=== PATIENT | female | born 1950 | race Caucasian/White ===

== ENCOUNTER 2024-06-09 08:43 | Emergency (ER) | payer MEDICARE, SELFPAY ==
[2024-06-09 09:21] VITALS: BP 139/70; PULSE 88; RESP 18; TEMP 36.4; O2SAT 93; BMI 15.4
--- NOTE | 2024-06-09 10:03 | XRR_ITS ---
PROCEDURE INFORMATION: Exam: XR Chest Exam date and time: 06/09/2024 11:14 AM Age: 74 years old Clinical indication: Other: Weakness TECHNIQUE: Imaging protocol: Radiologic exam of the chest. Views: 1 view. COMPARISON: No relevant prior studies available. FINDINGS: Lungs: Unremarkable. No consolidation. Pleural spaces: Unremarkable. No pleural effusion. No pneumothorax. Heart/Mediastinum: Unremarkable. No cardiomegaly. Bones/joints: Mild degenerative disease of the left acromioclavicular joint. Mild curvature of the thoracolumbar spine convex to the right. Organs: Calcified gallstones in the right upper quadrant. XR/XR chest 1V portable [id number] IMPRESSION: No acute cardiopulmonary process.
[2024-06-09 10:34] LABS: Basophils % 0.6 %; Eosinophils % 0.3 %; Hematocrit 40.7 % (36-47); Lymphocytes # 1.1 10^3/uL (0.8-4.8); Lymphocytes % 15.6 %; Mean Corpuscular HGB Conc 34.2 g/dL (30-55); Mean Corpuscular Hemoglobin 31.3 pg (27-33); Mean Corpuscular Volume 91.7 fl (85-98); Mean Platelet Volume 9.7 fL (7.4-10.4); Monocytes # 0.6 10^3/uL (0.2-0.9); Monocytes % 7.9 %; Neutrophils # 5.43 10^3/uL (1.8-7.7); Neutrophils % 75.3 %; Nucleated Red Blood Cells % 0 %; Platelet Count 264 10^3/cmm (157-399); Red Blood Count 4.44 10^6/uL (3.85-5.65); Red Cell Distribution Width 14.6 % (12.1-15.1)
[2024-06-09 11:07] LABS: Alanine Aminotransferase 47 U/L (0-33); Albumin Level 3.9 g/dL (3.5-5.2); Alkaline Phosphatase 95 U/L (35-105); Aspartate Amino Transferase 49 U/L (0-32); Blood Urea Nitrogen 7 mg/dL (8-23); Calcium 8.9 mg/dL (8.5-10.5); Carbon Dioxide 25 mmol/L (22-29); Chloride 97 mmol/L (98-107); Creatinine Clr Calc Pharmacy 40.9647; Globulin 2.7 g/dL (1.3-4.6); Glucose 126 mg/dL (65-115); Magnesium 2.2 mg/dL (1.7-2.3); Osmolality Calculated 270 mOsm/kg (285-295); Sodium 130 mmol/L (136-145); Thyroid Stimulating Hormone 1.95 uIU/mL (0.27-4.20); Total Bilirubin 1.2 mg/dL (0.15-1.2); Total Protein 6.6 g/dL (6.6-8.7)
[2024-06-09 11:11] VITALS: BP 143/84; PULSE 78; RESP 16; O2SAT 99
--- NOTE | 2024-06-09 11:36 | CTR_ITS ---
PROCEDURE INFORMATION: Exam: CT Abdomen And Pelvis With Contrast Exam date and time: 06/09/2024 11:55 AM Age: 74 years old Clinical indication: Abdominal pain; Generalized; Additional info: Abd pain TECHNIQUE: Imaging protocol: Computed tomography of the abdomen and pelvis with contrast. Radiation optimization: All CT scans at this facility use at least one of these dose optimization techniques: automated exposure control; mA and/or kV adjustment per patient size (includes targeted exams where dose is matched to clinical indication); or iterative reconstruction. Contrast material: OMNIPAQUE 350; Contrast volume: 75 ml; Contrast route: INTRAVENOUS (IV); COMPARISON: CR (CHEST, ) 06/09/2024 11:14 AM RADIATION DOSE METRICS: Total DLP (mGy-cm): 295.27 FINDINGS: Liver: Normal. No mass. Gallbladder and biliary ducts: Calcified gallstones. Pancreas: Normal. No ductal dilation. Spleen: Normal. No splenomegaly. Adrenal glands: Normal. No mass. Kidneys and ureters: 4 mm simple cyst in the interpolar region of the right kidney. No hydronephrosis on either side. Stomach and bowel: Unremarkable. No obstruction. No mucosal thickening. Appendix: No evidence of appendicitis. Intraperitoneal space: Unremarkable. No free air. No significant fluid collection. Vasculature: Vascular calcifications. Pelvic phleboliths. Lymph nodes: Unremarkable. No enlarged lymph nodes. Urinary bladder: Unremarkable as visualized. Reproductive: Calcified uterine fibroids. Bones/joints: Mild degenerative disease of bilateral sacroiliac joints, symphysis pubis and bilateral hip joints. Mild curvature of the lumbar spine convex to the left. No compression deformity of the vertebral bodies. No spondylolisthesis. Posterior osteophyte disc complex at L3-L4 and L4-L5 with moderate bony canal stenosis. Soft tissues: Fat containing umbilical hernia. CT/CT abdomen pelvis w con* [id number] IMPRESSION: 1. Cholelithiasis with no changes of acute cholecystitis. 2. No acute intra-abdominal process. COMMENTS: Consistent with the [employer]'s Incidental Findings Committee white paper (J Am Ginger Radiol 2018): Any incidental renal lesion less than 1 cm or classified as too small to characterize, or any incidental cystic renal lesion characterized as simple-appearing, is likely benign. No follow-up imaging is recommended for these lesions per consensus recommendations based on imaging criteria.
[2024-06-09] MEDS: iohexol 350 mg/mL 500 mL Btl (per mL) IV (12:00)
--- NOTE | 2024-06-09 12:07 | ECG_ITS ---
[facility] Test Date: 2024-06-09 Pat Name: Monica Taylor Department: Room: Gender: Female [employer]: : 1950 Requested By: Fox Brito Order Number: [id number] Dionne MD: Carlos Brownlee M.D. Measurements Intervals [place] Rate: 89 P: 82 [place]: 137 QRS: 35 QRSD: 76 T: 62 QT: 371 QTc: 452 Interpretive Statements SINUS RHYTHM WITH MARKED SINUS ARRHYTHMIA POSSIBLE LEFT ATRIAL ENLARGEMENT [-0.1mV P-WAVE IN V1/V2] No previous ECG available for comparison Electronically Signed On 06-10-2024 18:47:30 CDT by Carlos Brownlee M.D. [id number]
--- NOTE | 2024-06-09 12:20 | ED_ITS ---
HPI - Weakness 2 General: Chief complaint: Weakness Stated complaint: weakness, no apptite Time Seen by Provider: 06/09/24 11:16 Source: patient Mode of arrival: ambulatory Limitations: no limitations History of Present Illness: 74-year-old female states she has been h aving generalized weakness for months. She states she feels like she is losing blood in her stool will ask her stool color she states its brown has not seen any actual blood but she is concerned she may be anemic she states she is also had a decreased appetite she denies Associated symptoms: Denies chest pain, chills, dysuria, fever(s), headache(s), nausea or vomiting Review of Systems 2 Const: Reports: fatigue and malaise; Denies: fever(s), chills, body aches or change in appetite ENMT: Denies: throat pain or dental pain Card: Denies: chest pain Resp: Denies: dyspnea GI: Denies: abdominal pain, nausea, vomiting or diarrhea : Denies: dysuria Musc: Denies: neck pain or back pain Skin/Breast: Denies: rash Neuro: Denies: headache(s) Physical Exam 2 Const: COMMON NORMALS: no acute distress, patient oriented x3 and healthy appearing HENMT: COMMON NORMALS: normocephalic and atraumatic HEAD & SCALP: n ormocephalic and atraumatic Eye: COMMON NORMALS: Equal, round and reactive pupils present and EOMs intact bilaterally PUPIL: Yes Equal, round and reactive pupils present Neck/C-Spine: COMMON NORMALS: full ROM and supple Chest: COMMONS NORMALS: normal inspection of the chest and normal palpation of entire chest wall Resp: COMMON NORMALS: normal respiratory effort, No retractions, No use of accessory muscles and clear to auscultation bilaterally AUSCULTATION: clear to auscultation bilaterally Cardio: COMMON NORMALS: regular rate, regular rhythm and No murmurs present (Cardio) RATE: regular rate RHYTHM: regular rhythm GI: COMMON NORMALS: Normal to inspection, nondistended, normoactive bowel sounds present, Soft to palpation, non-tender and no masses PALPATION: Yes Soft to palpation Extremity: COMMON NORMALS: normal to inspection and full ROM Neuro: COMMON NORMALS: patient oriented x3, moves all extremities and no focal motor deficits Psych: COMMON NORMALS: mental status grossly normal, Normal thought process present and cooperative THOUGHT PROCESS: Normal thought process present Skin: COMMON NORMALS: no rashes or lesions noted and no wounds GENERAL SKIN EXAM: no rashes or lesions noted Course 2 Vital Signs: Vital signs: Vital Signs Temperature 97.5 F L 06/09/24 09:21 Pulse Rate 84 06/09/24 13:37 Respiratory Rate 16 06/09/24 12:23 Blood Pressure 153/69 06/09/24 13:37 Pulse Oximetry 99 06/09/24 13:37 Oxygen Delivery Me thod Room Air 06/09/24 13:00 MDM - Weakness Medical Decision Making Patient presents here with generalized weakness she is well-appearing here blood work CT scans normal she feels improved after fluids she is stable for discharge we will go to her primary care physician she is return if worsening she understands agrees to plan. Medical Records I reviewed the patient's medical records. Lab Data I reviewed the patient's lab results. 06/09/24 10:18 06/09/24 10:18 Radiology Impressions Chest X-Ray 06/09/24 10:03 IMPRESSION: No acute cardiopulmonary process. Abdomen/Pelvis CT 06/09/24 11:36 IMPRESSION: 1. Cholelithiasis with no changes of acute cholecystitis. 2. No acute intra-abdominal process. COMMENTS: Consistent with the [employer]'s Incidental Findings Committee white paper (J Am Ginger Radiol 2018): Any incidental renal lesion less than 1 cm or classified as too small to characterize, or any incidental cystic renal lesion characterized as simple-appearing, is likely benign. No follow-up imaging is recommended for these lesions per consensus recommendations based on imaging criteria. Laboratory Results WBC 7.20 10^3/uL (3.29-11.43) 06/09/24 10:18 RBC 4.44 10^6/uL (3.85-5.65) 06/09/24 10:18 Hgb 13.90 g/dL (11.27-16.99) 06/09/24 10:18 Hct 40.7 % (36-47) 06/09/24 10:18 MCV 91.7 fl (85-98) 06/09/24 10:18 MCH 31.3 pg (27-33) 06/09/24 10:18 MCHC 34.2 g/dL (30-55) 06/09/24 10:18 RDW 14.6 % (12.1-15.1) 06/09/24 10:18 Plt Count 264 10^3/cmm (157-399) 06/09/24 10:18 MPV 9.7 fL (7.4-10.4) 06/09/24 10:18 Neut % (Auto) 75.3 % 06/09/24 10:18 Lymph % (Auto) 15.6 % 06/09/24 10:18 [place] % (Auto) 7.9 % 06/09/24 10:18 Eos % (Auto) 0.3 % 06/09/24 10:18 Baso % (Auto) 0.6 % 06/09/24 10:18 Neut # (Auto) 5.43 10^3/uL (1.8-7.7) 06/09/24 10:18 Lymph # (Auto) 1.1 10^3/uL (0.8-4.8) 06/09/24 10:18 [place] # (Auto) 0.6 10^3/uL (0.2-0.9) 06/09/24 10:18 Eos # (Auto) 0.0 10^3/uL (0.0-0.8) 06/09/24 10:18 Baso # (Auto) 0.0 10^3/uL (0.0-0.1) 06/09/24 10:18 Nucleated RBC % (auto) 0 % 06/09/24 10:18 Nucleated RBCs # 0.0 /100WBC 06/09/24 10:18 Sodium 130 mmol/L (136-145) L 06/09/24 10:18 Potassium 4.0 mmol/L (3.5-5.1) 06/09/24 10:18 Chloride 97 mmol/L (98-107) L 06/09/24 10:18 Carbon Dioxide 25 mmol/L (22-29) 06/09/24 10:18 Anion Gap 12.0 (5-19) 06/09/24 10:18 BUN 7 mg/dL (8-23) L 06/09/24 10:18 Creatinine 0.7 mg/dL (0.5-0.9) 06/09/24 10:18 GFR Calculation Not Reportable 06/09/24 10:18 Glucose 126 mg/dL (65-115) H 06/09/24 10:18 Calculated Osmolality 270 mOsm/kg (285-295) L 06/09/24 10:18 Calcium 8.9 mg/dL (8.5-10.5) 06/09/24 10:18 Magnesium 2.2 mg/dL (1.7-2.3) 06/09/24 10:18 Total Bilirubin 1.2 mg/dL (0.15-1.2) 06/09/24 10:18 AST 49 U/L (0-32) H 06/09/24 10:18 ALT 47 U/L (0-33) H 06/09/24 10:18 Alkaline Phosphatase 95 U/L (35-105) 06/09/24 10:18 Total Protein 6.6 g/dL (6.6-8.7) 06/09/24 10:18 Albumin 3.9 g/dL (3.5-5.2) 06/09/24 10:18 Globulin 2.7 g/dL (1.3-4.6) 06/09/24 10:18 TSH 1.95 uIU/mL (0.27-4.20) 06/09/24 10:18 Urine Color Yellow (Yellow) 06/09/24 12:28 Urine Appearance Clear (CLEAR) 06/09/24 12:28 Urine pH 7.0 (5-7) 06/09/24 12:28 Ur Specific [place] 1.044 (1.005-1.030) H 06/09/24 12:28 Urine Protein Negative (Negative) 06/09/24 12:28 Urine Glucose (UA) Negative (Normal) 06/09/24 12:28 Urine Ketones 2+ (Negative) H 06/09/24 12:28 Urine Blood Negative (Negative) 06/09/24 12:28 Urine Nitrate Negative (Negative) 06/09/24 12:28 Urine Bilirubin Negative (Negative) 06/09/24 12:28 Urine Urobilinogen 1.0 mg/dL (Negative) 06/09/24 12:28 Ur Leukocyte Esterase Negative (Negative) 06/09/24 12:28 Urine RBC 0-2 /hpf (0-2) 06/09/24 12:28 Urine WBC 0-5 /hpf (0-5) 06/09/24 12:28 Ur Squamous Epith Cells 0-5 /hpf (0-5) 06/09/24 12:28 Amorphous Sediment Not Reportable 06/09/24 12:28 Urine Bacteria None seen /hpf (NONE) 06/09/24 12:28 Hyaline Casts 0.40 /lpf 06/09/24 12:28 All radiology interpretation(s) finalized by discharge EKG Data EKG 1: I personally reviewed and interpreted this EKG as follows: EKG interpretation date: 06/09/24 EKG interpretation time: 12:07 Interpretation: nsr hr [address] elevation qrs 76 qtc 417 Discharge Plan Discharge Patient Disposition: Home Clinical Impression: Weakness Condition: Stable Discharge Orders: Discharge ED (Routine); Ordered 06/09/24 Ordered By: Fox Brito Discharge Diet: Advance as tolerated Discharge Activity: Resume usual activity Patient Instructions: Weakness (ED) Coding Level of Care Code ED Corner Trimmer Operator for Chg Fwd Related Data Allergies Allergy/AdvReac Type Severity Reaction Status Date / Time diphenhydramine Allergy ADR-Anxiety Verified 06/09/24 09:24 [From [facility]]
[2024-06-09] MEDS: sodium chloride 0.9% 1,000 ML 999 ML IV (12:21)
[2024-06-09 12:23] VITALS: BP 139/79; PULSE 84; RESP 16; O2SAT 100
[2024-06-09 12:30] VITALS: BP 135/85; PULSE 79; O2SAT 100
[2024-06-09 12:36] LABS: Bilirubin Urine Negative (Negative); Blood Urine Negative (Negative); Glucose Urine UA Negative (Normal); Ketones Urine 2+ (Negative); Leukocyte Esterase Urine Negative (Negative); Nitrate Urine Negative (Negative); Protein Urine Negative (Negative); Urine Appearance Clear (CLEAR); Urine Color Yellow (Yellow)
[2024-06-09 12:38] LABS: Add Urine Microscopic? YES; Bacteria Urine None Seen /hpf; RBC Urine 0-2 /hpf (0-2); Squamous Epithelial Cell Urine 0-5 /hpf (0-5); WBC Urine 0-5 /hpf (0-5)
[2024-06-09 12:40] LABS: Specific Gravity, Urine 1.044 (1.005-1.030)
--- NOTE | 2024-06-09 12:54 | PC.NURSE ---
pt refused Zofran, kept stating I'm not nauseous. I haven't been throwing up.
[2024-06-09 13:00] VITALS: BP 137/70; PULSE 74; O2SAT 94
[2024-06-09 13:37] VITALS: BP 153/69; PULSE 84; O2SAT 99
--- NOTE | 2024-06-10 08:26 | DCPLANNER ---
[facility]
== END 2024-06-09 13:38 | disposition home or self-care (01) ==
PROVIDERS: Emergency Provider Emergency Medicine
DX: R53.1 Weakness (principal)
CPT/HCPCS: 36415; 71045; 74177; 80053; 81001; 83735; 84443; 85025; 93005; 96360; 99285; J7030

== ENCOUNTER 2024-06-27 10:53 | Inpatient (IN) | payer MEDICARE, SELFPAY ==
[2024-06-27 11:23] VITALS: BP 130/84; PULSE 88; RESP 16; TEMP 36.5; O2SAT 91; BMI 22.3
--- NOTE | 2024-06-27 11:45 | XR_ITS ---
WS: [email or web address] Portable AP upright chest, 06/27/2024 Clinical Data: ams Comparison: Portable chest, 06/09/2024 Findings: No nodules, masses or effusions are seen. The heart is normal. The pulmonary vascularity is not increased. No pneumonia or pneumothorax is seen. There is a dextroscoliosis. The aortic arch anuj ws mild tortuosity. XR/XR chest 1V portable [id number] Impression: Atherosclerosis.
--- NOTE | 2024-06-27 11:45 | XR_ITS ---
WS: [email or web address] Left foot, 3 views, 06/27/2024 Clinical Data: pain Comparison: None. Findings: No fractures or dislocations are seen. No bone destruction or erosion is noted. The joint spaces and soft tissues are normal. There is a plantar spur. XR/XR foot LT min 3V* [id number] Impression: Negative left foot.
--- NOTE | 2024-06-27 11:45 | CT_ITS ---
WS: [id number] CT HEAD NONCONTRAST HISTORY: ams TECHNIQUE: Contiguous axial imaging performed through the brain. Bone and soft tissue windows. Sagitt al and coronal reformats reviewed. All CT scans at [facility] use at least one of these dose optimization techniques: automated exposure control; mA and/or kV adjustment per patient size (includ es targeted exams where dose is matched to clinical indication); or iterative reconstruction. DLP: 959.88 mGy.cm COMPARISON: None available. No acute intracranial hemorrhage, midline shift or mass effect. Mild bilateral symmetric atrophy. Minimal small vessel disease. Tiny acute lacunar infarct anterior l imb of the RIGHT internal capsule. Mild cerebellar atrophy. Ventricles: Normal size with no hydrocephalus. No inferior displacement the cerebellar tonsils. Paranasal sinuses: As visualized are clear. Mastoid air cells: Well pneumatized. Calvarium and scalp: Skull is intact with no soft tissue edema or swelling. CT/CT head wo con* [id number] IMPRESSION: 1. No acute intracranial hemorrhage or edema. 2. Mild atrophy and mild small vessel disease.
--- NOTE | 2024-06-27 11:45 | XR_ITS ---
WS: [email or web address] Right foot, 3 views, 06/27/2024 Clinical Data: pain Comparison: None. Findings: No fractures or dislocations are seen. No bone destruction or erosion is noted. The joint spaces and soft tissues are normal. There is a plantar spur. XR/XR foot RT min 3V* [id number] Impression: Negative right foot.
--- NOTE | 2024-06-27 12:05 | PC.NURSE ---
USED DOPPLAR TO AUSCULTATE PEDAL PULSES. 3+ PITTING EDEMA ON BILATERAL EXTREMITIES. NO PULSES ABLE TO BE AUSCULTATED ON TOPS OF FEET. ABLE TO AUSCULTATE PULSES WITH THE DOPPLAR ON THE INSIDE OF BILATERAL ANKLES.
[2024-06-27 12:48] LABS: Bilirubin Urine Negative (Negative); Blood Urine Negative (Negative); Glucose Urine UA Negative (Normal); Ketones Urine 3+ (Negative); Leukocyte Esterase Urine 1+ (Negative); Nitrate Urine Negative (Negative); Protein Urine 1+ (Negative); Urine Appearance Clear (CLEAR); Urine Color Dark Yellow (Yellow); pH Urine 5.5 (5-7)
--- NOTE | 2024-06-27 12:49 | ED_ITS ---
HPI - Altered Mental Status 2 General: Chief Complaint: Altered Mental Status Stated Complaint: eval Time Seen by Provider: 06/27/24 11:44 Source: patient Mode of arrival: ambulatory Limitations: altered mental status History of Present Illness: 74-year-old female states that she has b een living with her stepdaughter over the last few weeks. Patient is quite confused here and history is difficult to get from her patient she has been living with states that she has been increasingly confused and weak states she is not able to take care of her anymore states that she has not been eating or drinking has been refusing to take her shoes or her close off all patient complains to me is foot pain she is quite confused she knows her name but does not know where she is or the date. Related Data Home Medications Medication Instructions Recorded Confirmed No Known Home Medications 06/27/24 06/27/24 Allergies Allergy/AdvReac Type Severity Reaction Status Date / Time diphenhydramine Allergy ADR-Anxiety Verified 06/09/24 09:24 [[facility]] Review of Systems 2 General: Reports: ROS unobtainable due to mental status Physical Exam 2 Const: COMMON NORMALS: negative for patient oriented x3 HENMT: COMMON NORMALS: normocephalic and atraumatic HEAD & SCALP: n ormocephalic and atraumatic Eye: COMMON NORMALS: conjunctivae normal CONJUNCTIVA: Yes conjunctivae normal Neck/C-Spine: COMMON NORMALS: full ROM and supple Chest: COMMONS NORMALS: normal inspection of the chest Resp: COMMON NORMALS: normal respiratory effort, No retractions, No use of accessory muscles and clear to auscultation bilaterally AUSCULTATION: clear to auscultation bilaterally Cardio: COMMON NORMALS: regular rate, regular rhythm and No murmurs present (Cardio) RATE: regular rate RHYTHM: regular rhythm GI: COMMON NORMALS: Normal to inspection, nondistended, normoactive bowel sounds present, Soft to palpation, non-tender and no masses PALPATION: Yes Soft to palpation Extremity: COMMON NORMALS: normal to inspection and full ROM Neuro: COMMON NORMALS: moves all extremities and no focal motor deficits; negative for patient oriented x3 Psych: COMMON NORMALS: mental status grossly normal, Normal thought process present and cooperative THOUGHT PROCESS: Normal thought process present Skin: COMMON NORMALS: no rashes or lesions noted and no wounds GENERAL SKIN EXAM: no rashes or lesions noted Course 2 Vital Signs: Vital signs: Vital Signs Temperature 97.7 F 06/27/24 11:23 Pulse Rate 88 06/27/24 11:23 Respiratory Rate 16 06/27/24 11:23 Blood Pressure 130/84 06/27/24 11:23 Pulse Oximetry 91 06/27/24 11:23 Oxygen Delivery Me thod Room Air 06/27/24 11:23 MDM - Altered Mental Status Medical Decision Making Patient presents here with possible status along with generalized weakness patient is here with family feels unable to take care of her anymore she is quite confused as well will admit at this time for her confusion. Medical Records I reviewed the patient's medical records. Lab Data I reviewed the patient's lab results. 06/27/24 13:17 06/27/24 13:17 Radiology Impressions Chest X-Ray 06/27/24 11:45 Impression: Atherosclerosis. Foot X-Ray 06/27/24 11:45 Impression: Negative left foot. Head CT 06/27/24 11:45 IMPRESSION: 1. No acute intracranial hemorrhage or edema. 2. Mild atrophy and mild small vessel disease. Laboratory Results WBC 9.73 10^3/uL (3.29-11.43) 06/27/24 13:17 RBC 4.72 10^6/uL (3.85-5.65) 06/27/24 13:17 Hgb 14.80 g/dL (11.27-16.99) 06/27/24 13:17 Hct 44.0 % (36-47) 06/27/24 13:17 MCV 93.2 fl (85-98) 06/27/24 13:17 MCH 31.4 pg (27-33) 06/27/24 13:17 MCHC 33.6 g/dL (30-55) 06/27/24 13:17 RDW 15.0 % (12.1-15.1) 06/27/24 13:17 Plt Count 257 10^3/cmm (157-399) 06/27/24 13:17 MPV 11.7 fL (7.4-10.4) H 06/27/24 13:17 Neut % (Auto) 84.5 % 06/27/24 13:17 Lymph % (Auto) 8.7 % 06/27/24 13:17 [place] % (Auto) 5.9 % 06/27/24 13:17 Eos % (Auto) 0.2 % 06/27/24 13:17 Baso % (Auto) 0.3 % 06/27/24 13:17 Neut # (Auto) 8.22 10^3/uL (1.8-7.7) H 06/27/24 13:17 Lymph # (Auto) 0.9 10^3/uL (0.8-4.8) 06/27/24 13:17 [place] # (Auto) 0.6 10^3/uL (0.2-0.9) 06/27/24 13:17 Eos # (Auto) 0.0 10^3/uL (0.0-0.8) 06/27/24 13:17 Baso # (Auto) 0.0 10^3/uL (0.0-0.1) 06/27/24 13:17 Nucleated RBC % (auto) 0 % 06/27/24 13:17 Nucleated RBCs # 0.0 /100WBC 06/27/24 13:17 ESR 5 mm/hr (0-15) 06/27/24 13:17 Sodium 141 mmol/L (136-145) 06/27/24 13:17 Potassium 4.3 mmol/L (3.5-5.1) 06/27/24 13:17 Chloride 100 mmol/L (98-107) 06/27/24 13:17 Carbon Dioxide 23 mmol/L (22-29) 06/27/24 13:17 Anion Gap 22.3 (5-19) H 06/27/24 13:17 BUN 21 mg/dL (8-23) 06/27/24 13:17 Creatinine 0.5 mg/dL (0.5-0.9) 06/27/24 13:17 GFR Calculation Not Reportable 06/27/24 13:17 Glucose 83 mg/dL (65-115) 06/27/24 13:17 Calculated Osmolality 294 mOsm/kg (285-295) 06/27/24 13:17 Calcium 9.1 mg/dL (8.5-10.5) 06/27/24 13:17 Total Bilirubin 1.2 mg/dL (0.15-1.2) 06/27/24 13:17 AST 37 U/L (0-32) H 06/27/24 13:17 ALT 61 U/L (0-33) H 06/27/24 13:17 Alkaline Phosphatase 91 U/L (35-105) 06/27/24 13:17 C-Reactive Protein 7.3 mg/L (0.0-4.9) H 06/27/24 13:17 Total Protein 6.9 g/dL (6.6-8.7) 06/27/24 13:17 Albumin 4.1 g/dL (3.5-5.2) 06/27/24 13:17 Globulin 2.8 g/dL (1.3-4.6) 06/27/24 13:17 Urine Color Dark yellow (Yellow) A 06/27/24 12:36 Urine Appearance Clear (CLEAR) 06/27/24 12:36 Urine pH 5.5 (5-7) 06/27/24 12:36 Ur Specific [place] 1.034 (1.005-1.030) H 06/27/24 12:36 Urine Protein 1+ (Negative) A 06/27/24 12:36 Urine Glucose (UA) Negative (Normal) 06/27/24 12:36 Urine Ketones 3+ (Negative) H 06/27/24 12:36 Urine Blood Negative (Negative) 06/27/24 12:36 Urine Nitrate Negative (Negative) 06/27/24 12:36 Urine Bilirubin Negative (Negative) 06/27/24 12:36 Urine Urobilinogen 1.0 mg/dL (Negative) 06/27/24 12:36 Ur Leukocyte Esterase 1+ (Negative) A 06/27/24 12:36 Urine RBC 3-5 /hpf (0-2) 06/27/24 12:36 Urine WBC 6-10 /hpf (0-5) 06/27/24 12:36 Ur Squamous Epith Cells 0-5 /hpf (0-5) 06/27/24 12:36 Amorphous Sediment Not Reportable 06/27/24 12:36 Urine Bacteria None seen /hpf (NONE) 06/27/24 12:36 Hyaline Casts 5.36 /lpf 06/27/24 12:36 All radiology interpretation(s) finalized by discharge Discharge Plan Discharge Patient Disposition: Admitted As Inpatient Clinical Impression: Altered mental status, Generalized weakness Condition: Stable Prescriptions: No Action No Known Home Medications Patient Instructions: Altered Mental Status (ED) Coding Level of Care Code ED Tax Professional for Constantino Bowden
[2024-06-27 12:53] LABS: Add Urine Microscopic? YES; Bacteria Urine None Seen /hpf; Hyaline Casts Urine 5.36 /lpf; Squamous Epithelial Cell Urine 0-5 /hpf (0-5)
[2024-06-27 12:57] LABS: Specific Gravity, Urine 1.034 (1.005-1.030)
[2024-06-27 12:58] LABS: Add Urine Culture? No
[2024-06-27 13:32] LABS: Basophils % 0.3 %; Eosinophils % 0.2 %; Lymphocytes # 0.9 10^3/uL (0.8-4.8); Lymphocytes % 8.7 %; Mean Corpuscular HGB Conc 33.6 g/dL (30-55); Mean Corpuscular Hemoglobin 31.4 pg (27-33); Mean Corpuscular Volume 93.2 fl (85-98); Mean Platelet Volume 11.7 fL (7.4-10.4); Monocytes # 0.6 10^3/uL (0.2-0.9); Monocytes % 5.9 %; Neutrophils # 8.22 10^3/uL (1.8-7.7); Neutrophils % 84.5 %; Nucleated Red Blood Cells % 0 %; Platelet Count 257 10^3/cmm (157-399); Red Blood Count 4.72 10^6/uL (3.85-5.65); White Blood Count 9.73 10^3/uL (3.29-11.43)
[2024-06-27 13:37] LABS: Erythrocyte Sedimentation Rate 5 mm/hr (0-15)
[2024-06-27 13:47] LABS: Alanine Aminotransferase 61 U/L (0-33); Albumin Level 4.1 g/dL (3.5-5.2); Alkaline Phosphatase 91 U/L (35-105); Aspartate Amino Transferase 37 U/L (0-32); Blood Urea Nitrogen 21 mg/dL (8-23); C Reactive Protein 7.3 mg/L (0.0-4.9); Calcium 9.1 mg/dL (8.5-10.5); Carbon Dioxide 23 mmol/L (22-29); Chloride 100 mmol/L (98-107); Creatinine Clr Calc Pharmacy 56.6027; Globulin 2.8 g/dL (1.3-4.6); Glucose 83 mg/dL (65-115); Osmolality Calculated 294 mOsm/kg (285-295); Sodium 141 mmol/L (136-145); Total Bilirubin 1.2 mg/dL (0.15-1.2); Total Protein 6.9 g/dL (6.6-8.7)
[2024-06-27 13:50] LABS: Anion Gap 22.3 (5-19); Potassium 4.3 mmol/L (3.5-5.1)
--- NOTE | 2024-06-27 14:32 | PC.NURSE ---
PT refusing vs. Pt also still refuses to answer suicide assessment questions.
--- NOTE | 2024-06-27 14:57 | PM.HP ---
Providers/Chief Complaint Chief Complaint: eval History of Present Illness Monica Taylor is a 74 year old female who has presented to the hospital with generalized weakness fatigue and not been able to eat and to care for self. Stepdaughter is stating that 2 weeks ago she moved in because she was reported by the nurse her barriers that she was wandering in the neighborhood, she seems to have intermittent confusion, patient is consistently saying that she does not want to be admitted or interesting [place] [facility] placement however when I asked her who make decisions for her she started asking her stepdaughter if she would take that responsibility. She is denying chest pain shortness of breath diarrhea vomiting or dysuria. Patient has not taking care of herself very well, her feet are covered with moisture with dark-colored shoe sole that she kept wearing, she was not taking of shoes at home. As per the stepdaughter she has not eaten or drank much in last few days, she is concerned that Monica will not do well and she is dependent on an electric scooter to ambulate in the house and requesting [place] [facility] placement is at the bedside who has been living in a different house for last few years Review of Systems Const: Denies: fever(s) Eyes: Denies: change in vision ENMT: Denies: throat pain Card: Denies: chest pain Resp: Denies: dyspnea GI: Denies: abdominal pain Medications/Allergies Home Medications Medication Instructions Recorded Confirmed Last Taken Type No Known Home Medications 06/27/24 06/27/24 Unknown History Allergies Allergy/AdvReac Type Severity Reaction Status Date / Time diphenhydramine Allergy ADR-Anxiety Verified 06/09/24 09:24 [From Benadjulisal] Vitals/I&O/Wt Last Vital Signs Temp 97.7 F 06/27/24 11:23 Pulse 88 06/27/24 11:23 Resp 16 06/27/24 11:23 BP 130/84 06/27/24 11:23 Pulse Ox 91 06/27/24 11:23 O2 Del Method Room Air 06/27/24 11:23 Weight last 48 hrs Weight 58.967 kg Physical Exam Narrative: Unkept appearance Deconditioned No active chest pain Hemodynamic stable Currently on room air Moist skin of lower extremities and foot noted I do not see any active sign of cellulitis No neurovascular compromise Patient is emaciated malnourished Stepdasusan and at the bedside I do not see any focal deficit S1, S2 Data 06/27/24 13:17 06/27/24 13:17 A&P Assessment and plan (1) Altered mental status: (2) Generalized weakness: (3) Failure to thrive: Plan Metabolic encephalopathy related to dehydration At this point patient is answer my questions appropriately G weakness Failure to thrive Not been able to eat or drink much, losing weight, Will request physical therapy Probably will need [place] [facility] placement if family not able to take care of her Case management consultation has been living separately for last few years as per the stepdaughter She might appoint rodrigo as a medical DPOA Full code Cardiac diet As per the stepdaughter Monica has been confused intermittently no last few weeks there is concern for dementia At this point she is able to make good eye contact, answer my question appropriately She seems to have poor insight but stating that she does not have any pay source to pay for [place] [facility] so she does not want to go there She is also stating that she is depressed and wants to do something but she has not decided yet I will consult psych for further evaluation I will start her on antidepressants patient not endorsing suicidal ideation Attestations Medical Necessity Statement*: More than 2 midnights anticipated Diagnoses Altered mental status R41.82 Generalized weakness R53.1 Failure to thrive
[2024-06-27 16:13] VITALS: BP 137/77; PULSE 90; RESP 14; O2SAT 99
[2024-06-27 16:25] LABS: Procalcitonin 0.06 ng/mL (0-0.5)
[2024-06-27 16:57] LABS: D Dimer 3.13 ug/mLFEU (0-0.59)
[2024-06-27 17:10] LABS: Estmated Average Glucose 120; Hemoglobin A1C 5.8 % (4.0-6.0)
[2024-06-27] MEDS: cefTRIAXone 1,000 mg SDV 1000 MG IVP (17:26)
[2024-06-27] MEDS: sodium chloride 0.9% 1,000 ML 75 ML IV (17:27)
--- NOTE | 2024-06-27 17:42 | USR_ITS ---
PROCEDURE INFORMATION: Exam: US Duplex Lower Extremity Veins, Bilateral Exam date and time: 06/27/2024 9:39 PM Age: 74 years old Clinical indication: Edema, localized; Lower extremity, bilateral; Additional info: Swelling TECHNIQUE: Imaging protocol: Real-time duplex ultrasound of the bilateral extremities with 2-D roland scale, color Doppler flow and spectral waveform analysis including responses to compression and other maneuvers (when performed) with image documentation. Complete exam focused on the lower extremity veins. COMPARISON: CT abdomen pelvis w con* [id number] 06/09/2024 11:55 AM FINDINGS: Right deep veins: Unremarkable. The common femoral, femoral, proximal profunda femoral and popliteal veins are patent without thrombus. Normal Doppler waveforms. Normal compressibility and/or augmentation response. Left deep veins: Hyperechogenicity within the left popliteal vein without color flow or spectral waveform consistent with deep venous thrombosis. The thrombus central tendons into the posterior tibial and peroneal veins. The common femoral, femoral, and proximal profunda femoral veins are patent without thrombus. Superficial veins: Greater saphenous veins at the saphenofemoral junctions are patent bilaterally without thrombus. Soft tissues: Unremarkable. US/[place] [id number] IMPRESSION: 1. Acute deep venous thrombosis is noted extending from the left popliteal vein through the left posterior tibial and peroneal veins. 2. No DVT in the right lower extremity.
--- NOTE | 2024-06-27 17:42 | CTR_ITS ---
PROCEDURE INFORMATION: Exam: CTA Chest With Contrast Exam date and time: 06/28/2024 12:30 AM Age: 74 years old Clinical indication: Other: Left leg has dvt, falls TECHNIQUE: Imaging protocol: Computed tomographic angiography of the chest with contrast. Exam focused on the arteries. 3D rendering (Not supervised by radiologist): MIP and/or 3D reconstructed images were created by the technologist. Radiation optimization: All CT scans at this facility use at least one of these dose optimization techniques: automated exposure control; mA and/or kV adjustment per patient size (includes targeted exams where dose is matched to clinical indication); or iterative reconstruction. Contrast material: OMNI 350; Contrast volume: 75 ml; Contrast route: INTRAVENOUS (IV); COMPARISON: CR XR chest 1V portable [id number] 06/27/2024 11:51 AM RADIATION DOSE METRICS: Total DLP (mGy-cm): 189.68 FINDINGS: Pulmonary arteries: Filling defects within the posterior right upper lobe segmental (series 10, image 209), lower lobar (series 10, image 315), and lower posterior segmental pulmonary arteries (series 10, image 361) consistent with pulmonary emboli. Aorta: Unremarkable. No aortic aneurysm. No aortic dissection. Lungs: Unremarkable. No consolidation. No masses. Pleural spaces: Unremarkable. No pneumothorax. No pleural effusion. Heart: Unremarkable. No cardiomegaly. No pericardial effusion. Heart RV/LV ratio: 0.79 Lymph nodes: Unremarkable. No enlarged lymph nodes. Gallbladder and biliary ducts: Cholelithiasis without evidence of acute cholecystitis. Bones/joints: Multilevel spondylosis. Soft tissues: Unremarkable. CT/CT angio chest PE protcl [id number] IMPRESSION: 1. Right upper lobe posterior segmental, right lower lobar, and right lower posterior segmental pulmonary emboli. 2. No right heart strain.
[2024-06-27 17:58] LABS: Thyroid Stimulating Hormone 2.44 uIU/mL (0.27-4.20); Vitamin B12 199 pg/mL (232-1245)
--- NOTE | 2024-06-27 18:03 | PC.NURSE ---
Patient refused SCD's. This nurse explained why the order was given and how they help to prevent blood clots. Patient refused.
[2024-06-27 19:30] VITALS: BP 143/79; PULSE 79; RESP 17; TEMP 36.6; O2SAT 96
[2024-06-27] MEDS: enoxaparin 40 mg/0.4 mL Syringe SUBCUT (23:14)
[2024-06-27 23:58] VITALS: BP 156/74; PULSE 91; RESP 16; TEMP 36.9; O2SAT 97
[2024-06-28] VITALS: BP 156/74; PULSE 91; RESP 16; TEMP 36.9; O2SAT 97
[2024-06-28] MEDS: iohexol 350 mg/mL 500 mL Btl (per mL) IV (00:53)
--- NOTE | 2024-06-28 03:30 | P.NPUCON_ITS ---
Providers/Reason for Consult 2 Attending Physician: Blanca Niño MD Psych Consult HPI History of Present Illness Monica Taylor is a 74 year old female Meds Home Medications and Allergies Home Medications Medication Instructions Recorded Confirmed Last Taken Type No Known Home Medications 06/27/24 06/27/24 Unknown History Allergies Allergy/AdvReac Type Severity Reaction Status Date / Time diphenhydramine Allergy ADR-Anxiety Verified 06/09/24 09:24 [From Benadryl] Current Medications Current Medications Generic Name Dose Route Start Last Admin Trade Name Freq PRN Reason Stop Dose Admin Apixaban 10 mg 06/28/24 21:00 07/01/24 08:43 Apixaban 5 Mg Tablet PO 07/05/24 20:59 10 mg BID@0900,2100 CIARA Administration Cyanocobalamin 1,000 mcg 06/30/24 09:00 07/01/24 08:43 Cyanocobalamin 1,000 Mcg/Ml Sdv IM 1,000 mcg DAILY CIARA Administration Escitalopram Oxalate 10 mg 06/28/24 09:00 07/01/24 08:43 Escitalopram 10 Mg Tablet PO 10 mg DAILY CIARA Administration Lisinopril 10 mg 06/28/24 09:00 07/01/24 08:46 Lisinopril 10 Mg Tablet PO 10 mg DAILY CIARA Administration Olanzapine 2.5 mg 07/01/24 09:00 07/01/24 08:43 Olanzapine 5 Mg Tablet PO 2.5 mg Q12H CIARA Administration Senna/Docusate Sodium 1 tab 06/28/24 09:00 07/01/24 08:43 Sennosides-Docusate Tablet PO 1 tab DAILY CIARA Administration Mental Status Exam 2 MSE Comments: This is an underweight versus cachectic white female in hospital gownwith limited grooming and eye contact. Occasionally hiding under covers. No abnormal movements except for psychomotor retardation. Mostly uncooperative with exam in moderate distress. Speech was decreased rate and volume. Mood described as i do not know affect odd and paranoid. Thought process linear. Thought content: Patient denied current suicidal or homicidal ideation, there were no delusions reported but paranoid, persecutory and possibly nihilistic delusions noted, she denied auditory or visual hallucinations reported and she does not appear to be attending to internal stimuli. Attention and concentration were limited and memory was mostly unreliable but none were formally tested. She is alert and oriented x person. Insight, judgment and impulse control are impaired. Vitals/I&O/Wt Last Vital Signs Temp 98.2 F 07/01/24 08:00 Pulse 84 07/01/24 08:00 Resp 16 07/01/24 08:00 BP 129/69 07/01/24 08:00 Pulse Ox 96 07/01/24 08:00 O2 Del Method Room Air 07/01/24 08:00 06/30/24 07/01/24 07/01/24 22:59 06:59 14:59 Intake Total 120 / 360 120 / 480 Output Total 300 / 300 Balance 120 / 360 -180 / 180 Weight last 48 hrs Weight 44.18 kg Weight 44.044 kg Data NPU 06/30/24 06:16 06/30/24 06:16 A&P Assessment and plan (1) DVT (deep venous thrombosis): (2) Pulmonary embolism: (3) Failure to thrive: (4) Altered mental status: (5) Encounter for assessment of decision-making capacity: (6) Depression with anxiety: Plan This is a 74-year-old white female with limited reported history of mental health treatment who presents quite distressed and not answering many questions seeming confused at times. 1. Continue current medication. 2. Patient lacks decision-making capacity. Either due to memory difficulties or mental health she is incapable of articulating her desires, identifying risks, benefits and alternative living situation, expressing comprehension of the different alternatives to treatment plan or even articulating with the plan for treatment is around. 3. Obtain collateral information to understand mental health background. 4. Will continue to follow. Attestations NPU 2 Medical Necessity Statement*: N/A. Please see primary team note for medical necessity. Coding Level of Care Code Acute Code for [facility] Fwd Diagnoses DVT (deep venous thrombosis) I82.409 Pulmonary embolism I26.99 Failure to thrive Altered mental status R41.82 Encounter for assessment of decision-making capacity Z00.8 Depression with anxiety F41.8
[2024-06-28 04:00] VITALS: BP 149/74; PULSE 86; RESP 18; TEMP 36.8; O2SAT 99
[2024-06-28 05:11] LABS: Basophils % 0.3 %; Eosinophils % 0.2 %; Hematocrit 39.3 % (36-47); Lymphocytes # 0.7 10^3/uL (0.8-4.8); Lymphocytes % 8.2 %; Mean Corpuscular HGB Conc 33.3 g/dL (30-55); Mean Corpuscular Hemoglobin 30.8 pg (27-33); Mean Corpuscular Volume 92.3 fl (85-98); Mean Platelet Volume 11.3 fL (7.4-10.4); Monocytes # 0.5 10^3/uL (0.2-0.9); Monocytes % 5.7 %; Neutrophils # 7.39 10^3/uL (1.8-7.7); Neutrophils % 85.4 %; Nucleated Red Blood Cells % 0 %; Platelet Count 218 10^3/cmm (157-399); Red Blood Count 4.26 10^6/uL (3.85-5.65); Red Cell Distribution Width 14.9 % (12.1-15.1); White Blood Count 8.66 10^3/uL (3.29-11.43)
[2024-06-28 05:33] LABS: Anion Gap 17.9 (5-19); Blood Urea Nitrogen 16 mg/dL (8-23); Calcium 8.2 mg/dL (8.5-10.5); Carbon Dioxide 22 mmol/L (22-29); Chloride 107 mmol/L (98-107); Glucose 97 mg/dL (65-115); Magnesium 1.8 mg/dL (1.7-2.3); Osmolality Calculated 297 mOsm/kg (285-295); Potassium 3.9 mmol/L (3.5-5.1); Sodium 143 mmol/L (136-145)
[2024-06-28 07:28] VITALS: BP 144/74; PULSE 75; RESP 17; TEMP 36.7; O2SAT 99
[2024-06-28] MEDS: sennosides-docusate Tablet 1 TAB PO (08:58)
[2024-06-28] MEDS: escitalopram 10 mg Tablet PO (08:59)
[2024-06-28] MEDS: lisinopril 10 mg Tablet PO (08:59)
--- NOTE | 2024-06-28 09:34 | P.PN_ITS ---
Subjective 2 Subjective: This morning patient is still adamant that she wants to go home and this will not work out stating that she has no money at all, her [id number] is at the bedside Patient is aware that she has a clot in her lung and her leg She was questioning how she developed that As per the [id number] she has not been leading sedentary lifestyle but stating that sometimes she would just lay in 1 position for quite some time Appreciate Dr. Mariano evaluation yesterday, he is stating that patient does not have good capacity to make decisions for herself Vitals/I&O/Wt Last Vital Signs Temp 98.0 F 06/28/24 07:28 Pulse 75 06/28/24 07:28 Resp 17 06/28/24 07:28 BP 144/74 06/28/24 07:28 Pulse Ox 99 06/28/24 07:28 O2 Del Method Room Air 06/28/24 07:28 06/27/24 06/28/24 06/28/24 22:59 06:59 14:59 Intake Total 120 / 120 1000 / 1000 Balance 120 / 120 1000 / 1000 Weight last 48 hrs Weight 42.048 kg Weight 42.326 kg Weight 58.967 kg Physical Exam 2 Narrative: Patient is adamant that she wants to go home She is pleasant during my evaluation GCS 15 No active focal deficits No significant swelling of lower extremities I do not see any sign of vascular compromise Abdomen soft No active focal deficit Signs of dehydration present Hypertensive Currently on room air No active chest pain S1, S2 Data 06/28/24 05:03 06/28/24 05:03 A&P Assessment and plan (1) Failure to thrive: (2) Altered mental status: (3) Generalized weakness: (4) DVT (deep venous thrombosis): (5) Pulmonary embolism: (6) Encounter for assessment of decision-making capacity: Plan Metabolic encephalopathy related to dehydration As per psych evaluation patient has no capacity to make decision for self Will let showcase trimmer know today G weakness Will look into options to see if we can help her out with SNF versus home health/in-home services She might appoint stepdaughter as a medical DPOA Full code Cardiac diet Acute DVT and PE: Currently on therapeutic Lovenox No active chest pain no signs of hemodynamic instability She will need Eliquis at discharge Okay to continue with physical therapy for assessment Continue lisinopril for hypertension Evidence to support bedrest after DVT has low evidence with certainty, I am okay allowing her to continue physical therapy for now Attestations 2 Medical Necessity Statement*: Continue medical management Diagnoses Failure to thrive Altered mental status R41.82 Generalized weakness R53.1 DVT (deep venous thrombosis) I82.409 Pulmonary embolism I26.99 Encounter for assessment of decision-making capacity Z00.8
[2024-06-28] MEDS: cyanocobalamin 1,000 mcg Tablet 1000 MCG PO (11:19)
[2024-06-28] MEDS: enoxaparin 40 mg/0.4 mL Syringe SUBCUT (11:42)
[2024-06-28 12:00] VITALS: BP 131/71; PULSE 99; RESP 17; TEMP 36.8; O2SAT 98
[2024-06-28 15:09] VITALS: BP 129/69; PULSE 84; RESP 16; TEMP 36.8; O2SAT 96
--- NOTE | 2024-06-28 15:41 | P.PN_ITS ---
Subjective 2 Subjective: No overnight events Vitals/I&O/Wt Last Vital Signs Temp 98.2 F 06/28/24 15:09 Pulse 84 06/28/24 15:09 Resp 16 06/28/24 15:09 BP 129/69 06/28/24 15:09 Pulse Ox 96 06/28/24 15:09 O2 Del Method Room Air 06/28/24 15:09 06/28/24 06/28/24 06/28/24 06:59 14:59 22:59 Intake Total 1240 / 1240 Balance 1240 / 1240 Weight last 48 hrs Weight 42.048 kg Weight 42.326 kg Weight 58.967 kg Physical Exam 2 Narrative: Pleasant cooperative Nonfocal neuroexam Laying supine No significant swelling of lower extremity Currently on room air No tachycardia No active chest pain or shortness of breath Abdomen soft Data 06/28/24 05:03 06/28/24 05:03 A&P Assessment and plan (1) Failure to thrive: (2) Altered mental status: (3) Generalized weakness: (4) DVT (deep venous thrombosis): (5) Pulmonary embolism: (6) Encounter for assessment of decision-making capacity: Plan Metabolic encephalopathy related to dehydration Patient back to baseline Can get confused intermittently, at this point she is doing fine Patient will need retirement placement G weakness SNF option Generalized weakness related to dehydration poor p.o. intake Full code Cardiac diet Acute DVT and PE: Currently on therapeutic Lovenox Awaiting placement No decision-making capacity I will switch her to Eliquis Low B12 continue p.o. regimen patient refused intramuscular supplementation Attestations 2 Medical Necessity Statement*: Continue medical management Diagnoses Failure to thrive Altered mental status R41.82 Generalized weakness R53.1 DVT (deep venous thrombosis) I82.409 Pulmonary embolism I26.99 Encounter for assessment of decision-making capacity Z00.8
[2024-06-28] MEDS: cefTRIAXone 1,000 mg SDV 1000 MG IVP (16:53)
[2024-06-28 20:00] VITALS: BP 109/68; PULSE 89; RESP 17; TEMP 37.1; O2SAT 97
[2024-06-28] MEDS: apixaban 5 mg Tablet 10 MG PO (20:50)
[2024-06-29] VITALS: BP 129/72; PULSE 89; RESP 17; TEMP 36.6; O2SAT 96
[2024-06-29 04:00] VITALS: BP 132/79; PULSE 92; RESP 17; TEMP 37; O2SAT 95
--- NOTE | 2024-06-29 04:52 | P.PN_ITS ---
Subjective 2 Subjective: No overnight events Vitals/I&O/Wt Last Vital Signs Temp 98.6 F 06/29/24 04:00 Pulse 92 06/29/24 04:00 Resp 17 06/29/24 04:00 BP 132/79 06/29/24 04:00 Pulse Ox 95 06/29/24 04:00 O2 Del Method Room Air 06/29/24 04:00 06/28/24 06/28/24 06/29/24 14:59 22:59 06:59 Intake Total 1240 / 1240 220 / 1460 Output Total 300 / 300 Balance 1240 / 1240 -80 / 1160 Weight last 48 hrs Weight 42.048 kg Weight 42.326 kg Weight 58.967 kg Physical Exam 2 Narrative: pleasant cooperative Nonfocal neuroexam Laying supine No significant swelling of lower extremity Currently on room air No tachycardia No active chest pain or shortness of breath Abdomen soft Data 06/28/24 05:03 06/28/24 05:03 A&P Assessment and plan (1) DVT (deep venous thrombosis): (2) Pulmonary embolism: (3) Failure to thrive: (4) Altered mental status: (5) Generalized weakness: (6) Encounter for assessment of decision-making capacity: Plan Metabolic encephalopathy related to dehydration Patient back to baseline Can get confused intermittently, at this point she is doing fine Patient will need shelter placement G weakness SNF option Generalized weakness related to dehydration poor p.o. intake Full code Cardiac diet Acute DVT and PE: Currently on therapeutic Lovenox Awaiting placement No decision-making capacity I will switch her to Eliquis Low B12 continue p.o. regimen patient refused intramuscular supplementation Attestations 2 Medical Necessity Statement*: snf Diagnoses DVT (deep venous thrombosis) I82.409 Pulmonary embolism I26.99 Failure to thrive Altered mental status R41.82 Generalized weakness R53.1 Encounter for assessment of decision-making capacity Z00.8
[2024-06-29 05:52] LABS: Basophils % 0.5 %; Eosinophils # 0.1 10^3/uL (0.0-0.8); Eosinophils % 1.5 %; Hematocrit 43.5 % (36-47); Lymphocytes # 0.9 10^3/uL (0.8-4.8); Lymphocytes % 9.8 %; Mean Corpuscular HGB Conc 33.3 g/dL (30-55); Mean Corpuscular Hemoglobin 30.5 pg (27-33); Mean Corpuscular Volume 91.4 fl (85-98); Mean Platelet Volume 11.9 fL (7.4-10.4); Monocytes # 0.7 10^3/uL (0.2-0.9); Monocytes % 7.5 %; Neutrophils # 6.95 10^3/uL (1.8-7.7); Neutrophils % 80.4 %; Nucleated Red Blood Cells % 0 %; Platelet Count 253 10^3/cmm (157-399); Red Blood Count 4.76 10^6/uL (3.85-5.65); Red Cell Distribution Width 14.8 % (12.1-15.1); White Blood Count 8.65 10^3/uL (3.29-11.43)
[2024-06-29 06:14] LABS: Blood Urea Nitrogen 10 mg/dL (8-23); Calcium 8.9 mg/dL (8.5-10.5); Carbon Dioxide 25 mmol/L (22-29); Chloride 105 mmol/L (98-107); Glucose 105 mg/dL (65-115); Osmolality Calculated 295 mOsm/kg (285-295); Sodium 143 mmol/L (136-145)
[2024-06-29 08:00] VITALS: BP 119/65; PULSE 88; RESP 17; TEMP 36.5; O2SAT 97
[2024-06-29] MEDS: sennosides-docusate Tablet 1 TAB PO (09:09)
[2024-06-29] MEDS: apixaban 5 mg Tablet 10 MG PO ×2 (09:09→20:26)
[2024-06-29] MEDS: lisinopril 10 mg Tablet PO (09:10)
[2024-06-29] MEDS: cyanocobalamin 1,000 mcg Tablet 1000 MCG PO (09:10)
[2024-06-29] MEDS: escitalopram 10 mg Tablet PO (09:10)
[2024-06-29 11:40] VITALS: BP 148/91; PULSE 91; TEMP 36.4; O2SAT 95
--- NOTE | 2024-06-29 15:42 | MRR_ITS ---
PROCEDURE INFORMATION: Exam: MR Head Without Contrast Exam date and time: 06/29/2024 6:19 PM Age: 74 years old Clinical indication: Altered mental status/memory loss and speech disturbance; Dysphasia TECHNIQUE: Imaging protocol: Magnetic resonance imaging of the head without contrast. COMPARISON: CT head wo con* [id number] 06/27/2024 12:34 PM FINDINGS: Brain: No evidence of restricted diffusion to suggest acute ischemia. Multiple foci of hyperintense T2 signal are seen involving the periventricular deep white matter. Although these are nonspecific findings, they most likely represent chronic microvascular ischemic changes. No midline shift. No sulcal effacement. Normal roland-white matter differentiation. There is mild cerebral volume loss with associated mild prominence of the CSF spaces. No evidence of acute intracranial hemorrhage. No extra-axial fluid collection. No intracranial mass or mass effect. Cerebral ventricles: The ventricles appear minimally enlarged, in proportion to the mild parenchymal volume loss. Bones: Unremarkable. Paranasal sinuses: Minimal mucosal sinus thickening in the left maxillary and left ethmoid air cells. Mastoid air cells: Visualized mastoid air cells are clear. Orbital cavities: Unremarkable. Soft tissues: The visualized superficial soft tissues have a normal appearance. MR/MR head wo con* [id number] IMPRESSION: 1. No evidence of restricted diffusion to suggest acute ischemia. No acute intracranial pathology is seen. 2. Chronic senescent changes as above. 3. Scattered paranasal sinus mucosal disease.
[2024-06-29] MEDS: OLANZapine 5 mg TABLET 2.5 MG PO (16:20)
--- NOTE | 2024-06-29 17:10 | PM.MISC ---
Miscellaneous Note Note: Family reports patient is more confused since her last 1 month. She is quite confused late this morning. Urinary retention ruled out. Bladder scan showed 0 postvoid residual volume. Placed on Zyprexa 2.5 twice daily. Continue ceftriaxone for UTI. Check urine culture Check MRI head without contrast Discussed above with family at bedside.
--- NOTE | 2024-06-29 18:34 | PC.NURSE ---
When attempting to give IVP antibiotic, the pt became aggressive and aggitated. This nurse attempted to scan ID bracelet and pt began yelling and swinging arms. Nurse left room and came back a few moments later, to which the pt continued to resist.
[2024-06-29 20:00] VITALS: BP 122/72; PULSE 75; RESP 16; TEMP 36.8; O2SAT 97
[2024-06-30] VITALS: BP 137/63; PULSE 85; RESP 19; TEMP 36.5; O2SAT 97
[2024-06-30] MEDS: OLANZapine 5 mg TABLET 2.5 MG PO ×2 (03:44→15:52)
[2024-06-30 04:00] VITALS: BP 122/74; PULSE 88; RESP 19; TEMP 36.8; O2SAT 96
[2024-06-30 06:52] LABS: Basophils % 0.3 %; Eosinophils # 0.1 10^3/uL (0.0-0.8); Eosinophils % 1.8 %; Hematocrit 40.9 % (36-47); Lymphocytes # 0.9 10^3/uL (0.8-4.8); Lymphocytes % 12.6 %; Mean Corpuscular HGB Conc 33.7 g/dL (30-55); Mean Corpuscular Hemoglobin 31.2 pg (27-33); Mean Corpuscular Volume 92.3 fl (85-98); Mean Platelet Volume 11.6 fL (7.4-10.4); Monocytes # 0.6 10^3/uL (0.2-0.9); Monocytes % 8.6 %; Neutrophils # 5.59 10^3/uL (1.8-7.7); Neutrophils % 76.2 %; Nucleated Red Blood Cells % 0 %; Platelet Count 255 10^3/cmm (157-399); Red Blood Count 4.43 10^6/uL (3.85-5.65); Red Cell Distribution Width 14.7 % (12.1-15.1); White Blood Count 7.33 10^3/uL (3.29-11.43)
[2024-06-30 07:16] LABS: Anion Gap 12.3 (5-19); Blood Urea Nitrogen 7 mg/dL (8-23); Calcium 8.2 mg/dL (8.5-10.5); Carbon Dioxide 26 mmol/L (22-29); Chloride 104 mmol/L (98-107); Creatinine Clr Calc Pharmacy 44.1969; Glucose 99 mg/dL (65-115); Osmolality Calculated 286 mOsm/kg (285-295); Potassium 3.3 mmol/L (3.5-5.1); Sodium 139 mmol/L (136-145)
[2024-06-30 08:00] VITALS: BP 141/78; PULSE 89; RESP 18; TEMP 36.6; O2SAT 95
[2024-06-30] MEDS: apixaban 5 mg Tablet 10 MG PO ×2 (09:00→21:04)
[2024-06-30] MEDS: sennosides-docusate Tablet 1 TAB PO (09:00)
[2024-06-30] MEDS: escitalopram 10 mg Tablet PO (09:00)
[2024-06-30] MEDS: lisinopril 10 mg Tablet PO (09:01)
[2024-06-30] MEDS: cyanocobalamin 1,000 mcg/mL SDV 1000 MCG IM (09:01)
--- NOTE | 2024-06-30 10:09 | P.PN_ITS ---
Subjective 2 Subjective: Had MRI negative for stroke Likely be related cognitive impairment Patient keeps repeating same words however in between she is able to talk with normal sentences No fever Patient is getting bowel regimen Have requested nurse to do another bladder scan and give her senna S today I have requested her to change to intramuscular B12 injection Vitals/I&O/Wt Last Vital Signs Temp 97.8 F 06/30/24 08:00 Pulse 89 06/30/24 08:00 Resp 18 06/30/24 08:00 BP 141/78 06/30/24 08:00 Pulse Ox 95 06/30/24 08:00 O2 Del Method Room Air 06/30/24 08:00 06/29/24 06/30/24 06/30/24 22:59 06:59 14:59 Intake Total 60 / 60 120 / 120 Balance 60 / 60 120 / 120 Weight last 48 hrs Weight 44.044 kg Weight 45.087 kg Physical Exam 2 Narrative: Patient seems to have pressured speech In between she is able to communicate and talk normally Hemodynamically stable awake and alert GCS 15 Oriented to herself Anxious appearing [id number] at the bedside Dehydrated Currently on room air S1, S2 Data 06/30/24 06:16 06/30/24 06:16 A&P Assessment and plan (1) DVT (deep venous thrombosis): (2) Pulmonary embolism: (3) Failure to thrive: (4) Altered mental status: (5) Generalized weakness: (6) Encounter for assessment of decision-making capacity: Plan Metabolic encephalopathy Pressured speech Anxious appearing [place] related cognitive impairment and confusion No stroke on the MRI G weakness SNF option Generalized weakness related to dehydration poor p.o. intake Patient is a vegetarian with low B12, switch to intramuscular B12 injection Acute DVT and PE: Currently on therapeutic Lovenox Awaiting placement No decision-making capacity I will switch her to Eliquis Attestrose 2 Medical Necessity Statement*: Continue medical management Diagnoses DVT (deep venous thrombosis) I82.409 Pulmonary embolism I26.99 Failure to thrive Altered mental status R41.82 Generalized weakness R53.1 Encounter for assessment of decision-making capacity Z00.8
[2024-06-30 11:39] VITALS: BP 144/82; PULSE 78; RESP 17; TEMP 36.5; O2SAT 97
[2024-06-30 15:49] VITALS: BP 121/67; PULSE 79; RESP 17; TEMP 36.7; O2SAT 97
[2024-06-30 20:00] VITALS: BP 117/51; PULSE 81; RESP 15; TEMP 36.4; O2SAT 95
[2024-07-01] VITALS: BP 103/56; PULSE 83; RESP 17; TEMP 36.6; O2SAT 95
[2024-07-01 04:00] VITALS: BP 119/59; PULSE 86; RESP 18; TEMP 36.9; O2SAT 97
[2024-07-01 08:00] VITALS: BP 126/76; PULSE 86; RESP 20; TEMP 36.6; O2SAT 96
[2024-07-01] MEDS: escitalopram 10 mg Tablet PO (08:43)
[2024-07-01] MEDS: apixaban 5 mg Tablet 10 MG PO ×2 (08:43→21:19)
[2024-07-01] MEDS: OLANZapine 5 mg TABLET 2.5 MG PO ×2 (08:43→21:19)
[2024-07-01] MEDS: cyanocobalamin 1,000 mcg/mL SDV 1000 MCG IM (08:43)
[2024-07-01] MEDS: sennosides-docusate Tablet 1 TAB PO (08:43)
[2024-07-01] MEDS: lisinopril 10 mg Tablet PO (08:46)
--- NOTE | 2024-07-01 10:13 | PC.SOCIAL ---
IMM Update pg 2 of IMM Updated and reviewed w/ patient and her stepdaughter. Copy provided and copy dated, initialed and placed in chart.
--- NOTE | 2024-07-01 10:44 | PC.CHAP ---
Pastoral Care Encounter/Spiritual Assessment Type of Contact [] Declined rehab specialist visit [] Patient/Family/Request visit [] Outpatient visit [] Follow-up visit [] Physician referral [] Code/Alert [x] Routine visit [] Staff referral [] Actively dying [] Patient sleeping [x] Family support [] [] Out of room [] Palliative care [] [] Receiving care in room [] Pre-surgical visit [] Trauma [] Long length of stay [] ICU visit [] Other: Relational/Emotional Strength [] Patient feels connected with others/family/visitors/staff [] Distress [] Loneliness/isolation [] Abandonment Spirituality of Patient [x] Person of Tran [] Attends Religious of their Tran [x] Believes in Prayer [] Reads Bible or Quaker materials [] There are Spiritual issues to be addressed Piano Case Maker Interventions [x] Prayer [x] Active listening [] Non-anxious presence [] Spiritual/emotional support [] Crisis/trauma care [] Spiritual counseling [] Bereavement support [] Provided bereavement packet [x] Provided Bible/devotional materials [] Provided toy/stuffed animal, coloring book to patient or family member [] Provided Communion [] Anointing/[place] [] Salvation [x] Completed spiritual assessment [] Other: Impact on Illness or Injury [] Angry [] Fearful [] Anxious [] Often cries [] Exhaustion [] Unable to work [] Unable to attend methodist [] Unable to walk/stand [] Unable to read [] Unable to drive [] Unable to eat/drink [] Unable to sleep [] Unable to be with family [] Patient intubated [] Other: Summary Time spent with patient 5 min
--- NOTE | 2024-07-01 11:25 | P.PN_ITS ---
Subjective 2 Subjective: We had to hold her arm to give intramuscular B12 injection Patient still stuttering, repetitive words However she would say full sentences without any difficulty in between, she is able to tell me that she does not want to stay in the hospital and does not want [facility], stepdaughter is at the bedside, is also at bedside, caseworker protective services is aware, is wanting to point his daughter as medical DPOA MRI did not show any stroke, continue B12 supplements I have asked stepdaughter to read up on B12 related cognitive impairment As per the stepdaughter patient is eating slightly more in the hospital as compared to home Vitals/I&O/Wt Last Vital Signs Temp 97.9 F 07/01/24 08:00 Pulse 86 07/01/24 08:00 Resp 20 H 07/01/24 08:00 BP 126/76 07/01/24 08:00 Pulse Ox 96 07/01/24 08:00 O2 Del Method Room Air 07/01/24 08:00 06/30/24 07/01/24 07/01/24 22:59 06:59 14:59 Intake Total 120 / 360 120 / 480 120 / 120 Output Total 300 / 300 Balance 120 / 360 -180 / 180 120 / 120 Weight last 48 hrs Weight 44.18 kg Weight 44.044 kg Physical Exam 2 Narrative: Patient does not have any focal deficits Repetitive words Anxious appearing Anxiety S1, S2 Hemodynamic stable currently on room air Dehydrated Data 06/30/24 06:16 06/30/24 06:16 A&P Assessment and plan (1) DVT (deep venous thrombosis): (2) Pulmonary embolism: (3) Failure to thrive: (4) Altered mental status: (5) Generalized weakness: (6) Encounter for assessment of decision-making capacity: Plan Metabolic encephalopathy Pressured speech Anxious appearing B12 deficiency related cognitive impairment and confusion No stroke on the MRI For DVT continue 10 days of therapeutic Eliquis dose then switch to 5 mg twice daily MRI did not show any stroke Continue lisinopril for hypertension For anxiety we are using antipsychotic every 12 hours and Ativan on as-needed basis Full code Respiratory and cardiac diet Awaiting [facility] placement, stepdaughter appointed as medical DPOA by the , caseworker protective services to help with the paperwork Attestations 2 Medical Necessity Statement*: Awaiting placement Diagnoses DVT (deep venous thrombosis) I82.409 Pulmonary embolism I26.99 Failure to thrive Altered mental status R41.82 Generalized weakness R53.1 Encounter for assessment of decision-making capacity Z00.8
[2024-07-01 11:55] VITALS: BP 101/66; PULSE 88; RESP 17; O2SAT 93
[2024-07-01 15:40] VITALS: BP 130/72; PULSE 102; RESP 18; TEMP 36.5; O2SAT 97
--- NOTE | 2024-07-01 19:53 | P.NPUPN_ITS ---
Subjective NPU 2 Subjective: 74 year-old female with admission due to general fatigue and inability to eat or care for herself. The patient had reported that she had nowhere to go at this time. She continued to state that she has difficulties with her memory. The patient reported that she has nowhere to go and states that she cannot return to her previous home as she had stated that she had not been able to care for her home. She had described her home life as a wreck . Mental Status Exam 2 MSE Comments: This is an underweight versus cachectic white female in hospital gownwith limited grooming and eye contact. Occasionally hiding under covers. No abnormal movements except for psychomotor retardation. She was minimally cooperative with exam in moderate distress. Speech was decreased rate and decreased in volume. Mood was described as not good. affect was odd. Thought process linear. Thought content: Patient denied current suicidal or homicidal ideation, there were no delusions illicited. She denied auditory or visual hallucinations reported and she does not appear to be attending to internal stimuli. Attention and concentration were limited and memory was mostly unreliable but none were formally tested. She is alert and oriented x person. Insight, judgment and impulse control are impaired. Vitals/I&O/Wt Last Vital Signs Temp 97.7 F 07/01/24 15:40 Pulse 102 H 07/01/24 15:40 Resp 18 07/01/24 15:40 BP 130/72 07/01/24 15:40 Pulse Ox 97 07/01/24 15:40 O2 Del Method Room Air 07/01/24 15:40 07/01/24 07/01/24 07/01/24 06:59 14:59 22:59 Intake Total 120 / 480 170 / 170 Output Total 300 / 300 Balance -180 / 180 170 / 170 Weight last 48 hrs Weight 44.18 kg Weight 44.044 kg Data NPU 06/30/24 06:16 06/30/24 06:16 A&P Assessment and plan (1) DVT (deep venous thrombosis): (2) Pulmonary embolism: (3) Failure to thrive: (4) Altered mental status: (5) Encounter for assessment of decision-making capacity: (6) Depression with anxiety: Plan This is a 74-year-old white female with limited reported history of mental health treatment who presents quite distressed and not answering many questions seeming confused at times. 1. Continue current medication. 2. Patient lacks decision-making capacity. Either due to memory difficulties or mental health she is incapable of articulating her desires, identifying risks, benefits and alternative living situation, expressing comprehension of the different alternatives to treatment plan or even articulating with the plan for treatment is around. 3. Obtain collateral information to understand mental health background. 4. Will continue to follow. Use low dose zyprexa 2.5mg for agitation prn. Attestations NPU 2 Medical Necessity Statement*: N/A. Please see primary team note for medical necessity. Coding Level of Care Code Acute Code for Chg Fwd Diagnoses DVT (deep venous thrombosis) I82.409 Pulmonary embolism I26.99 Failure to thrive Altered mental status R41.82 Encounter for assessment of decision-making capacity Z00.8 Depression with anxiety F41.8
[2024-07-01 20:00] VITALS: BP 124/71; PULSE 97; RESP 17; TEMP 36.6; O2SAT 97
[2024-07-02] VITALS: BP 132/66; PULSE 97; RESP 16; TEMP 36.8; O2SAT 96
[2024-07-02 04:00] VITALS: BP 119/78; PULSE 92; RESP 13; TEMP 36.7; O2SAT 95
[2024-07-02] MEDS: levoFLOXacin 750 mg Tablet PO (04:47)
[2024-07-02] MEDS: LORazepam 0.5 mg Tablet PO (05:21)
--- NOTE | 2024-07-02 06:38 | PC.NURSE ---
PRN Ativan given and phlebotimist asked by myself to come back at another time due to patient having some agitation.
[2024-07-02 08:00] VITALS: BP 137/76; PULSE 102; RESP 17; TEMP 36.7; O2SAT 95
[2024-07-02] MEDS: sennosides-docusate Tablet 1 TAB PO (08:57)
[2024-07-02] MEDS: apixaban 5 mg Tablet 10 MG PO ×2 (08:57→21:56)
[2024-07-02] MEDS: lisinopril 10 mg Tablet PO (08:57)
[2024-07-02] MEDS: escitalopram 10 mg Tablet PO (08:58)
[2024-07-02] MEDS: cyanocobalamin 1,000 mcg/mL SDV 1000 MCG IM (08:58)
[2024-07-02] MEDS: OLANZapine 5 mg TABLET 2.5 MG PO ×2 (08:58→21:55)
[2024-07-02 09:07] LABS: Anion Gap 13.6 (5-19); Blood Urea Nitrogen 14 mg/dL (8-23); Calcium 8.5 mg/dL (8.5-10.5); Carbon Dioxide 27 mmol/L (22-29); Chloride 107 mmol/L (98-107); Creatinine Clr Calc Pharmacy 43.4684; Glucose 113 mg/dL (65-115); Osmolality Calculated 299 mOsm/kg (285-295); Potassium 3.6 mmol/L (3.5-5.1); Sodium 144 mmol/L (136-145)
[2024-07-02] MEDS: lactulose oral liq 20 gm/30 mL UDC 10 GM PO (09:34)
--- NOTE | 2024-07-02 11:43 | P.PN_ITS ---
Subjective 2 Subjective: No BM reported Given 1 dose of lactulose Patient is much more awake and alert able to communicate clearly Less anxious as per the stepdaughter at the bedside Vitals/I&O/Wt Last Vital Signs Temp 98.0 F 07/02/24 08:00 Pulse 102 H 07/02/24 08:00 Resp 17 07/02/24 08:00 BP 137/76 07/02/24 08:00 Pulse Ox 95 07/02/24 08:00 O2 Del Method Room Air 07/02/24 08:00 07/01/24 07/02/24 07/02/24 22:59 06:59 14:59 Intake Total 50 / 220 240 / 240 Output Total 100 / 100 Balance -50 / 120 240 / 240 Weight last 48 hrs Weight 43.318 kg Weight 44.18 kg Physical Exam 2 Narrative: Patient is awake and alert No focal deficit Signs of dehydration improving Speech is much better today as compared to just S1, S2 Normotensive Currently on room air Pressured speech has improved Data 06/30/24 06:16 07/02/24 08:30 Micro: Microbiology 06/30/24 23:45 Urine Culture - Final Urine,Voided A&P Assessment and plan (1) Depression with anxiety: (2) DVT (deep venous thrombosis): (3) Pulmonary embolism: (4) Failure to thrive: (5) Altered mental status: (6) Generalized weakness: (7) Encounter for assessment of decision-making capacity: (8) B12 deficiency: Plan Constipation: Given lactulose Metabolic encephalopathy, fluctuant Mentation is better today Speech is less pressured and slurred Discontinue levofloxacin Continue B12 intramuscular injection Awaiting level 2 authorization for prison placement We have started guardianship paperwork, has been appointed his daughter which is the stepdaughter of Monica as medical DPOA DVT prophylaxis 10 mg twice daily until 07/05 then she will get 5 mg twice daily Hypertensive well-managed with lisinopril Attestations 2 Medical Necessity Statement*: Continue medical management Diagnoses Depression with anxiety F41.8 DVT (deep venous thrombosis) I82.409 Pulmonary embolism I26.99 Failure to thrive Altered mental status R41.82 Generalized weakness R53.1 Encounter for assessment of decision-making capacity Z00.8 B12 deficiency E53.8
[2024-07-02 11:56] VITALS: BP 95/65; PULSE 104; RESP 16; TEMP 36.7; O2SAT 95
[2024-07-02 15:41] VITALS: BP 114/66; PULSE 93; RESP 16; TEMP 36.7; O2SAT 95
[2024-07-02 20:00] VITALS: BP 116/74; PULSE 91; RESP 17; TEMP 37.1; O2SAT 96
[2024-07-03] VITALS: BP 120/71; PULSE 91; RESP 17; TEMP 36.8; O2SAT 96
[2024-07-03 04:00] VITALS: BP 125/78; PULSE 88; RESP 18; TEMP 36.8; O2SAT 95
--- NOTE | 2024-07-03 06:36 | PC.SOCIAL ---
IMM Update pg 2 of IMM not updated @ this time as guardianship and level 2 are pending and patient is not anticipated to DC in the next 24-48 hours. Copy in chart dated, initialed.
[2024-07-03] MEDS: apixaban 5 mg Tablet 10 MG PO ×2 (07:45→20:56)
[2024-07-03] MEDS: sennosides-docusate Tablet 1 TAB PO (07:46)
[2024-07-03] MEDS: lisinopril 10 mg Tablet PO (07:46)
[2024-07-03] MEDS: escitalopram 10 mg Tablet PO (07:46)
[2024-07-03] MEDS: cyanocobalamin 1,000 mcg/mL SDV 1000 MCG IM (07:46)
[2024-07-03] MEDS: OLANZapine 5 mg TABLET 2.5 MG PO ×2 (07:49→20:56)
[2024-07-03 08:00] VITALS: BP 142/88; PULSE 87; RESP 17; TEMP 36.8; O2SAT 96
--- NOTE | 2024-07-03 09:41 | PC.CHAP ---
Pastoral Care Encounter/Spiritual Assessment Type of Contact [] Declined track announcer visit [] Patient/Family/Request visit [] Outpatient visit [] Follow-up visit [] Physician referral [] Code/Alert [x] Routine visit [] Staff referral [] Actively dying [] Patient sleeping [x] Family support [] [] Out of room [] Palliative care [] [] Receiving care in room [] Pre-surgical visit [] Trauma [] Long length of stay [] ICU visit [] Other: Relational/Emotional Strength [] Patient feels connected with others/family/visitors/staff [x] Distress [x] Loneliness/isolation [] Abandonment Spirituality of Patient [x] Person of Tran [] Attends Hinduism of their Tran [x] Believes in Prayer [] Reads Bible or Islam materials [] There are Spiritual issues to be addressed Dinkey Operator Interventions [x] Prayer [x] Active listening [x] Non-anxious presence [x] Spiritual/emotional support [] Crisis/trauma care [] Spiritual counseling [] Bereavement support [] Provided bereavement packet [] Provided Bible/devotional materials [] Provided toy/stuffed animal, coloring book to patient or family member [] Provided Communion [] Anointing/[place] [] Salvation [x] Completed spiritual assessment [] Other: Impact on Illness or Injury [] Angry [] Fearful [] Anxious [] Often cries [] Exhaustion [] Unable to work [] Unable to attend orthodox [] Unable to walk/stand [] Unable to read [] Unable to drive [] Unable to eat/drink [] Unable to sleep [] Unable to be with family [] Patient intubated [] Other: Summary Time spent with patient 5 min
[2024-07-03 11:33] VITALS: BP 93/60; PULSE 102; RESP 15; TEMP 36.6; O2SAT 97
--- NOTE | 2024-07-03 13:54 | P.PN_ITS ---
Subjective 2 Subjective: seen today aox2 feeling better Vitals/I&O/Wt Last Vital Signs Temp 97.9 F 07/03/24 11:33 Pulse 102 H 07/03/24 11:33 Resp 15 07/03/24 11:33 BP 93/60 07/03/24 11:33 Pulse Ox 97 07/03/24 11:33 O2 Del Method Room Air 07/03/24 11:33 07/02/24 07/03/24 07/03/24 22:59 06:59 14:59 Intake Total 440 / 1040 120 / 120 Balance 440 / 1040 120 / 120 Weight last 48 hrs Weight 43.318 kg Weight 43.318 kg Physical Exam 2 Narrative: Patient is awake and alert No focal deficit Signs of dehydration improving much more coherent today S1, S2 Normotensive Currently on room air Pressured speech has improved Data 06/30/24 06:16 07/02/24 08:30 Micro: Microbiology 06/30/24 23:45 Urine Culture - Final Urine,Voided A&P Assessment and plan (1) Depression with anxiety: (2) DVT (deep venous thrombosis): (3) Pulmonary embolism: (4) Failure to thrive: (5) Altered mental status: (6) Generalized weakness: (7) Encounter for assessment of decision-making capacity: (8) B12 deficiency: Plan Constipation: Given lactulose Metabolic encephalopathy, fluctuant Mentation is better today speech improved today Discontinue levofloxacin Continue B12 intramuscular injection Awaiting level 2 authorization for residential placement We have started guardianship paperwork, has been appointed his daughter which is the stepdaughter of Monica as medical DPOA DVT prophylaxis 10 mg twice daily until 07/05 then she will get 5 mg twice daily Hypertensive well-managed with lisinopril Attestations 2 Medical Necessity Statement*: Continue medical management Diagnoses Depression with anxiety F41.8 DVT (deep venous thrombosis) I82.409 Pulmonary embolism I26.99 Failure to thrive Altered mental status R41.82 Generalized weakness R53.1 Encounter for assessment of decision-making capacity Z00.8 B12 deficiency E53.8
[2024-07-03 15:35] VITALS: BP 130/73; PULSE 80; RESP 16; TEMP 36.6; O2SAT 98
[2024-07-03 20:00] VITALS: BP 107/64; PULSE 91; RESP 16; TEMP 36.7; O2SAT 98
--- NOTE | 2024-07-03 21:39 | PC.NURSE ---
patient assessment done at this time. patient unable to communicate put together words or statements that make sense. patient alert but not orientated. patient took pills in pudding with no complications. patient not combative just confused.
[2024-07-04] VITALS: BP 95/59; PULSE 81; RESP 16; TEMP 36.4; O2SAT 98
[2024-07-04 04:00] VITALS: BP 98/72; PULSE 92; RESP 19; TEMP 36.9; O2SAT 98
[2024-07-04 08:00] VITALS: BP 111/62; PULSE 73; RESP 16; TEMP 36.9; O2SAT 97
[2024-07-04] MEDS: OLANZapine 5 mg TABLET 2.5 MG PO ×2 (10:54→20:03)
[2024-07-04] MEDS: escitalopram 10 mg Tablet PO (10:54)
[2024-07-04] MEDS: lisinopril 10 mg Tablet PO (10:55)
[2024-07-04] MEDS: cyanocobalamin 1,000 mcg/mL SDV 1000 MCG IM (10:55)
[2024-07-04] MEDS: sennosides-docusate Tablet 1 TAB PO (10:55)
[2024-07-04] MEDS: apixaban 5 mg Tablet 10 MG PO ×2 (10:57→20:03)
[2024-07-04 11:50] VITALS: BP 123/73; PULSE 96; RESP 14; TEMP 36.4; O2SAT 97
--- NOTE | 2024-07-04 12:55 | P.PN_ITS ---
Subjective 2 Subjective: Patient seen today. Daughter at bedside. Nursing staff did report that patient was starting to stutter again. When I saw patient she was talking normally however later during the conversation started stuttering. Vitals/I&O/Wt Last Vital Signs Temp 97.6 F 07/04/24 11:50 Pulse 96 07/04/24 11:50 Resp 14 07/04/24 11:50 BP 123/73 07/04/24 11:50 Pulse Ox 97 07/04/24 11:50 O2 Del Method Room Air 07/04/24 11:50 Weight last 48 hrs Weight 42.808 kg Weight 43.318 kg Physical Exam 2 Narrative: Patient is awake and alert No focal deficit Patient is alert oriented x 2 at this time. Daughter at bedside. S1, S2 Normotensive Currently on room air Data 06/30/24 06:16 07/02/24 08:30 A&P Assessment and plan (1) Depression with anxiety: (2) DVT (deep venous thrombosis): (3) Pulmonary embolism: (4) Failure to thrive: (5) Altered mental status: (6) Generalized weakness: (7) Encounter for assessment of decision-making capacity: (8) B12 deficiency: Plan Constipation: Continue docusate senna 1 tablet daily. Last bowel movement was yesterday 07/04. Metabolic encephalopathy, fluctuant however improved today. She is alert and oriented x 2. Speech improved. However does stutter in between. Discontinue levofloxacin marking the completion of UTI course. Continue B12 intramuscular injection. 5 doses total administered. Will stop and switch to 1000 mcg oral daily. Awaiting level 2 authorization for [facility] We have started guardianship paperwork, has been appointed his daughter which is the stepdaughter of Monica as medical DPOA DVT prophylaxis 10 mg twice daily until 07/05 then she will get 5 mg twice daily Hypertensive well-managed with lisinopril Continue Zyprexa 2.5 twice daily. Attestations 2 Medical Necessity Statement*: Awaiting placement. Diagnoses Depression with anxiety F41.8 DVT (deep venous thrombosis) I82.409 Pulmonary embolism I26.99 Failure to thrive Altered mental status R41.82 Generalized weakness R53.1 Encounter for assessment of decision-making capacity Z00.8 B12 deficiency E53.8
[2024-07-04 16:00] VITALS: BP 121/83; PULSE 81; RESP 12; TEMP 36.3; O2SAT 96
[2024-07-04 20:00] VITALS: BP 109/66; PULSE 80; RESP 17; TEMP 36.5; O2SAT 97
[2024-07-05] VITALS (7 sets, daily range): BP systolic 106–136; BP diastolic 66–85; PULSE 74–88; RESP 15–19; TEMP 36.4–36.8; O2SAT 96–98
[2024-07-05] MEDS: LORazepam 0.5 mg Tablet PO (08:48)
[2024-07-05] MEDS: apixaban 5 mg Tablet 10 MG PO (08:48)
[2024-07-05] MEDS: OLANZapine 5 mg TABLET 2.5 MG PO ×2 (08:48→20:33)
[2024-07-05] MEDS: lisinopril 10 mg Tablet PO (08:49)
[2024-07-05] MEDS: escitalopram 10 mg Tablet PO (08:49)
[2024-07-05] MEDS: cyanocobalamin 1,000 mcg Tablet 1000 MCG PO (08:50)
[2024-07-05] MEDS: sennosides-docusate Tablet 1 TAB PO (08:50)
--- NOTE | 2024-07-05 10:12 | PC.SOCIAL ---
IMM Update pg 2 of IMM not updated w/ patient as patient's level 2 and guardianship are pending and patient is not anticipated to DC in 48-72 hours.
--- NOTE | 2024-07-05 14:11 | P.PN_ITS ---
Subjective 2 Subjective: Patient seen today. No acute events overnight. Vitals/I&O/Wt Last Vital Signs Temp 97.5 F L 07/05/24 11:20 Pulse 82 07/05/24 11:20 Resp 16 07/05/24 11:20 BP 118/66 07/05/24 11:20 Pulse Ox 98 07/05/24 11:20 O2 Del Method Room Air 07/05/24 11:20 07/04/24 07/05/24 07/05/24 22:59 06:59 14:59 Intake Total 120 / 120 120 / 120 Output Total 200 / 400 Balance -80 / -280 120 / 120 Weight last 48 hrs Weight 42.439 kg Weight 42.808 kg Physical Exam 2 Narrative: Patient is awake and alert No focal deficit Patient is alert oriented x 1 today. S1, S2 Normotensive Currently on room air Data 06/30/24 06:16 07/02/24 08:30 A&P Assessment and plan (1) Depression with anxiety: (2) DVT (deep venous thrombosis): (3) Pulmonary embolism: (4) Failure to thrive: (5) Altered mental status: (6) Generalized weakness: (7) Encounter for assessment of decision-making capacity: (8) B12 deficiency: Plan Constipation: Continue docusate senna 1 tablet daily. Last bowel movement was 07/04. Metabolic encephalopathy, fluctuant however improved today. She is alert and oriented x 1. Speech improved. However does stutter in between. Discontinue levofloxacin marking the completion of UTI course. Continue B12 intramuscular injection. 5 doses total administered. Continue B12 1000 mcg daily.. Awaiting level 2 authorization for care home placement We have started guardianship paperwork, has been appointed his daughter which is the stepdaughter of Monica as medical DPOA DVT prophylaxis 10 mg twice daily until 07/05 then she will get 5 mg twice daily Hypertensive well-managed with lisinopril Continue Zyprexa 2.5 twice daily. Attestations 2 Medical Necessity Statement*: Awaiting placement. Diagnoses Depression with anxiety F41.8 DVT (deep venous thrombosis) I82.409 Pulmonary embolism I26.99 Failure to thrive Altered mental status R41.82 Generalized weakness R53.1 Encounter for assessment of decision-making capacity Z00.8 B12 deficiency E53.8
[2024-07-06 03:47] VITALS: BP 111/73; PULSE 86; RESP 15; TEMP 36.6; O2SAT 97
[2024-07-06 08:00] VITALS: BP 142/82; PULSE 78; RESP 16; TEMP 36.8; O2SAT 98
[2024-07-06] MEDS: escitalopram 10 mg Tablet PO (09:08)
[2024-07-06] MEDS: lisinopril 10 mg Tablet PO (09:08)
[2024-07-06] MEDS: sennosides-docusate Tablet 1 TAB PO (09:08)
[2024-07-06] MEDS: OLANZapine 5 mg TABLET 2.5 MG PO ×2 (09:09→20:04)
[2024-07-06] MEDS: cyanocobalamin 1,000 mcg Tablet 1000 MCG PO (09:09)
--- NOTE | 2024-07-06 13:19 | P.PN_ITS ---
Subjective 2 Subjective: Patient seen today. No acute events overnight. Vitals/I&O/Wt Last Vital Signs Temp 98.3 F 07/06/24 08:00 Pulse 78 07/06/24 08:00 Resp 16 07/06/24 08:00 BP 142/82 07/06/24 08:00 Pulse Ox 98 07/06/24 08:00 O2 Del Method Room Air 07/06/24 08:00 07/05/24 07/06/24 07/06/24 22:59 06:59 14:59 Intake Total 50 / 170 Balance 50 / 170 Weight last 48 hrs Weight 42.048 kg Weight 42.439 kg Physical Exam 2 Narrative: Patient is awake and alert No focal deficit Patient is alert oriented x 1 today. S1, S2 Normotensive Currently on room air Data 06/30/24 06:16 07/02/24 08:30 A&P Assessment and plan (1) Depression with anxiety: (2) DVT (deep venous thrombosis): (3) Pulmonary embolism: (4) Failure to thrive: (5) Altered mental status: (6) Generalized weakness: (7) Encounter for assessment of decision-making capacity: (8) B12 deficiency: Plan Constipation: Continue docusate senna 1 tablet daily. Last bowel movement was 07/04. Metabolic encephalopathy, fluctuant however improved today. She is alert and oriented x 1. Speech improved. However does stutter in between. Discontinue levofloxacin marking the completion of UTI course. Continue B12 intramuscular injection. 5 doses total administered. Continue B12 1000 mcg daily.. Awaiting level 2 authorization for [facility] placement We have started guardianship paperwork, has been appointed his daughter which is the stepdaughter of Monica as medical DPOA DVT prophylaxis 10 mg twice daily until 07/05 then she will get 5 mg twice daily Hypertensive well-managed with lisinopril Continue Zyprexa 2.5 twice daily. Attestations 2 Medical Necessity Statement*: Awaiting placement. Coding Level of Care Code 74502 Diagnoses Depression with anxiety F41.8 DVT (deep venous thrombosis) I82.409 Pulmonary embolism I26.99 Failure to thrive Altered mental status R41.82 Generalized weakness R53.1 Encounter for assessment of decision-making capacity Z00.8 B12 deficiency E53.8
[2024-07-06 16:00] VITALS: BP 153/71; PULSE 65; RESP 16; O2SAT 93
--- NOTE | 2024-07-06 17:40 | PC.NURSE ---
pt refusing to drink or void. dr. velarde notfied, will straight cath.
[2024-07-06 20:00] VITALS: BP 114/67; PULSE 79; RESP 16; TEMP 36.5; O2SAT 96
[2024-07-06 23:49] VITALS: BP 117/80; PULSE 82; RESP 15; TEMP 36.7; O2SAT 97
[2024-07-07 00:30] LABS: Bilirubin Urine Negative (Negative); Blood Urine Negative (Negative); Glucose Urine UA Negative (Normal); Ketones Urine 1+ (Negative); Leukocyte Esterase Urine Trace (Negative); Nitrate Urine Negative (Negative); Protein Urine Trace (Negative); Specific Gravity, Urine 1.028 (1.005-1.030); Urine Appearance Clear (CLEAR); Urine Color Dark Yellow (Yellow); pH Urine 6.5 (5-7)
[2024-07-07 00:51] LABS: Add Urine Culture? No; Add Urine Microscopic? YES; Bacteria Urine TRACE /hpf; Mucus Urine 2+ /hpf; RBC Urine 0-4 /hpf (0-2); Squamous Epithelial Cell Urine 0-4 /hpf (0-5); WBC Urine 0-4 /hpf (0-5)
[2024-07-07] MEDS: sodium chloride 0.9% 1,000 ML 100 ML IV ×3 (01:28→19:56)
[2024-07-07] MEDS: haloperidol inj 5 mg/mL INJ 1 mL 2 MG IVP (02:14)
[2024-07-07 04:00] VITALS: BP 136/74; PULSE 75; RESP 15; TEMP 36.6; O2SAT 98
[2024-07-07 07:44] VITALS: BP 141/76; PULSE 85; RESP 18; TEMP 36.6; O2SAT 97
[2024-07-07] MEDS: OLANZapine 5 mg TABLET 2.5 MG PO ×2 (08:00→19:57)
[2024-07-07] MEDS: lisinopril 10 mg Tablet PO (08:00)
[2024-07-07] MEDS: sennosides-docusate Tablet 1 TAB PO (08:00)
[2024-07-07] MEDS: cyanocobalamin 1,000 mcg Tablet 1000 MCG PO (08:00)
[2024-07-07] MEDS: escitalopram 10 mg Tablet PO (08:00)
--- NOTE | 2024-07-07 08:18 | PC.NURSE ---
pt high fall risk, attempt to get out of bed and tangled up in scd cords. bed alarm turned on
[2024-07-07 12:00] VITALS: BP 164/80; PULSE 84; RESP 18; TEMP 36.3; O2SAT 97
--- NOTE | 2024-07-07 15:04 | P.PN_ITS ---
Subjective 2 Subjective: Patient having urinary retention. Retaining over 400 and bladder at times. She does not pee all day today. Straight cath was done in the evening. At this point in the morning she again is retaining. Will place a Silva at this time. Did start IV fluids as a fluid challenge. However is still having difficulty urination. ? Will stop IV fluids. And place Silva catheter. She is alert oriented x 2 this morning. Resting comfortably in bed. She does complain of suprapubic pain on and off however lately has not done so in the last 1 or 2 days. This may explain urinary retention related pain as well. Vitals/I&O/Wt Last Vital Signs Temp 97.3 F L 07/07/24 12:00 Pulse 84 07/07/24 12:00 Resp 18 07/07/24 12:00 BP 164/80 07/07/24 12:00 Pulse Ox 97 07/07/24 12:00 O2 Del Method Room Air 07/07/24 12:00 07/07/24 07/07/24 07/07/24 06:59 14:59 22:59 Intake Total 1050 / 1050 Output Total 400 / 400 Balance -400 / -400 1050 / 1050 Weight last 48 hrs Weight 42.275 kg Weight 42.048 kg Physical Exam 2 Narrative: Patient is awake and alert No focal deficit Patient is alert oriented x 2 today. S1, S2 Normotensive Currently on room air Urinary Catheter Management: Silva: Cath Placed During This Visit: yes Urinary Catheter Date of Insertion: 07/07/24 Urinary Catheter Time of Insertion: 14:30 Data 06/30/24 06:16 07/02/24 08:30 A&P Assessment and plan (1) Depression with anxiety: (2) DVT (deep venous thrombosis): (3) Pulmonary embolism: (4) Failure to thrive: (5) Altered mental status: (6) Generalized weakness: (7) Encounter for assessment of decision-making capacity: (8) B12 deficiency: Plan Constipation: Continue docusate senna 1 tablet daily. Last bowel movement was 07/04. Metabolic encephalopathy, fluctuant however improved today. She is alert and oriented x 1. Speech improved. However does stutter in between. Discontinue levofloxacin marking the completion of UTI course. Continue B12 intramuscular injection. 5 doses total administered. Continue B12 1000 mcg daily.. Awaiting level 2 authorization for halfway placement We have started guardianship paperwork, has been appointed his daughter which is the stepdaughter of Monica as medical DPOA DVT prophylaxis 10 mg twice daily until 07/05 then she will get 5 mg twice daily Hypertensive well-managed with lisinopril Continue Zyprexa 2.[address] Silva catheter today for urinary retention. Attestations 2 Medical Necessity Statement*: Awaiting placement. Diagnoses Depression with anxiety F41.8 DVT (deep venous thrombosis) I82.409 Pulmonary embolism I26.99 Failure to thrive Altered mental status R41.82 Generalized weakness R53.1 Encounter for assessment of decision-making capacity Z00.8 B12 deficiency E53.8
--- NOTE | 2024-07-07 15:58 | XRR_ITS ---
PROCEDURE INFORMATION: Exam: XR Abdomen Exam date and time: 07/07/2024 8:00 PM Age: 74 years old Clinical indication: Patient HX: Abdomen pain; Constipation TECHNIQUE: Imaging protocol: Radiologic exam of the abdomen. Views: Frontal supine view of the abdomen. 1 View. COMPARISON: CT abdomen pelvis w con* [id number] 06/09/2024 11:55 AM FINDINGS: Lungs: There is calcified granuloma seen projected in the right upper quadrant of the abdomen. Gastrointestinal tract: Bowel gas pattern is unremarkable. Large amount of feces is seen in the descending colon and rectum which is consistent with the given clinical history of constipation. Bones/joints: There are advanced degenerative changes in the lumbar spine with mild scoliosis concave to the right. XR/XR KUB portable [id number] IMPRESSION: 1. Cholelithiasis 2. Findings consistent with a history of constipation.
[2024-07-07 16:00] VITALS: BP 145/83; PULSE 92; RESP 16; TEMP 36.6; O2SAT 99
[2024-07-07] MEDS: lactulose oral liq 20 gm/30 mL UDC PO (17:15)
[2024-07-07 20:00] VITALS: BP 134/80; PULSE 99; RESP 20; TEMP 36.4; O2SAT 97
[2024-07-08] VITALS: BP 131/65; PULSE 79; RESP 14; TEMP 36.7; O2SAT 96
[2024-07-08 04:00] VITALS: BP 150/80; PULSE 83; RESP 18; TEMP 36.6; O2SAT 97
[2024-07-08] MEDS: sodium chloride 0.9% 1,000 ML 100 ML IV (04:52)
[2024-07-08] MEDS: haloperidol inj 5 mg/mL INJ 1 mL 2 MG IVP (04:52)
--- NOTE | 2024-07-08 04:56 | PC.NURSE ---
Patient yelling out and becoming agitated. Dr. Hinkle notified. 2 mg IVP Haldol x1 ordered.
--- NOTE | 2024-07-08 05:26 | PC.NURSE ---
Patient refusing AM lab draws.
[2024-07-08 08:00] VITALS: BP 155/75; PULSE 82; RESP 18; TEMP 36.8; O2SAT 97
[2024-07-08] MEDS: lactulose oral liq 20 gm/30 mL UDC PO ×2 (09:12→21:29)
[2024-07-08] MEDS: OLANZapine 5 mg TABLET 2.5 MG PO (09:12)
[2024-07-08] MEDS: lisinopril 10 mg Tablet PO (09:12)
[2024-07-08] MEDS: escitalopram 10 mg Tablet PO (09:12)
[2024-07-08] MEDS: cyanocobalamin 1,000 mcg Tablet 1000 MCG PO (09:12)
[2024-07-08] MEDS: sennosides-docusate Tablet 1 TAB PO (09:13)
[2024-07-08 11:35] VITALS: BP 148/85; PULSE 96; RESP 19; TEMP 36.5; O2SAT 98
[2024-07-08] MEDS: amlodipine 5 mg Tablet 10 MG PO (11:36)
[2024-07-08] MEDS: enoxaparin 40 mg/0.4 mL Syringe SUBCUT (11:37)
--- NOTE | 2024-07-08 12:30 | PC.SOCIAL ---
IMM Update pg 2 of IMM not updated w/ patient as guardianship and Level 2 are pending @ this time and patient is not anticipated to DC in the next 24-48 hours.
[2024-07-08 12:59] LABS: Basophils # 0.1 10^3/uL (0.0-0.1); Basophils % 0.7 %; Eosinophils # 0.1 10^3/uL (0.0-0.8); Eosinophils % 0.5 %; Hematocrit 41.8 % (36-47); Lymphocytes # 1.5 10^3/uL (0.8-4.8); Lymphocytes % 15.4 %; Mean Corpuscular HGB Conc 33.5 g/dL (30-55); Mean Corpuscular Volume 92.5 fl (85-98); Mean Platelet Volume 10.8 fL (7.4-10.4); Monocytes # 0.5 10^3/uL (0.2-0.9); Monocytes % 5.6 %; Neutrophils # 7.37 10^3/uL (1.8-7.7); Neutrophils % 77.5 %; Nucleated Red Blood Cells % 0 %; Platelet Count 309 10^3/cmm (157-399); Red Blood Count 4.52 10^6/uL (3.85-5.65); Red Cell Distribution Width 14.9 % (12.1-15.1); White Blood Count 9.51 10^3/uL (3.29-11.43)
[2024-07-08 13:17] LABS: Alanine Aminotransferase 27 U/L (0-33); Albumin Level 3.7 g/dL (3.5-5.2); Alkaline Phosphatase 74 U/L (35-105); Chloride 110 mmol/L (98-107); Potassium 3.5 mmol/L (3.5-5.1); Sodium 143 mmol/L (136-145)
[2024-07-08 13:42] LABS: Anion Gap 11.5 (5-19); Aspartate Amino Transferase 22 U/L (0-32); Blood Urea Nitrogen 10 mg/dL (8-23); Calcium 8.8 mg/dL (8.5-10.5); Carbon Dioxide 25 mmol/L (22-29); Creatinine Clr Calc Pharmacy 44.1056; Globulin 2.6 g/dL (1.3-4.6); Glucose 151 mg/dL (65-115); Osmolality Calculated 298 mOsm/kg (285-295); Total Bilirubin 0.9 mg/dL (0.15-1.2); Total Protein 6.3 g/dL (6.6-8.7)
--- NOTE | 2024-07-08 15:10 | P.PN_ITS ---
Subjective 2 Subjective: Hospital course, labs appreciated. Seen with stepdaughter and at bedside. Patient is sitting comfortably in bed, seems to be awake and alert though severely lethargic. Appreciate hemodynamics. Remains on room air. Afebrile. Vitals/I&O/Wt Last Vital Signs Temp 97.7 F 07/08/24 11:35 Pulse 96 07/08/24 11:35 Resp 19 H 07/08/24 11:35 BP 148/85 07/08/24 11:35 Pulse Ox 98 07/08/24 11:35 O2 Del Method Room Air 07/08/24 11:35 07/08/24 07/08/24 07/08/24 06:59 14:59 22:59 Intake Total 893.333 / 2848.333 608.333 / 608.333 Output Total 150 / 650 Balance 743.333 / 2198.333 608.333 / 608.333 Weight last 48 hrs Weight 43.953 kg Weight 42.275 kg Physical Exam 2 Narrative: General: No acute distress, AO x 2 to 3, slow to respond, chronically sick appearing, thin built HEENT: PERRLA, pupils bilaterally equal and reactive Chest: Normal vesicular breath sounds, no added sounds, equal good air entry bilaterally CVS: S1-S2 regular, no murmurs, no tachycardia, no gallops, no rubs Abdomen: Soft, nontender, no organomegaly, bowel sounds present Neuro: No focal deficits, no facial deformity, AO x3, power 5/5 in all limbs Urinary Catheter Management: Silva: Cath Placed During This Visit: yes Reason for Continuing Indwelling Catheter: Acute Urinary Retention or Obstruction Urinary Catheter Date of Insertion: 07/07/24 Urinary Catheter Time of Insertion: 14:30 Data 07/08/24 12:52 07/08/24 12:52 A&P Assessment and plan (1) Altered mental status: Most likely in setting of worsening of patient's baseline dementia in setting of new environment when she moved to live with her stepdaughter. No concerns for infectious encephalopathy on admission. Patient has been in hospital for more than 10 days of IV antibiotics and has remained afebrile. UA done on admission negative for concern for UTI. Patient remains on room air so low concerns for pneumonia. Stroke ruled out on admission with negative CT head. MRI done during admission shows chronic age-related changes without concern for acute ischemia. Appreciate psych recommendations. Switching to Remeron as below. Patient lethargic today. Family concerned about patient lethargy and requesting to change in medications to see if oral intake can be increased. Hold off on Zyprexa. Start on Namenda 10 mg twice daily. If needed will restart Zyprexa on low-dose at night. (2) Depression with anxiety: (3) DVT (deep venous thrombosis): Appreciate lower limb Dopplers during her admission. With concerns for PE on CTA. (4) Pulmonary embolism: Remains on room air. Received 10 mg twice daily of Eliquis till 07/05. Start on full dose Lovenox 1 mg/kg body weight every 12 hourly. Will transition over to oral Eliquis at 5 mg twice daily on discharge. (5) Failure to thrive: With concern for malnourishment. Decreased appetite. Also concern for vitamin B12 deficiency. Check iron panel. Add protein shakes. Switch from Lexapro to Remeron which will also help and possibly increasing appetite. (6) Generalized weakness: (7) Encounter for assessment of decision-making capacity: (8) B12 deficiency: Plan Urinary retention: Continue with Silva catheterization for now. Add Flomax 0.4 mg daily. Will retry voiding trial next 24 to 48 hours. Constipation: Continue docusate senna 1 tablet daily. Last bowel movement was 07/04. Discharge plan: Given all of the above DPOA paperwork with guardianship going to patient's stepdaughter Monica been worked up. Patient would benefit from placement to SNF as family will not be able to take care of her needs at home. Awaiting level 2. Attestations 2 Medical Necessity Statement*: Requires further hospitalization for safe discharge planning in a patient with altered mental status, generalized weakness in setting of worsening dementia, failure to thrive, lower limb DVT with PE Diagnoses Altered mental status R41.82 Depression with anxiety F41.8 DVT (deep venous thrombosis) I82.409 Pulmonary embolism I26.99 Failure to thrive Generalized weakness R53.1 Encounter for assessment of decision-making capacity Z00.8 B12 deficiency E53.8
[2024-07-08 15:54] LABS: Iron 72 ug/dL (37-145); Percent Saturation 44.1 % (20-50); Total Iron Binding Capacity 163 mcg/dl; Unsaturated Iron Binding 91 ug/dL (112-347)
[2024-07-08 16:00] VITALS: BP 122/71; PULSE 93; RESP 18; TEMP 36.4; O2SAT 95
[2024-07-08] MEDS: memantine 5 mg tablet 10 MG PO (17:32)
[2024-07-08 20:00] VITALS: BP 125/71; PULSE 73; RESP 16; TEMP 36.6; O2SAT 98
[2024-07-08] MEDS: mirtazapine 15 mg Tablet PO (21:41)
[2024-07-09] VITALS (7 sets, daily range): BP systolic 81–144; BP diastolic 46–79; PULSE 71–108; RESP 15–18; TEMP 36.3–36.9; O2SAT 95–97
[2024-07-09] MEDS: enoxaparin 40 mg/0.4 mL Syringe SUBCUT ×2 (00:39→11:55)
[2024-07-09 06:17] LABS: Basophils # 0.1 10^3/uL (0.0-0.1); Basophils % 1.2 %; Eosinophils # 0.1 10^3/uL (0.0-0.8); Hematocrit 38.4 % (36-47); Lymphocytes # 1.7 10^3/uL (0.8-4.8); Lymphocytes % 24.7 %; Mean Corpuscular HGB Conc 33.9 g/dL (30-55); Mean Corpuscular Hemoglobin 31.6 pg (27-33); Mean Corpuscular Volume 93.4 fl (85-98); Mean Platelet Volume 11.8 fL (7.4-10.4); Monocytes # 0.6 10^3/uL (0.2-0.9); Monocytes % 8.1 %; Neutrophils % 64.7 %; Nucleated Red Blood Cells % 0 %; Platelet Count 276 10^3/cmm (157-399); Red Blood Count 4.11 10^6/uL (3.85-5.65); Red Cell Distribution Width 15.1 % (12.1-15.1)
[2024-07-09 06:54] LABS: Alanine Aminotransferase 23 U/L (0-33); Albumin Level 3.3 g/dL (3.5-5.2); Alkaline Phosphatase 66 U/L (35-105); Anion Gap 11.6 (5-19); Aspartate Amino Transferase 19 U/L (0-32); Blood Urea Nitrogen 8 mg/dL (8-23); Calcium 8.1 mg/dL (8.5-10.5); Carbon Dioxide 26 mmol/L (22-29); Chloride 110 mmol/L (98-107); Globulin 2.3 g/dL (1.3-4.6); Glucose 99 mg/dL (65-115); Osmolality Calculated 296 mOsm/kg (285-295); Potassium 3.6 mmol/L (3.5-5.1); Sodium 144 mmol/L (136-145); Total Bilirubin 0.8 mg/dL (0.15-1.2); Total Protein 5.6 g/dL (6.6-8.7)
[2024-07-09] MEDS: lactulose oral liq 20 gm/30 mL UDC PO ×2 (09:21→21:02)
[2024-07-09] MEDS: memantine 5 mg tablet 10 MG PO ×2 (09:21→17:50)
[2024-07-09] MEDS: cyanocobalamin 1,000 mcg Tablet 1000 MCG PO (09:22)
[2024-07-09] MEDS: sennosides-docusate Tablet 1 TAB PO (09:22)
--- NOTE | 2024-07-09 12:25 | P.PN_ITS ---
Subjective 2 Subjective: No acute events overnight. Today morning patient seen sitting up in chair. She states she is feeling weak. Does not want take medications. Patient's appetite has been poor and as per the nursing staff her oral intake has been very limited. Today morning her blood pressures were found to be 80 systolics because of which antihypertensives were withheld. Vitals/I&O/Wt Last Vital Signs Temp 98.0 F 07/09/24 12:02 Pulse 108 H 07/09/24 12:02 Resp 17 07/09/24 12:02 BP 81/46 07/09/24 12:02 Pulse Ox 96 07/09/24 12:02 O2 Del Method Room Air 07/09/24 12:02 07/08/24 07/09/24 07/09/24 22:59 06:59 14:59 Intake Total 120 / 728.333 Output Total 1000 / 1000 350 / 1350 Balance -880 / -271.667 -350 / -621.667 Weight last 48 hrs Weight 42.91 kg Weight 43.953 kg Physical Exam 2 Narrative: General: No acute distress, AO x 2 to 3, slow to respond, chronically sick appearing, thin built HEENT: PERRLA, pupils bilaterally equal and reactive Chest: Normal vesicular breath sounds, no added sounds, equal good air entry bilaterally CVS: S1-S2 regular, no murmurs, no tachycardia, no gallops, no rubs Abdomen: Soft, nontender, no organomegaly, bowel sounds present Neuro: No focal deficits, no facial deformity, AO x3, power 5/5 in all limbs Urinary Catheter Management: Silva: Cath Placed During This Visit: yes Reason for Continuing Indwelling Catheter: Acute Urinary Retention or Obstruction Urinary Catheter Date of Insertion: 07/07/24 Urinary Catheter Time of Insertion: 14:30 Data 07/09/24 05:38 07/09/24 05:38 A&P Assessment and plan (1) Altered mental status: Most likely in setting of worsening of patient's baseline dementia in setting of new environment when she moved to live with her stepdaughter. No concerns for infectious encephalopathy on admission. Patient has been in hospital for more than 10 days of IV antibiotics and has remained afebrile. UA done on admission negative for concern for UTI. Patient remains on room air so low concerns for pneumonia. Stroke ruled out on admission with negative CT head. MRI done during admission shows chronic age-related changes without concern for acute ischemia. Appreciate psych recommendations. Switching to Remeron as below. Patient lethargic today. Family concerned about patient lethargy and requesting to change in medications to see if oral intake can be increased. Hold off on Zyprexa. Start on Namenda 10 mg twice daily. If needed will restart Zyprexa on low-dose at night. (2) Depression with anxiety: (3) DVT (deep venous thrombosis): Appreciate lower limb Dopplers during her admission. With concerns for PE on CTA. (4) Pulmonary embolism: Remains on room air. Received 10 mg twice daily of Eliquis till 07/05. Start on full dose Lovenox 1 mg/kg body weight every 12 hourly. Will transition over to oral Eliquis at 5 mg twice daily on discharge. (5) Failure to thrive: With concern for malnourishment. Decreased appetite. Also concern for vitamin B12 deficiency. Check iron panel. Add protein shakes. Switch from Lexapro to Remeron which will also help and possibly increasing appetite. (6) Generalized weakness: (7) Encounter for assessment of decision-making capacity: (8) B12 deficiency: Plan Urinary retention: Continue with Silva catheterization for now. Add Flomax 0.4 mg daily. Will retry voiding trial next 24 to 48 hours. Constipation: Continue docusate senna 1 tablet daily. Last bowel movement was 07/04. Discharge plan: Given all of the above DPOA paperwork with guardianship going to patient's stepdaughter Monica been worked up. Patient would benefit from placement to SNF as family will not be able to take care of her needs at home. Awaiting level 2. Plan for the day: Patient hypertensive today. Most likely in setting of multiple medications she received yesterday. Yesterday patient's blood pressures were elevated after she got lisinopril and she was given an extra dose of amlodipine. Flomax was started for urinary retention. Hold off on antihypertensive for now. Continue with Flomax. Check cortisol level. IV fluid bolus with 500 cc of normal saline. Monitor blood pressures with goal blood pressure less than 140/90 mmHg with mean over 65. Continue with Namenda and mirtazapine. Physical therapy. Attestations 2 Medical Necessity Statement*: Requires further hospitalization for management while safe discharge planning is sought in a patient who was admitted with metabolic encephalopathy in setting of worsening dementia, DVT and PE Diagnoses Altered mental status R41.82 Depression with anxiety F41.8 DVT (deep venous thrombosis) I82.409 Pulmonary embolism I26.99 Failure to thrive Generalized weakness R53.1 Encounter for assessment of decision-making capacity Z00.8 B12 deficiency E53.8
[2024-07-09] MEDS: sodium chloride 0.9% 500 ML 999 ML IV (13:00)
[2024-07-09 13:19] LABS: Cortisol Random 10.88 ug/dL (2.47-19.5)
[2024-07-09] MEDS: mirtazapine 15 mg Tablet PO (21:02)
[2024-07-10] VITALS: BP 116/60; PULSE 74; RESP 16; TEMP 36.7; O2SAT 96
[2024-07-10] MEDS: enoxaparin 40 mg/0.4 mL Syringe SUBCUT ×3 (00:01→22:41)
[2024-07-10 04:00] VITALS: BP 113/63; PULSE 78; RESP 16; TEMP 37.1; O2SAT 96
[2024-07-10 08:00] VITALS: BP 128/77; PULSE 80; RESP 14; TEMP 36.8; O2SAT 96
[2024-07-10] MEDS: memantine 5 mg tablet 10 MG PO ×2 (08:51→17:17)
[2024-07-10] MEDS: tamsulosin 0.4 mg Capsule PO (08:51)
[2024-07-10] MEDS: lactulose oral liq 20 gm/30 mL UDC PO (08:51)
[2024-07-10] MEDS: cyanocobalamin 1,000 mcg Tablet 1000 MCG PO (08:51)
[2024-07-10] MEDS: sennosides-docusate Tablet 1 TAB PO (08:51)
--- NOTE | 2024-07-10 09:06 | PC.SOCIAL ---
IMM Update Pg 2 of IMM not updated as patient is not expected to DC in the next 24-48 hours due to pending level 2 and guardianship.
[2024-07-10] MEDS: megestrol 400 mg/10 mL UDC PO (10:46)
[2024-07-10 12:00] VITALS: BP 121/67; PULSE 99; RESP 14; TEMP 37; O2SAT 96
--- NOTE | 2024-07-10 12:52 | P.PN_ITS ---
Subjective 2 Subjective: No acute events over today. Blood pressure is better today no further episodes of hypotension. Patient remains on room air. Patient continues to be slow to respond with poor oral intake. Vitals/I&O/Wt Last Vital Signs Temp 98.6 F 07/10/24 12:00 Pulse 99 07/10/24 12:00 Resp 14 07/10/24 12:00 BP 121/67 07/10/24 12:00 Pulse Ox 96 07/10/24 12:00 O2 Del Method Room Air 07/10/24 12:00 07/09/24 07/10/24 07/10/24 22:59 06:59 14:59 Intake Total 100 / 600 180 / 180 Output Total 400 / 400 Balance -300 / 200 180 / 180 Weight last 48 hrs Weight 42.91 kg Weight 42.91 kg Physical Exam 2 Narrative: General: No acute distress, AO x 2 to 3, slow to respond, chronically sick appearing, thin built HEENT: PERRLA, pupils bilaterally equal and reactive Chest: Normal vesicular breath sounds, no added sounds, equal good air entry bilaterally CVS: S1-S2 regular, no murmurs, no tachycardia, no gallops, no rubs Abdomen: Soft, nontender, no organomegaly, bowel sounds present Neuro: No focal deficits, no facial deformity, AO x3, power 5/5 in all limbs Urinary Catheter Management: Islva: Cath Placed During This Visit: yes Reason for Continuing Indwelling Catheter: Other Urinary Catheter Date of Insertion: 07/07/24 Urinary Catheter Time of Insertion: 14:30 Data 07/09/24 05:38 07/09/24 05:38 A&P Assessment and plan (1) Altered mental status: Most likely in setting of worsening of patient's baseline dementia in setting of new environment when she moved to live with her stepdaughter. No concerns for infectious encephalopathy on admission. Patient has been in hospital for more than 10 days of IV antibiotics and has remained afebrile. UA done on admission negative for concern for UTI. Patient remains on room air so low concerns for pneumonia. Stroke ruled out on admission with negative CT head. MRI done during admission shows chronic age-related changes without concern for acute ischemia. Appreciate psych recommendations. Switching to Remeron as below. Patient lethargic today. Family concerned about patient lethargy and requesting to change in medications to see if oral intake can be increased. Hold off on Zyprexa. Start on Namenda 10 mg twice daily. If needed will restart Zyprexa on low-dose at night. (2) Depression with anxiety: (3) DVT (deep venous thrombosis): Appreciate lower limb Dopplers during her admission. With concerns for PE on CTA. (4) Pulmonary embolism: Remains on room air. Received 10 mg twice daily of Eliquis till 07/05. Start on full dose Lovenox 1 mg/kg body weight every 12 hourly. Will transition over to oral Eliquis at 5 mg twice daily on discharge. (5) Failure to thrive: With concern for malnourishment. Decreased appetite. Also concern for vitamin B12 deficiency. Check iron panel. Add protein shakes. Switch from Lexapro to Remeron which will also help and possibly increasing appetite. (6) Generalized weakness: (7) Encounter for assessment of decision-making capacity: (8) B12 deficiency: Plan Urinary retention: Continue with Silva catheterization for now. Add Flomax 0.4 mg daily. Will retry voiding trial next 24 to 48 hours. Constipation: Continue docusate senna 1 tablet daily. Last bowel movement was 07/04. Discharge plan: Given all of the above DPOA paperwork with guardianship going to patient's stepdaughter Monica been worked up. Patient would benefit from placement to SNF as family will not be able to take care of her needs at home. Awaiting level 2. Plan for the day: Blood pressure is better today. Continue to hold off on antihypertensive. Goal blood pressure less than 140/90 mmHg. Appreciate cortisol level. Continue with Flomax. Voiding trial. Increase dose of mirtazapine to 30 mg oral daily, continue with Namenda. Add Megace as appetite stimulant. Continue with full dose of Lovenox. Will transition over to Eliquis on discharge. Attestations 2 Medical Necessity Statement*: Requires further hospitalization while provide authorization and level 2 is awaited in a patient admitted with concerns for failure to thrive, altered mental status in setting of worsening dementia and depression, pulmonary embolism Diagnoses Altered mental status R41.82 Depression with anxiety F41.8 DVT (deep venous thrombosis) I82.409 Pulmonary embolism I26.99 Failure to thrive Generalized weakness R53.1 Encounter for assessment of decision-making capacity Z00.8 B12 deficiency E53.8
[2024-07-10 15:06] VITALS: BP 100/63; PULSE 95; RESP 16; TEMP 37.2; O2SAT 94
[2024-07-10 18:39] LABS: Basophils # 0.1 10^3/uL (0.0-0.1); Basophils % 1.2 %; Eosinophils % 0.5 %; Hematocrit 36.8 % (36-47); Lymphocytes # 1.7 10^3/uL (0.8-4.8); Lymphocytes % 28.2 %; Mean Corpuscular HGB Conc 32.9 g/dL (30-55); Mean Corpuscular Volume 94.4 fl (85-98); Mean Platelet Volume 11.7 fL (7.4-10.4); Monocytes # 0.4 10^3/uL (0.2-0.9); Monocytes % 6.1 %; Neutrophils # 3.84 10^3/uL (1.8-7.7); Neutrophils % 63.7 %; Nucleated Red Blood Cells % 0 %; Platelet Count 215 10^3/cmm (157-399); White Blood Count 6.03 10^3/uL (3.29-11.43)
[2024-07-10 18:59] LABS: Alanine Aminotransferase 22 U/L (0-33); Albumin Level 3.1 g/dL (3.5-5.2); Alkaline Phosphatase 65 U/L (35-105); Anion Gap 10.4 (5-19); Aspartate Amino Transferase 18 U/L (0-32); Blood Urea Nitrogen 18 mg/dL (8-23); Calcium 8.4 mg/dL (8.5-10.5); Carbon Dioxide 27 mmol/L (22-29); Chloride 108 mmol/L (98-107); Globulin 2.4 g/dL (1.3-4.6); Glucose 126 mg/dL (65-115); Osmolality Calculated 297 mOsm/kg (285-295); Potassium 3.4 mmol/L (3.5-5.1); Sodium 142 mmol/L (136-145); Total Bilirubin 0.9 mg/dL (0.15-1.2); Total Protein 5.5 g/dL (6.6-8.7)
[2024-07-10 20:00] VITALS: BP 115/67; PULSE 83; RESP 15; TEMP 36.8; O2SAT 96
[2024-07-10] MEDS: mirtazapine 15 mg Tablet 30 MG PO (21:19)
[2024-07-11] VITALS: BP 154/74; PULSE 84; RESP 14; TEMP 36.8; O2SAT 97
[2024-07-11 04:00] VITALS: BP 138/76; PULSE 93; RESP 17; TEMP 36.7; O2SAT 95
[2024-07-11 07:46] VITALS: BP 142/81; PULSE 93; RESP 15; TEMP 37.2; O2SAT 96
[2024-07-11] MEDS: megestrol 400 mg/10 mL UDC PO (08:28)
[2024-07-11] MEDS: tamsulosin 0.4 mg Capsule PO (08:28)
[2024-07-11] MEDS: memantine 5 mg tablet 10 MG PO ×2 (08:28→16:43)
[2024-07-11] MEDS: sennosides-docusate Tablet 1 TAB PO (08:29)
[2024-07-11] MEDS: cyanocobalamin 1,000 mcg Tablet 1000 MCG PO (08:29)
--- NOTE | 2024-07-11 10:57 | P.PN_ITS ---
Subjective 2 Subjective: Patient states that she is doing ok today. Denies pain, dyspnea, or other concerns. Medications: Reviewed: Yes Vitals/I&O/Wt Last Vital Signs Temp 99.0 F 07/11/24 07:46 Pulse 93 07/11/24 07:46 Resp 15 07/11/24 07:46 BP 142/81 07/11/24 07:46 Pulse Ox 96 07/11/24 07:46 O2 Del Method Room Air 07/11/24 07:46 07/10/24 07/11/24 07/11/24 22:59 06:59 14:59 Intake Total 120 / 540 60 / 60 Output Total 250 / 450 Balance 120 / 340 -250 / 90 60 / 60 Weight last 48 hrs Weight 95 lb 11.2 oz Weight 94 lb 9.6 oz Physical Exam 2 Narrative: General: Cooperative patient in no apparent distress. Thin and frail appearing. HEENT: Normocephalic, Atraumatic. External ears normal. Nasal passages patent without drainage. MMM. Heart: RRR. Resp: LCTA. No respiratory distress, no use of accessory muscles. Abd: Soft, non-tender. Non-distended. Extremities: No edema. Skin: No rash or lesions on exposed areas. Neuro: No focal motor or sensory loss. Urinary Catheter Management: Redmond: Cath Placed During This Visit: yes, but has since been removed by the nurse Reason for Continuing Indwelling Catheter: Acute Urinary Retention or Obstruction Urinary Catheter Date of Insertion: 07/07/24 Urinary Catheter Time of Insertion: 14:30 Date Urinary Catheter Removed: 07/10/24 Time Urinary Catheter Discontinued: 13:23 Data 07/10/24 18:12 07/10/24 18:12 A&P Assessment and plan (1) Altered mental status: Most likely in setting of worsening of patient's baseline dementia in setting of new environment when she moved to live with her stepdaughter. No concerns for infectious encephalopathy on admission. Patient has been in hospital for more than 10 days of IV antibiotics and has remained afebrile. UA done on admission negative for concern for UTI. Patient remains on room air so low concerns for pneumonia. Stroke ruled out on admission with negative CT head. MRI done during admission shows chronic age-related changes without concern for acute ischemia. Appreciate psych recommendations. Switching to Remeron as below. Patient lethargic today. Family concerned about patient lethargy and requesting to change in medications to see if oral intake can be increased. Hold off on Zyprexa. Start on Namenda 10 mg twice daily. If needed will restart Zyprexa on low-dose at night. (2) Depression with anxiety: (3) DVT (deep venous thrombosis): Appreciate lower limb Dopplers during her admission. With concerns for PE on CTA. (4) Pulmonary embolism: Remains on room air. Received 10 mg twice daily of Eliquis till 07/05. Start on full dose Lovenox 1 mg/kg body weight every 12 hourly. Will transition over to oral Eliquis at 5 mg twice daily on discharge. (5) Failure to thrive: With concern for malnourishment. Decreased appetite. Also concern for vitamin B12 deficiency. Check iron panel. Add protein shakes. Switch from Lexapro to Remeron which will also help and possibly increasing appetite. (6) Generalized weakness: (7) Encounter for assessment of decision-making capacity: (8) B12 deficiency: Plan 74 y/o female admitted for AMS, PE and failure to thrive. Plan for the day: Continue close inpatient monitoring. BP remains well controlled. Will hold on antihypertensive home medications. Continue with Flomax. Start Voiding trials. Will d/c redmond once able to void on own. Increase dose of mirtazapine to 30 mg oral daily, continue with Namenda. Add Megace as appetite stimulant. Continue with full dose of Lovenox. Will transition over to Eliquis on discharge. Code Status: Full IVF: none DVT PPx: Lovenox GI PPx: None ABx: None Diet: Regular Discharge plan: Given all of the above DPOA paperwork with guardianship going to patient's stepdaughter Monica been worked up. Patient would benefit from placement to SNF as family will not be able to take care of her needs at home. Awaiting level 2. Attestations 2 Medical Necessity Statement*: Continue inpatient monitoring for appetite stimulating medications and awaiting placement to SNF for weakness and failure to thrive. Coding Level of Care Code Acute Code for Chg Fwd Diagnoses Altered mental status R41.82 Depression with anxiety F41.8 DVT (deep venous thrombosis) I82.409 Pulmonary embolism I26.99 Failure to thrive Generalized weakness R53.1 Encounter for assessment of decision-making capacity Z00.8 B12 deficiency E53.8
[2024-07-11 11:50] VITALS: BP 118/65; PULSE 88; RESP 17; TEMP 36.4; O2SAT 96
[2024-07-11] MEDS: enoxaparin 40 mg/0.4 mL Syringe SUBCUT ×2 (11:53→23:20)
[2024-07-11 16:00] VITALS: BP 132/74; PULSE 78; RESP 18; TEMP 36.7; O2SAT 96
[2024-07-11 20:00] VITALS: BP 148/71; PULSE 79; RESP 14; TEMP 37; O2SAT 97
[2024-07-11] MEDS: mirtazapine 15 mg Tablet 30 MG PO (20:33)
[2024-07-12] VITALS (7 sets, daily range): BP systolic 101–124; BP diastolic 65–71; PULSE 85–99; RESP 13–16; TEMP 36.7–37.2; O2SAT 93–98
[2024-07-12] MEDS: megestrol 400 mg/10 mL UDC PO (08:49)
[2024-07-12] MEDS: memantine 5 mg tablet 10 MG PO ×2 (08:56→16:58)
[2024-07-12] MEDS: cyanocobalamin 1,000 mcg Tablet 1000 MCG PO (09:01)
[2024-07-12] MEDS: tamsulosin 0.4 mg Capsule PO (09:06)
--- NOTE | 2024-07-12 10:11 | PC.SOCIAL ---
IMM Update pg 2 of IMM Not updated w/ patient as guardianship and level 2 are pending @ this time.
--- NOTE | 2024-07-12 10:56 | P.PN_ITS ---
Subjective 2 Subjective: No overnight events. Patient denies any pain or problems today. Says that she is still trying to drink her protein shakes. Vitals/I&O/Wt Last Vital Signs Temp 98.8 F 07/12/24 07:39 Pulse 91 07/12/24 07:39 Resp 14 07/12/24 07:39 BP 122/71 07/12/24 07:39 Pulse Ox 95 07/12/24 07:39 O2 Del Method Room Air 07/12/24 07:39 07/11/24 07/12/24 07/12/24 22:59 06:59 14:59 Intake Total 180 / 340 0 / 0 Balance 180 / 340 0 / 0 Weight last 48 hrs Weight 93 lb 3.2 oz Weight 95 lb 11.2 oz Physical Exam 2 Narrative: General: Cooperative patient in no apparent distress. Thin and frail appearing. HEENT: Normocephalic, Atraumatic. External ears normal. Nasal passages patent without drainage. MMM. Heart: RRR. Resp: LCTA. No respiratory distress, no use of accessory muscles. Abd: Soft, non-tender. Non-distended. Extremities: No edema. Skin: No rash or lesions on exposed areas. Neuro: No focal motor or sensory loss. Urinary Catheter Management: Redmond: Cath Placed During This Visit: yes, but has since been removed by the nurse Reason for Continuing Indwelling Catheter: Acute Urinary Retention or Obstruction Urinary Catheter Date of Insertion: 07/07/24 Urinary Catheter Time of Insertion: 14:30 Date Urinary Catheter Removed: 07/10/24 Time Urinary Catheter Discontinued: 13:23 Data 07/10/24 18:12 07/10/24 18:12 A&P Assessment and plan (1) Altered mental status: Most likely in setting of worsening of patient's baseline dementia in setting of new environment when she moved to live with her stepdaughter. No concerns for infectious encephalopathy on admission. Patient has been in hospital for more than 10 days of IV antibiotics and has remained afebrile. UA done on admission negative for concern for UTI. Patient remains on room air so low concerns for pneumonia. Stroke ruled out on admission with negative CT head. MRI done during admission shows chronic age-related changes without concern for acute ischemia. Appreciate psych recommendations. Switching to Remeron as below. Patient lethargic today. Family concerned about patient lethargy and requesting to change in medications to see if oral intake can be increased. Hold off on Zyprexa. Start on Namenda 10 mg twice daily. If needed will restart Zyprexa on low-dose at night. (2) Depression with anxiety: (3) DVT (deep venous thrombosis): Appreciate lower limb Dopplers during her admission. With concerns for PE on CTA. (4) Pulmonary embolism: Remains on room air. Received 10 mg twice daily of Eliquis till 07/05. Start on full dose Lovenox 1 mg/kg body weight every 12 hourly. Will transition over to oral Eliquis at 5 mg twice daily on discharge. (5) Failure to thrive: With concern for malnourishment. Decreased appetite. Also concern for vitamin B12 deficiency. Check iron panel. Add protein shakes. Switch from Lexapro to Remeron which will also help and possibly increasing appetite. (6) Generalized weakness: (7) Encounter for assessment of decision-making capacity: (8) B12 deficiency: Plan 74 y/o female admitted for AMS, PE and failure to thrive. Plan for the day: Continue close inpatient monitoring. BP remains well controlled. Will hold on antihypertensive home medications. Continue with Flomax. Start Voiding trials. Will d/c redmond once able to void on own. Increase dose of mirtazapine to 30 mg oral daily, continue with Namenda. Add Megace as appetite stimulant. Continue with full dose of Lovenox. Will transition over to Eliquis on discharge. Continue supplemental shakes. Still awaiting placement at long-term care facility with her inability to care for herself. We will discharge her once this is set up. Code Status: Full IVF: none DVT PPx: Lovenox GI PPx: None ABx: None Diet: Regular Discharge plan: Given all of the above DPOA paperwork with guardianship going to patient's stepdaughter Monica been worked up. Patient would benefit from placement to SNF as family will not be able to take care of her needs at home. Awaiting level 2. Attestations 2 Medical Necessity Statement*: Continue inpatient monitoring for appetite stimulating medications and awaiting placement to SNF for weakness and failure to thrive. Coding Level of Care Code Acute Code for Chg Fwd Moderate MDM includes number and complexity of problems actively addressed during encounter, amount and/or complexity of data reviewed/ordered and described risk of complication, morbidity or mortality of management as documented Diagnoses Altered mental status R41.82 Depression with anxiety F41.8 DVT (deep venous thrombosis) I82.409 Pulmonary embolism I26.99 Failure to thrive Generalized weakness R53.1 Encounter for assessment of decision-making capacity Z00.8 B12 deficiency E53.8
[2024-07-12] MEDS: enoxaparin 40 mg/0.4 mL Syringe SUBCUT (11:52)
[2024-07-12] MEDS: mirtazapine 15 mg Tablet 30 MG PO (21:22)
--- NOTE | 2024-07-12 21:26 | PC.NURSE ---
Patient refusing to drink evening lactulose. Patient educated on importance of taking medications.
[2024-07-13] VITALS (7 sets, daily range): BP systolic 91–158; BP diastolic 56–84; PULSE 72–89; RESP 15–18; TEMP 36.4–36.9; O2SAT 93–98
[2024-07-13] MEDS: enoxaparin 40 mg/0.4 mL Syringe SUBCUT (00:08)
[2024-07-13] MEDS: tamsulosin 0.4 mg Capsule PO (10:06)
[2024-07-13] MEDS: memantine 5 mg tablet 10 MG PO ×2 (10:06→17:03)
[2024-07-13] MEDS: megestrol 400 mg/10 mL UDC PO (10:06)
[2024-07-13] MEDS: cyanocobalamin 1,000 mcg Tablet 1000 MCG PO (10:07)
[2024-07-13] MEDS: sennosides-docusate Tablet 1 TAB PO (10:07)
[2024-07-13] MEDS: apixaban 5 mg Tablet PO ×2 (11:34→20:23)
--- NOTE | 2024-07-13 15:33 | P.PN_ITS ---
Subjective 2 Subjective: No acute vents overnight. Hospital course and labs appreciated. Patient laying comfortably in bed. Seen with caregiver at bedside. Patient continues to state that she is not feeling well. Does not feel like eating. Not able to tell what she is feeling wrong. Denies any pain. As per the caregiver at bedside she has been having mild hallucinations and has been getting forgetful. Patient's oral intake has been limited. Medications: Reviewed: Yes Vitals/I&O/Wt Last Vital Signs Temp 98.0 F 07/13/24 11:47 Pulse 81 07/13/24 11:47 Resp 15 07/13/24 11:47 BP 91/56 07/13/24 11:47 Pulse Ox 96 07/13/24 11:47 O2 Del Method Room Air 07/13/24 11:47 07/13/24 07/13/24 07/13/24 06:59 14:59 22:59 Intake Total 60 / 60 Output Total 300 / 800 Balance -300 / -800 60 / 60 Weight last 48 hrs Weight 41.912 kg Weight 42.275 kg Physical Exam 2 Narrative: General: No acute distress, AO x 2 to 3, slow to respond, chronically sick appearing, thin built HEENT: PERRLA, pupils bilaterally equal and reactive Chest: Normal vesicular breath sounds, no added sounds, equal good air entry bilaterally CVS: S1-S2 regular, no murmurs, no tachycardia, no gallops, no rubs Abdomen: Soft, nontender, no organomegaly, bowel sounds present Neuro: No focal deficits, no facial deformity, AO x3, power 5/5 in all limbs Urinary Catheter Management: Silva: Cath Placed During This Visit: yes, but has since been removed by the nurse Reason for Continuing Indwelling Catheter: Acute Urinary Retention or Obstruction Urinary Catheter Date of Insertion: 07/07/24 Urinary Catheter Time of Insertion: 14:30 Date Urinary Catheter Removed: 07/10/24 Time Urinary Catheter Discontinued: 13:23 Data 07/10/24 18:12 07/10/24 18:12 A&P Assessment and plan (1) Altered mental status: Most likely in setting of worsening of patient's baseline dementia in setting of new environment when she moved to live with her stepdaughter. No concerns for infectious encephalopathy on admission. Patient has been in hospital for more than 10 days of IV antibiotics and has remained afebrile. UA done on admission negative for concern for UTI. Patient remains on room air so low concerns for pneumonia. Stroke ruled out on admission with negative CT head. MRI done during admission shows chronic age-related changes without concern for acute ischemia. Appreciate psych recommendations. Switching to Remeron as below. Patient lethargic today. Family concerned about patient lethargy and requesting to change in medications to see if oral intake can be increased. Hold off on Zyprexa. Start on Namenda 10 mg twice daily. If needed will restart Zyprexa on low-dose at night. (2) Depression with anxiety: (3) DVT (deep venous thrombosis): Appreciate lower limb Dopplers during her admission. With concerns for PE on CTA. (4) Pulmonary embolism: Remains on room air. Received 10 mg twice daily of Eliquis till 07/05. Start on full dose Lovenox 1 mg/kg body weight every 12 hourly. Will transition over to oral Eliquis at 5 mg twice daily on discharge. (5) Failure to thrive: With concern for malnourishment. Decreased appetite. Also concern for vitamin B12 deficiency. Check iron panel. Add protein shakes. Switch from Lexapro to Remeron which will also help and possibly increasing appetite. (6) Generalized weakness: (7) Encounter for assessment of decision-making capacity: (8) B12 deficiency: Plan Urinary retention: Continue with Silva catheterization for now. Add Flomax 0.4 mg daily. Will retry voiding trial next 24 to 48 hours. Constipation: Continue docusate senna 1 tablet daily. Last bowel movement was 07/04. Discharge plan: Given all of the above DPOA paperwork with guardianship going to patient's stepdaughter Monica been worked up. Patient would benefit from placement to SNF as family will not be able to take care of her needs at home. Awaiting level 2. Plan for the day: Continue to hold off on antihypertensive. Blood pressure is better. Continue with oral Flomax. Patient passed voiding trial. Silva catheter removed. Continue with Namenda, Remeron. Add Aricept. Continue with vitamin B12 oral intake. Patient has been on full dose anticoagulation with Lovenox for last 5 days. Will transition to Eliquis 5 mg twice daily today. Attestations 2 Medical Necessity Statement*: Requires further hospitalization while level 2 is awaited for placement in a patient admitted for altered mental status in setting of worsening dementia, new DVT and PE Diagnoses Altered mental status R41.82 Depression with anxiety F41.8 DVT (deep venous thrombosis) I82.409 Pulmonary embolism I26.99 Failure to thrive Generalized weakness R53.1 Encounter for assessment of decision-making capacity Z00.8 B12 deficiency E53.8
[2024-07-13] MEDS: sodium chloride 0.9% 1,000 ML 50 ML IV (17:00)
[2024-07-13] MEDS: mirtazapine 15 mg Tablet 30 MG PO (20:22)
[2024-07-13] MEDS: donepezil 5 MG Tablet 10 MG PO (20:22)
--- NOTE | 2024-07-13 21:37 | PC.NURSE ---
Patent is getting agitated and hollering out, wanting someone to be in the room with her and to take her out of this place. Physician marketing production manager notified of behaviors. Physician to put in order for anxiolytic. Plan of care ongoing.
[2024-07-13] MEDS: OLANZapine 5 mg TABLET 2.5 MG PO (22:34)
[2024-07-14] VITALS (18 sets, daily range): BP systolic 80–157; BP diastolic 51–92; PULSE 72–126; RESP 7–26; TEMP 36.4–36.9; O2SAT 91–99
[2024-07-14 05:38] LABS: Basophils % 0.2 %; Hematocrit 40.7 % (36-47); Lymphocytes # 0.9 10^3/uL (0.8-4.8); Lymphocytes % 6.3 %; Mean Corpuscular HGB Conc 33.7 g/dL (30-55); Mean Corpuscular Hemoglobin 30.7 pg (27-33); Mean Corpuscular Volume 91.3 fl (85-98); Mean Platelet Volume 12.6 fL (7.4-10.4); Monocytes # 0.6 10^3/uL (0.2-0.9); Monocytes % 3.8 %; Neutrophils # 12.85 10^3/uL (1.8-7.7); Neutrophils % 89.2 %; Nucleated Red Blood Cells % 0 %; Platelet Count 228 10^3/cmm (157-399); Red Blood Count 4.46 10^6/uL (3.85-5.65); Red Cell Distribution Width 14.5 % (12.1-15.1); White Blood Count 14.41 10^3/uL (3.29-11.43)
[2024-07-14 06:01] LABS: Alanine Aminotransferase 41 U/L (0-33); Albumin Level 3.9 g/dL (3.5-5.2); Alkaline Phosphatase 75 U/L (35-105); Anion Gap 17.1 (5-19); Aspartate Amino Transferase 39 U/L (0-32); Blood Urea Nitrogen 18 mg/dL (8-23); Calcium 8.8 mg/dL (8.5-10.5); Carbon Dioxide 23 mmol/L (22-29); Chloride 107 mmol/L (98-107); Creatinine Clr Calc Pharmacy 43.1041; Globulin 2.8 g/dL (1.3-4.6); Glucose 132 mg/dL (65-115); Osmolality Calculated 300 mOsm/kg (285-295); Potassium 4.1 mmol/L (3.5-5.1); Sodium 143 mmol/L (136-145); Total Bilirubin 1.3 mg/dL (0.15-1.2); Total Protein 6.7 g/dL (6.6-8.7)
[2024-07-14] MEDS: cyanocobalamin 1,000 mcg Tablet 1000 MCG PO (08:51)
[2024-07-14] MEDS: lactulose oral liq 20 gm/30 mL UDC PO ×2 (08:51→20:18)
[2024-07-14] MEDS: apixaban 5 mg Tablet PO ×2 (08:51→20:18)
[2024-07-14] MEDS: megestrol 400 mg/10 mL UDC PO (08:51)
[2024-07-14] MEDS: memantine 5 mg tablet 10 MG PO ×2 (08:51→17:48)
[2024-07-14] MEDS: tamsulosin 0.4 mg Capsule PO (08:51)
[2024-07-14] MEDS: sennosides-docusate Tablet 1 TAB PO (08:51)
--- NOTE | 2024-07-14 11:16 | P.DS_ITS ---
Discharge Providers Date of Admission: 06/27/24 15:44 Date of Discharge: July 14, 2024 Attending Provider at Admission: Blanca Niño MD Attending Provider at Discharge: Nhan Graham MD Diagnoses at Discharge Discharge Diagnosis (1) Altered mental status: Status: Acute (2) Depression with anxiety: Status: Acute (3) DVT (deep venous thrombosis): Status: Acute (4) Pulmonary embolism: Status: Acute (5) Failure to thrive: Status: Acute (6) Generalized weakness: Status: Acute (7) Encounter for assessment of decision-making capacity: Status: Acute (8) B12 deficiency: Status: Acute Reason for Visit Reason for Visit: eval Physical Exam Urinary Catheter Management: Silva: Cath Placed During This Visit: yes, but has since been removed by the nurse Reason for Continuing Indwelling Catheter: Acute Urinary Retention or Obstruction Urinary Catheter Date of Insertion: 07/07/24 Urinary Catheter Time of Insertion: 14:30 Date Urinary Catheter Removed: 07/10/24 Time Urinary Catheter Discontinued: 13:23 Discharge Data Studies Completed and Pending Completed Studies During Hospitalization Category Date Time Status CT head wo con* [id number] Stat Cat Scan 06/27/24 11:45 Completed CTA PE [CT angio chest PE protcl 11172] Routine Cat Scan 06/27/24 17:42 Completed XR KUB portable [id number] Routine Exams 07/07/24 15:58 Completed XR chest 1V portable [id number] Stat Exams 06/27/24 11:45 Completed XR foot LT min 3V* [id number] Stat Exams 06/27/24 11:45 Completed XR foot RT min 3V* [id number] Stat Exams 06/27/24 11:45 Completed MR head wo con* [id number] Routine MRI 06/29/24 15:42 [place] [id number] Routine Ultrasound 06/27/24 17:42 Completed Radiology Impressions Chest X-Ray 06/27/24 11:45 Impression: Atherosclerosis. Foot X-Ray 06/27/24 11:45 Impression: Negative left foot. Head CT 06/27/24 11:45 IMPRESSION: 1. No acute intracranial hemorrhage or edema. 2. Mild atrophy and mild small vessel disease. Chest CTA 06/27/24 17:42 IMPRESSION: 1. Right upper lobe posterior segmental, right lower lobar, and right lower posterior segmental pulmonary emboli. 2. No right heart strain. ADDENDUM: 06/28/24 [id number] THIS REPORT CONTAINS FINDINGS THAT MAY BE CRITICAL TO PATIENT CARE. The findings were verbally communicated via telephone conference with Charge Nurse Irene Quintero at 2:03 AM CDT on 06/28/2024. The findings were acknowledged and understood. Venous Duplex 06/27/24 17:42 IMPRESSION: 1. Acute deep venous thrombosis is noted extending from the left popliteal vein through the left posterior tibial and peroneal veins. 2. No DVT in the right lower extremity. ADDENDUM: 06/27/24 [id number] THIS REPORT CONTAINS FINDINGS THAT MAY BE CRITICAL TO PATIENT CARE. The findings were verbally communicated via telephone conference with Dr. Ray at 11:35 PM CDT on 06/27/2024. The findings were acknowledged and understood. Head MRI 06/29/24 15:42 IMPRESSION: 1. No evidence of restricted diffusion to suggest acute ischemia. No acute intracranial pathology is seen. 2. Chronic senescent changes as above. 3. Scattered paranasal sinus mucosal disease. KUB X-Ray 07/07/24 15:58 IMPRESSION: 1. Cholelithiasis 2. Findings consistent with a history of constipation. Laboratory Results WBC 14.41 10^3/uL (3.29-11.43) H 07/14/24 04:55 RBC 4.46 10^6/uL (3.85-5.65) 07/14/24 04:55 Hgb 13.70 g/dL (11.27-16.99) 07/14/24 04:55 Hct 40.7 % (36-47) 07/14/24 04:55 MCV 91.3 fl (85-98) 07/14/24 04:55 MCH 30.7 pg (27-33) 07/14/24 04:55 MCHC 33.7 g/dL (30-55) 07/14/24 04:55 RDW 14.5 % (12.1-15.1) 07/14/24 04:55 Plt Count 228 10^3/cmm (157-399) 07/14/24 04:55 MPV 12.6 fL (7.4-10.4) H 07/14/24 04:55 Neut % (Auto) 89.2 % 07/14/24 04:55 Lymph % (Auto) 6.3 % 07/14/24 04:55 Benson % (Auto) 3.8 % 07/14/24 04:55 Eos % (Auto) 0.0 % 07/14/24 04:55 Baso % (Auto) 0.2 % 07/14/24 04:55 Neut # (Auto) 12.85 10^3/uL (1.8-7.7) H 07/14/24 04:55 Lymph # (Auto) 0.9 10^3/uL (0.8-4.8) 07/14/24 04:55 Benson # (Auto) 0.6 10^3/uL (0.2-0.9) 07/14/24 04:55 Eos # (Auto) 0.0 10^3/uL (0.0-0.8) 07/14/24 04:55 Baso # (Auto) 0.0 10^3/uL (0.0-0.1) 07/14/24 04:55 Nucleated RBC % (auto) 0 % 07/14/24 04:55 Nucleated RBCs # 0.0 /100WBC 07/14/24 04:55 ESR 5 mm/hr (0-15) 06/27/24 13:17 D-Dimer 3.13 ug/mLFEU (0-0.59) H 06/27/24 13:17 Sodium 143 mmol/L (136-145) 07/14/24 04:55 Potassium 4.1 mmol/L (3.5-5.1) 07/14/24 04:55 Chloride 107 mmol/L (98-107) 07/14/24 04:55 Carbon Dioxide 23 mmol/L (22-29) 07/14/24 04:55 Anion Gap 17.1 (5-19) 07/14/24 04:55 BUN 18 mg/dL (8-23) 07/14/24 04:55 Creatinine 0.6 mg/dL (0.5-0.9) 07/14/24 04:55 GFR Calculation Not Reportable 07/14/24 04:55 Glucose 132 mg/dL (65-115) H 07/14/24 04:55 Estimat Average Glucose 120 06/27/24 13:17 Hemoglobin A1c 5.8 % (4.0-6.0) 06/27/24 13:17 Calculated Osmolality 300 mOsm/kg (285-295) H 07/14/24 04:55 Calcium 8.8 mg/dL (8.5-10.5) 07/14/24 04:55 Magnesium 1.8 mg/dL (1.7-2.3) 06/28/24 05:03 Iron 72 ug/dL (37-145) 07/08/24 12:52 TIBC 163 mcg/dl 07/08/24 12:52 % Saturation 44.1 % (20-50) 07/08/24 12:52 Unsat Iron Binding 91 ug/dL (112-347) L 07/08/24 12:52 Total Bilirubin 1.3 mg/dL (0.15-1.2) H 07/14/24 04:55 AST 39 U/L (0-32) H 07/14/24 04:55 ALT 41 U/L (0-33) H 07/14/24 04:55 Alkaline Phosphatase 75 U/L (35-105) 07/14/24 04:55 C-Reactive Protein 7.3 mg/L (0.0-4.9) H 06/27/24 13:17 Total Protein 6.7 g/dL (6.6-8.7) 07/14/24 04:55 Albumin 3.9 g/dL (3.5-5.2) 07/14/24 04:55 Globulin 2.8 g/dL (1.3-4.6) 07/14/24 04:55 Vitamin B12 199 pg/mL (232-1245) L 06/27/24 13:17 Procalcitonin 0.06 ng/mL (0-0.5) 06/27/24 13:17 TSH 2.44 uIU/mL (0.27-4.20) 06/27/24 13:17 Random Cortisol 10.88 ug/dL (2.47-19.5) 07/09/24 05:38 Urine Color Dark yellow (Yellow) A 07/07/24 00:15 Urine Appearance Clear (CLEAR) 07/07/24 00:15 Urine pH 6.5 (5-7) 07/07/24 00:15 Ur Specific Onward 1.028 (1.005-1.030) 07/07/24 00:15 Urine Protein Trace (Negative) A 07/07/24 00:15 Urine Glucose (UA) Negative (Normal) 07/07/24 00:15 Urine Ketones 1+ (Negative) H 07/07/24 00:15 Urine Blood Negative (Negative) 07/07/24 00:15 Urine Nitrate Negative (Negative) 07/07/24 00:15 Urine Bilirubin Negative (Negative) 07/07/24 00:15 Urine Urobilinogen 1.0 mg/dL (Negative) 07/07/24 00:15 Ur Leukocyte Esterase Trace (Negative) A 07/07/24 00:15 Urine RBC 0-4 /hpf (0-2) H 07/07/24 00:15 Urine WBC 0-4 /hpf (0-5) H 07/07/24 00:15 Ur Squamous Epith Cells 0-4 /hpf (0-5) H 07/07/24 00:15 Amorphous Sediment Not Reportable 07/07/24 00:15 Urine Bacteria Trace /hpf (NONE) 07/07/24 00:15 Hyaline Casts 5.36 /lpf 06/27/24 12:36 Urine Mucus 2+ /hpf 07/07/24 00:15 Vitals Last Vital Signs Temp 98.0 F 07/14/24 08:00 Pulse 87 07/14/24 08:08 Resp 18 07/14/24 08:08 BP 148/86 07/14/24 08:00 Pulse Ox 97 07/14/24 08:08 O2 Del Method Room Air 07/14/24 08:08 Discharge Plan Discharge Patient Disposition: Home Condition: Stable Prescriptions: No Action No Known Home Medications Patient Instructions: Altered Mental Status (ED), Opioid Safety Coding Level of Care Code Acute Code for Chg Fwd Diagnoses Altered mental status R41.82 Depression with anxiety F41.8 DVT (deep venous thrombosis) I82.409 Pulmonary embolism I26.99 Failure to thrive Generalized weakness R53.1 Encounter for assessment of decision-making capacity Z00.8 B12 deficiency E53.8
--- NOTE | 2024-07-14 11:56 | CTR_ITS ---
PROCEDURE INFORMATION: Exam: CT Abdomen And Pelvis Without Contrast Exam date and time: 07/14/2024 1:37 PM Age: 74 years old Clinical indication: Nausea and vomiting with transaminitis. TECHNIQUE: Imaging protocol: Computed tomography of the abdomen and pelvis without contrast. Radiation optimization: All CT scans at this facility use at least one of these dose optimization techniques: automated exposure control; mA and/or kV adjustment per patient size (includes targeted exams where dose is matched to clinical indication); or iterative reconstruction. COMPARISON: CT abdomen pelvis w con* [id number] 06/09/2024 11:55 AM RADIATION DOSE METRICS: Total DLP (mGy-cm): 293.42 FINDINGS: Lungs: The lung bases are unremarkable. Heart: No pericardial effusion. Diaphragm: No hiatal hernia. Liver: The liver is unremarkable. Gallbladder and biliary ducts: The gallbladder is prominently distended. There is an extremely large stone in the proximal gallbladder measuring 4.2 cm. Additional smaller stones are seen. The gallbladder wall appears thickened and edematous. Recommend ultrasound to assess for acute cholecystitis. Pancreas: The pancreas is unremarkable. Spleen: The spleen is unremarkable. Adrenal glands: The adrenal glands are unremarkable. Kidneys and ureters: The kidneys are unremarkable. Stomach and bowel: The stomach and small bowel are unremarkable. There is a large fecal ball in the rectum measuring 9.3 cm. There is moderate stool in the remaining colon. Appendix: The appendix is unremarkable. Intraperitoneal space: No free intraperitoneal air is seen. Trace free pelvic fluid. Vasculature: No abdominal aortic aneurysm. Lymph nodes: No retroperitoneal lymphadenopathy. Urinary bladder: The bladder is unremarkable. Reproductive: The uterus and adnexa are grossly unremarkable for age. Bones/joints: No acute fracture is seen. Soft tissues: No significant subcutaneous soft tissue swelling. CT/CT abdomen pelvis wo con [id number] IMPRESSION: 1. The gallbladder is prominently distended. There is an extremely large stone in the proximal gallbladder measuring 4.2 cm. Additional smaller stones are seen. The gallbladder wall appears thickened and edematous. Recommend ultrasound to assess for acute cholecystitis. 2. Findings concerning for fecal impaction and constipation. 3. Trace free pelvic fluid.
[2024-07-14] MEDS: sodium chloride 0.9% 1,000 ML 50 ML IV (12:17)
--- NOTE | 2024-07-14 14:25 | MRR_ITS ---
PROCEDURE INFORMATION: Exam: MR Abdomen Without Contrast, Biliary System Exam date and time: 07/14/2024 3:30 PM Age: 74 years old Clinical indication: Abdominal tenderness and nausea; Additional info: Large gallstone with acute cholecystitis. TECHNIQUE: Imaging protocol: MR of the abdomen without contrast. Exam focused on the biliary system and pancreatic ducts. Routine 3D-MRCP images were acquired and processed without radiologist supervision. COMPARISON: CT abdomen pelvis con [id number] 07/14/2024 1:37 PM FINDINGS: Liver: The liver is normal in size with no fatty changes with no mass. Gallbladder and biliary ducts: There are gallstones in the gallbladder including the largest 4 x 2 x 2.5 cm stone in anti dependent position adjacent to the gallbladder neck, and the 2nd largest 0.8 x 0.7 cm stone in the fundus (series 501, image 18). The gallbladder is elongated to 12 cm with no abnormal distension (maximum transverse diameter of 3.6 cm) with normal wall thickness of 2 mm, and 4 mm thick layer of pericholecystic fluid suggestive of acute cholecystitis. There is no biliary dilatation. The common bile duct measures 4 mm with no gallstones. There is focal narrowing of the common bile duct at the level of the gallbladder neck possibly due to mass effect of the large gallstone. There is no abnormal dilatation of intrahepatic bile ducts to suggest biliary obstruction. Pancreas: Unremarkable. No ductal dilation. Intraperitoneal space: There is a trace amount of free intraperitoneal fluid. MR/MR MRCP [id number] IMPRESSION: Cholelithiasis including the largest 4 cm gallstone in the anti dependent area within the gallbladder adjacent to the neck. Pericholecystic fluid suspicious for acute cholecystitis. There is mass effect on the common bile duct at the level of the gallbladder neck containing a large gallstone with no obstruction. The common bile duct both above and below the level of the gallbladder neck is of normal caliber. No choledocholithiasis.
[2024-07-14] MEDS: piperacillin-tazobactam 3.375 GM in sodium chloride 0.9% (plus) 50 ML IV ×2 (14:45→22:18)
--- NOTE | 2024-07-14 15:00 | P.PN_ITS ---
Subjective 2 Subjective: Today morning on examination patient complaining of mild abdominal pain along with episode of vomiting. She is unable to maintain her oral intake as per the patient. Medications: Reviewed: Yes Vitals/I&O/Wt Last Vital Signs Temp 98.0 F 07/14/24 12:00 Pulse 105 H 07/14/24 12:00 Resp 14 07/14/24 12:00 BP 113/68 07/14/24 12:00 Pulse Ox 96 07/14/24 12:00 O2 Del Method Room Air 07/14/24 12:00 07/14/24 07/14/24 07/14/24 06:59 14:59 22:59 Intake Total 1050 / 1050 Output Total Balance 1050 / 1050 Weight last 48 hrs Weight 42.955 kg Weight 41.912 kg Physical Exam 2 Narrative: General: No acute distress, AO x 2 to 3, slow to respond, chronically sick appearing, thin built HEENT: PERRLA, pupils bilaterally equal and reactive Chest: Normal vesicular breath sounds, no added sounds, equal good air entry bilaterally CVS: S1-S2 regular, no murmurs, no tachycardia, no gallops, no rubs Abdomen: Bowel sounds present, mild tenderness in right upper quadrant Neuro: No focal deficits, no facial deformity, AO x3, power 5/5 in all limbs Urinary Catheter Management: Silva: Cath Placed During This Visit: yes, but has since been removed by the nurse Reason for Continuing Indwelling Catheter: Acute Urinary Retention or Obstruction Urinary Catheter Date of Insertion: 07/07/24 Urinary Catheter Time of Insertion: 14:30 Date Urinary Catheter Removed: 07/10/24 Time Urinary Catheter Discontinued: 13:23 Data 07/14/24 04:55 07/14/24 04:55 A&P Assessment and plan (1) Right upper quadrant abdominal pain: Associated with nausea and vomiting. With slight leukocytosis today along with transaminitis and elevated bilirubin. Alkaline phosphatase level normal. CT abdomen pelvis done concerning for significant cholelithiasis with gallstone measuring 4.2 cm along with thickened gallbladder concerning for acute cholecystitis. (2) Cholecystitis with cholelithiasis: Keep n.p.o. Concerning for obstructive gallbladder. Check MRCP. Check blood culture, start on IV Zosyn. Continue with NS at 50 cc/h. (3) Altered mental status: Most likely in setting of worsening of patient's baseline dementia in setting of new environment when she moved to live with her stepdaughter. No concerns for infectious encephalopathy on admission. Patient has been in hospital for more than 10 days of IV antibiotics and has remained afebrile. UA done on admission negative for concern for UTI. Patient remains on room air so low concerns for pneumonia. Stroke ruled out on admission with negative CT head. MRI done during admission shows chronic age-related changes without concern for acute ischemia. Appreciate psych recommendations. Switching to Remeron as below. Patient's lethargy is improving after stopping Zyprexa. Continue with Namenda twice daily along with mirtazapine 30 mg oral daily. Patient having mild agitation occasionally. Start on Zyprexa Zydis 0.25 mg at low-dose. (4) Depression with anxiety: (5) DVT (deep venous thrombosis): Appreciate lower limb Dopplers during her admission. With concerns for PE on CTA. (6) Pulmonary embolism: Remains on room air. Received 10 mg twice daily of Eliquis till 07/05. Start on full dose Lovenox 1 mg/kg body weight every 12 hourly. Will transition over to oral Eliquis at 5 mg twice daily on discharge. (7) Failure to thrive: With concern for malnourishment. Decreased appetite. Also concern for vitamin B12 deficiency. Appreciate iron panel. Continue with protein shake with each meal. Continue the Remeron. Continue with Megace. Qualifiers: Failure to thrive age range: in adult Qualified Code(s): R62.7 - Adult failure to thrive (8) Generalized weakness: (9) Encounter for assessment of decision-making capacity: (10) B12 deficiency: (11) Fecal impaction: Seen on CT abdomen pelvis. Enema. Repeat KUB in AM. Plan Urinary retention: Continue with Silva catheterization for now. Add Flomax 0.4 mg daily. Will retry voiding trial next 24 to 48 hours. Constipation: Continue docusate senna 1 tablet daily. Last bowel movement was 07/04. Discharge plan: Given all of the above DPOA paperwork with guardianship going to patient's stepdaughter Monica been worked up. Patient would benefit from placement to SNF as family will not be able to take care of her needs at home. Awaiting level 2. Patient care discussed in detail with patient's stepdaughter over the phone. All the questions were answered. Attestations 2 Medical Necessity Statement*: Requires further hospitalization for management of acute cholecystitis while obstructive gallbladder pathology is ruled out, new PE and DVT in a patient level 2 is awaited in setting of worsening dementia. Diagnoses Right upper quadrant abdominal pain R10.11 Cholecystitis with cholelithiasis K80.10 Altered mental status R41.82 Depression with anxiety F41.8 DVT (deep venous thrombosis) I82.409 Pulmonary embolism I26.99 Failure to thrive in adult R62.7 Failure to thrive age range: in adult Generalized weakness R53.1 Encounter for assessment of decision-making capacity Z00.8 B12 deficiency E53.8 Fecal impaction K56.41
[2024-07-14] MEDS: haloperidol inj 5 mg/mL INJ 1 mL 2 MG IVP (15:13)
[2024-07-14] MEDS: sodium chloride 0.9% 500 ML 999 ML IV (16:40)
--- NOTE | 2024-07-14 19:01 | PM.CCNAC ---
Critical Care Event Note Got a call from the nurse that patient's blood pressure was 80 systolic. Requested for a 500 cc normal saline bolus. Patient was given a 500 cc bolus after which her blood pressures improved to 100 mmHg systolics. Patient later received enema after which she had multiple bowel movements. During bowel movements she had 2 episodes of syncope. She regained consciousness after being placed back in the bed. Repeat blood pressure 76 systolics. Patient is awake and alert able to have complete conversation at her baseline mentation. Concerns for septic shock given new diagnosis of acute cholecystitis. MRCP negative for obstructive pathology. Repeat 500 cc IV bolus. Recheck CBC, lactate. Transfer to ICU given soft blood pressures. Keep mean artery pressure 65. If needed will start Levophed. The high probability of a clinically significant, sudden or life threatening deterioration of the patient's [cardiac, GI] system(s) required my full and direct attention, intervention and personal management. The critical care time is as shown. This time is in addition to time spent performing any reported procedures but includes the following: [x] Data and vital sign review and interpretation [x] Patient assessment, examination and intervention [x] Documentation [x] Medication orders and management Critical Care Time Code activated: No Critical Care Time (min): 60 Coding Level of Care Code Critical Care Time Spent (min) 60
[2024-07-14 19:07] LABS: Basophils # 0.1 10^3/uL (0.0-0.1); Basophils % 0.3 %; Eosinophils # 0.1 10^3/uL (0.0-0.8); Eosinophils % 0.3 %; Hematocrit 40.5 % (36-47); Lymphocytes # 2.4 10^3/uL (0.8-4.8); Lymphocytes % 15.1 %; Mean Corpuscular HGB Conc 33.1 g/dL (30-55); Mean Corpuscular Volume 93.8 fl (85-98); Mean Platelet Volume 12.1 fL (7.4-10.4); Monocytes # 0.9 10^3/uL (0.2-0.9); Monocytes % 5.7 %; Neutrophils # 12.25 10^3/uL (1.8-7.7); Neutrophils % 78.3 %; Nucleated Red Blood Cells % 0 %; Platelet Count 219 10^3/cmm (157-399); Red Blood Count 4.32 10^6/uL (3.85-5.65); Red Cell Distribution Width 14.6 % (12.1-15.1); White Blood Count 15.65 10^3/uL (3.29-11.43)
[2024-07-14 19:24] LABS: Lactate (Lactic Acid level) 3.8 mmol/L (0.5-2.2)
[2024-07-14] MEDS: mirtazapine 15 mg Tablet 30 MG PO (20:18)
[2024-07-14] MEDS: OLANZapine 5 mg TABLET 2.5 MG PO (20:18)
[2024-07-14] MEDS: ondansetron 2 mg/ML SDV 2 mL 4 MG IVP (23:02)
[2024-07-15] VITALS (132 sets, daily range): BP systolic 90–135; BP diastolic 53–74; PULSE 76–121; RESP 11–29; TEMP 36.6–37.9; O2SAT 94–99
[2024-07-15] MEDS: lactated ringers 1,000 ML 999 ML IV ×2 (00:44→01:42)
--- NOTE | 2024-07-15 01:06 | P.PN_ITS ---
Subjective 2 Subjective: I was contacted by the nurse regarding hypotension and tachycardia reviewing old records patient has acute cholecystitis but also recent pulmonary embolism and DVT diagnosed this admission. She has acute DVT in the left popliteal, left posterior tibial and peroneal veins.No heart right heart strain. Patient is on antibiotics for acute cholecystitis. Surgery currently held due to acute pulmonary emboli Patient tells me that she is not acutely nauseated currently but she has not been trying to eat the food Vitals/I&O/Wt Last Vital Signs Temp 98.0 F 07/14/24 19:43 Pulse 112 H 07/15/24 00:00 Resp 15 07/15/24 00:00 BP 117/69 07/15/24 00:00 Pulse Ox 97 07/15/24 00:00 O2 Del Method Room Air 07/15/24 00:00 07/14/24 07/14/24 07/15/24 14:59 22:59 06:59 Intake Total 1050 / 1050 1200.833 / 2250.833 Balance 1050 / 1050 1200.833 / 2250.833 Weight last 48 hrs Weight 42.955 kg Weight 41.912 kg Physical Exam 2 Narrative: General Well-developed thin female in no acute cardiopulmonary distress Neuro she is able to tell me that she has clots in her legs and lungs. GI: OTHER: Abdomen soft nontender and no right upper quadrant tenderness currently Urinary Catheter Management: Silva: Cath Placed During This Visit: yes, but has since been removed by the nurse Reason for Continuing Indwelling Catheter: Acute Urinary Retention or Obstruction Urinary Catheter Date of Insertion: 07/07/24 Urinary Catheter Time of Insertion: 14:30 Date Urinary Catheter Removed: 07/10/24 Time Urinary Catheter Discontinued: 13:23 Data 07/14/24 18:52 07/14/24 04:55 Micro: Microbiology 07/14/24 18:54 Blood Culture - Preliminary Blood SPECIMEN COLLECTED 07/14/24 18:52 Blood Culture - Preliminary Blood SPECIMEN COLLECTED A&P Assessment and plan (1) Cholecystitis with cholelithiasis: Patient is on antibiotics. Will add ursodiol. Monitor white count and biliary labs. If not improving I favor stopping anticoagulation and proceeding with lap belle then resuming anticoagulation (2) Pulmonary embolism: As above she has small lower extremity DVT and no asymmetry or tenderness in the legs today. Oxygen saturation 97% on room air and hemodynamically stable. Will order an echocardiogram for the morning (3) Hypotension: Bolus 1 L lactated Ringer's. BUN is 18 creatinine 0.6 up from her baseline 8 and 0.5. Additionally lactic acid 3.8. Patient is not on metformin. Due to tachycardia and relative hypotension we will give a second liter of LR following the first. Recheck labs and lactic acid in the morning Attestations 2 Medical Necessity Statement*: Patient's hospitalization will span greater than 2 midnights Coding Level of Care Code Acute Code for Chg Fwd Diagnoses Cholecystitis with cholelithiasis K80.10 Pulmonary embolism I26.99 Hypotension I95.9
--- NOTE | 2024-07-15 01:16 | USCV_ITS ---
Monica Taylor Age: 74 Gender: F : 1950 Exam Date: 07/15/2024 08:05 Ordering Phys: Lucas Rushing MD Technologist: [place] [facility] [place]: cp BP: 119 / 68 HR: 97 Rhythm: Sinus Technical Quality: Adequate MEASUREMENTS (Male / Female) Normal Values 2D ECHO LV Diastolic Diameter PLAX 4.0 cm 4.2 - 5.9 / 3.9 - 5.3 cm IVS Diastolic Thickness 1.0 cm 0.6 - 1.0 / 0.6 - 0.9 cm IVS Systolic Thickness 1.2 cm LVPW Diastolic Thickness 1.1 cm 0.6 - 1.0 / 0.6 - 0.9 cm LVPW Systolic Thickness 1.1 cm LVOT Diameter 1.8 cm LV Ejection Fraction 2D Teich 39.2 % LV Ejection Fraction MOD 4C 74.3 % LV Ejection Fraction MOD 2C 74.6 % LV Ejection Fraction 2C AL 74.7 % LA Diameter 2.5 cm RA Systolic Volume 4C AL 18.5 ml RA Systolic Volume 4C MOD 17.8 ml Aorta at Sinotubular Diameter 3.0 cm IVC Diameter 1.7 cm M-MODE LA Ao Ratio MM 1.1 AV Cusp Separation MM 2.0 cm DOPPLER AV Peak Velocity 129.0 cm/s LVOT Peak Velocity 107.0 cm/s AV Area Cont Eq vti 2.3 cm squared AV Area Cont Eq pk 2.2 cm squared MV Peak Velocity 99.0 cm/s MV Area PHT 4.0 cm squared Mitral E to A Ratio 0.7 TV Peak Velocity 206.0 cm/s TR Peak Velocity 222.0 cm/s TR Peak Gradient 19.7 mmHg TV Peak E Velocity 73.0 cm/s Right Atrial Pressure 3.0 mmHg Pulmonary Artery Systolic Pressu 22.7 mmHg PV Peak Velocity 82.0 cm/s FINDINGS Left Ventricle Normal left ventricular size, systolic function and wall thickness, with no regional wall motion abnormalities. Left ventricular ejection fraction is estimated at 60 %. Grade I/IV diastolic dysfunction (abnormal relaxation filling pattern), normal to mildly elevated filling pressures. Right Ventricle The right ventricle is normal in size and function. Right Atrium The right atrium is normal in size. Left Atrium The left atrium is normal in size. Mitral Valve Structurally normal mitral valve without significant stenosis or prolapse. There is no mitral regurgitation. Aortic Valve Moderate aortic valve calcification. No aortic valve stenosis. Tricuspid Valve Structurally normal tricuspid valve without significant stenosis or regurgitation. Pulmonary artery systolic pressure is normal. Pulmonic Valve Structurally normal pulmonic valve without significant stenosis. There is no pulmonic regurgitation. Pericardium Normal pericardium without effusion. Aorta Normal ascending aorta dimension. IVC The inferior vena cava appears normal. CONCLUSIONS Normal left ventricular size, systolic function and wall thickness, with no regional wall motion abnormalities. Left ventricular ejection fraction is estimated at 60 %. Grade I/IV diastolic dysfunction (abnormal relaxation filling pattern), normal to mildly elevated filling pressures. There is no pericardial effusion. Right atrial pressure is around 5 mm of mercury. Blanca Paige MD (Electronically Signed) Final Date: 22 July 2024 20:39 S
[2024-07-15] MEDS: magnesium sulfate premix 2 GM/50 ML PIGGYBACK IV (02:02)
[2024-07-15 03:10] LABS: Basophils % 0.2 %; Eosinophils % 0.1 %; Hematocrit 38.6 % (36-47); Lymphocytes # 0.9 10^3/uL (0.8-4.8); Lymphocytes % 5.2 %; Mean Corpuscular HGB Conc 33.7 g/dL (30-55); Mean Corpuscular Hemoglobin 31.6 pg (27-33); Mean Corpuscular Volume 93.7 fl (85-98); Mean Platelet Volume 12.7 fL (7.4-10.4); Monocytes # 0.8 10^3/uL (0.2-0.9); Monocytes % 4.9 %; Neutrophils # 15.02 10^3/uL (1.8-7.7); Neutrophils % 89.2 %; Nucleated Red Blood Cells % 0 %; Platelet Count 186 10^3/cmm (157-399); Red Blood Count 4.12 10^6/uL (3.85-5.65); Red Cell Distribution Width 14.8 % (12.1-15.1); White Blood Count 16.83 10^3/uL (3.29-11.43)
[2024-07-15 03:50] LABS: Alanine Aminotransferase 34 U/L (0-33); Alkaline Phosphatase 61 U/L (35-105); Anion Gap 12.1 (5-19); Aspartate Amino Transferase 28 U/L (0-32); Blood Urea Nitrogen 14 mg/dL (8-23); Calcium 8.1 mg/dL (8.5-10.5); Carbon Dioxide 24 mmol/L (22-29); Chloride 111 mmol/L (98-107); Creatinine Clr Calc Pharmacy 43.1041; Globulin 2.2 g/dL (1.3-4.6); Glucose 136 mg/dL (65-115); Lactate (Lactic Acid level) 2.3 mmol/L (0.5-2.2); Osmolality Calculated 299 mOsm/kg (285-295); Potassium 4.1 mmol/L (3.5-5.1); Sodium 143 mmol/L (136-145); Total Bilirubin 1.4 mg/dL (0.15-1.2); Total Protein 5.2 g/dL (6.6-8.7)
[2024-07-15] MEDS: piperacillin-tazobactam 3.375 GM in sodium chloride 0.9% (plus) 50 ML IV ×3 (05:58→23:34)
[2024-07-15] MEDS: memantine 5 mg tablet 10 MG PO ×2 (08:22→17:12)
[2024-07-15] MEDS: apixaban 5 mg Tablet PO (08:22)
[2024-07-15] MEDS: cyanocobalamin 1,000 mcg Tablet 1000 MCG PO (08:23)
[2024-07-15] MEDS: tamsulosin 0.4 mg Capsule PO (08:24)
[2024-07-15] MEDS: sennosides-docusate Tablet 1 TAB PO (08:24)
[2024-07-15] MEDS: lactulose oral liq 20 gm/30 mL UDC PO (08:25)
--- NOTE | 2024-07-15 08:47 | PC.SOCIAL ---
IMM Update pg 2 of IMM Not updated w/ patient as guardianship and level 2 are pending @ this time.
[2024-07-15] MEDS: lactated ringers 1,000 ML 50 ML IV (10:21)
[2024-07-15] MEDS: heparin drip 25,000 UNIT/500 ML PREMIX 12.03 UNIT IV (10:22)
[2024-07-15 10:57] LABS: Partial Thromboplastin Time 26.3 SECONDS (23.9-36.7)
--- NOTE | 2024-07-15 12:15 | PM.PN ---
Subjective Subjective: She is not feeling well. Cannot define any specific complaints. No localized pain. Vitals/I&O/Wt Last Vital Signs Temp 98.6 F 07/15/24 08:30 Pulse 78 07/15/24 11:40 Resp 15 07/15/24 11:40 BP 124/66 07/15/24 11:40 Pulse Ox 97 07/15/24 11:40 O2 Del Method Room Air 07/15/24 10:00 07/14/24 07/15/24 07/15/24 22:59 06:59 14:59 Intake Total 1200.833 / 2250.833 2100 / 4350.833 50 / 50 Output Total 425 / 425 Balance 1200.833 / 2250.833 2100 / 4350.833 -375 / -375 Weight last 48 hrs Weight 42.5 kg Weight 42.955 kg Physical Exam Narrative: Accompanied by her stepdaughter. Const: COMMON NORMALS: patient oriented x3 and alert GENERAL APPEARANCE: cooperative ORIENTATION/CONSCIOUSNESS: Yes awake HENMT: COMMON NORMALS: oropharynx normal Neck/C-Spine: COMMON NORMALS: no JVD Resp: COMMON NORMALS: normal respiratory effort and clear to auscultation bilaterally AUSCULTATION: clear to auscultation bilaterally Cardio: COMMON NORMALS: no JVD, regular rhythm, S1 normal heart sound present, S2 normal heart sound present and No murmurs present (Cardio) RHYTHM: regular rhythm HEART SOUNDS: S1 normal heart sound present and S2 normal heart sound present GI: COMMON NORMALS: Normal to inspection, nondistended, normoactive bowel sounds present and Soft to palpation PALPATION: Yes Soft to palpation and Yes Tenderness to palpation present (GI) Details: RUQ Extremity: COMMON NORMALS: no joint enlargement and no pedal edema Neuro: COMMON NORMALS: patient oriented x3 and moves all extremities SENSORIUM/ORIENTATION: Yes alert Skin: COMMON NORMALS: no rashes or lesions noted GENERAL SKIN EXAM: no rashes or lesions noted Urinary Catheter Management: Silva: Cath Placed During This Visit: yes, but has since been removed by the nurse Reason for Continuing Indwelling Catheter: Acute Urinary Retention or Obstruction Urinary Catheter Date of Insertion: 07/07/24 Urinary Catheter Time of Insertion: 14:30 Date Urinary Catheter Removed: 07/10/24 Time Urinary Catheter Discontinued: 13:23 Data 07/15/24 02:30 07/15/24 02:30 Micro: Microbiology 07/14/24 18:54 Blood Culture - Preliminary Blood SPECIMEN COLLECTED 07/14/24 18:52 Blood Culture - Preliminary Blood SPECIMEN COLLECTED A&P Assessment and plan (1) Cholecystitis with cholelithiasis: Reviewed vitals, CBC, PTT, CMP. Noted worsening T. bili up to 1.4. Alk phos normal at 61. Reviewed MRCP, noted large gallbladder stone with mass effect onto CBD with surrounding findings suggestive of cholecystitis. Discussed with her and her daughter. Discussed consideration of options surgery was considered last night and she was found to be too ill at current time with PEs and needing anticoagulation, so surgery was deferred at least initially. Discussed consideration of further options possible IR decompression, necessitating also holding anticoagulation, with increased risk of further VTE, alternative option of placement of IVC filter before hand. She expresses that she does not want to have surgery if she could. Discussed with her she may be at risk of further deterioration despite antibiotic treatment. Although so far has improved in terms of blood pressure. Cytosis is about the same. 16.8 on review of CBC. I could not get a hold of interventional radiologist today, will try to discuss again, continue to biotics in the meantime. Continue to monitor into intensive care unit, avoid hypotension. In case of need of procedure Florinaquis for now switched over to heparin drip as per discussion with her and her daughter. Monitor for development of Mirizzi syndrome. Patient is on antibiotics. ursodiol. Monitor white count and biliary labs. Discussed with nursing, piano case and bench assembler. (2) Pulmonary embolism: Switch to heparin drip. Monitor for risk of bleeding with therapeutic anticoagulation. Monitor PTT. Monitor oxygenation, blood pressures. Echocardiogram has been performed, pending. Reviewed. (3) Hypotension: Resumed on low rate of LR. Risk of fluid overload. Maintain MAP 65 mmHg or above. Attestations Medical Necessity Statement*: Continue admission for assessment management of cholecystitis. and High MDM includes amount and/or complexity of data reviewed/ordered [ resulted lab(s)/test(s), ordered lab(s)/test(s) and other healthcare professional discussion] and described risk of complication, morbidity or mortality of management as documented Diagnoses Cholecystitis with cholelithiasis K80.10 Pulmonary embolism I26.99 Hypotension I95.9
[2024-07-15 17:25] LABS: Partial Thromboplastin Time 38.1 SECONDS (23.9-36.7)
--- NOTE | 2024-07-15 19:26 | PC.NURSE ---
Shift SUmmary: uneventful shift. rested in bed for most of the day. up to the bedside commode 3 times. Voided 700mL. Started on heparin drip.
[2024-07-15 23:43] LABS: Partial Thromboplastin Time 60.4 SECONDS (23.9-36.7)
[2024-07-16] VITALS (31 sets, daily range): BP systolic 106–154; BP diastolic 62–90; PULSE 82–129; RESP 12–24; TEMP 36.6–37.3; O2SAT 96–98
--- NOTE | 2024-07-16 05:31 | PC.NURSE ---
Addendum entered by GEOVANNA Valdes 07/16/24 06:09: Patient voided 600 mls Original Note: Bladder scan Patient had not voided during shift. Bladder scan showed approximately 540 mls of urine in bladder. Placed patient on bedside commode and patient stated that she did not need to pee. Attempted to get her to try and patient stated that she couldn't go.
[2024-07-16] MEDS: piperacillin-tazobactam 3.375 GM in sodium chloride 0.9% (plus) 50 ML IV ×3 (05:48→21:51)
[2024-07-16] MEDS: lactated ringers 1,000 ML 50 ML IV (05:48)
[2024-07-16 06:04] LABS: Basophils % 0.3 %; Eosinophils # 0.1 10^3/uL (0.0-0.8); Eosinophils % 0.9 %; Hematocrit 35.8 % (36-47); Lymphocytes # 0.9 10^3/uL (0.8-4.8); Lymphocytes % 7.1 %; Mean Corpuscular HGB Conc 34.1 g/dL (30-55); Mean Corpuscular Hemoglobin 31.8 pg (27-33); Mean Corpuscular Volume 93.2 fl (85-98); Mean Platelet Volume 12.5 fL (7.4-10.4); Monocytes # 0.7 10^3/uL (0.2-0.9); Monocytes % 5.5 %; Neutrophils # 11.28 10^3/uL (1.8-7.7); Neutrophils % 85.7 %; Nucleated Red Blood Cells % 0 %; Platelet Count 174 10^3/cmm (157-399); Red Blood Count 3.84 10^6/uL (3.85-5.65); Red Cell Distribution Width 14.6 % (12.1-15.1); White Blood Count 13.17 10^3/uL (3.29-11.43)
[2024-07-16 06:23] LABS: Alanine Aminotransferase 26 U/L (0-33); Albumin Level 2.9 g/dL (3.5-5.2); Alkaline Phosphatase 64 U/L (35-105); Anion Gap 11.5 (5-19); Aspartate Amino Transferase 16 U/L (0-32); Blood Urea Nitrogen 9 mg/dL (8-23); Calcium 7.9 mg/dL (8.5-10.5); Carbon Dioxide 25 mmol/L (22-29); Chloride 108 mmol/L (98-107); Creatinine Clr Calc Pharmacy 43.1493; Glucose 103 mg/dL (65-115); Osmolality Calculated 291 mOsm/kg (285-295); Potassium 3.5 mmol/L (3.5-5.1); Sodium 141 mmol/L (136-145); Total Bilirubin 1.6 mg/dL (0.15-1.2); Total Protein 4.9 g/dL (6.6-8.7)
[2024-07-16] MEDS: tamsulosin 0.4 mg Capsule PO (08:44)
[2024-07-16] MEDS: megestrol 400 mg/10 mL UDC PO (08:44)
[2024-07-16] MEDS: sennosides-docusate Tablet 1 TAB PO (08:44)
[2024-07-16] MEDS: lactulose oral liq 20 gm/30 mL UDC PO ×2 (08:44→20:49)
[2024-07-16] MEDS: memantine 5 mg tablet 10 MG PO ×2 (08:44→18:12)
[2024-07-16] MEDS: cyanocobalamin 1,000 mcg Tablet 1000 MCG PO (08:44)
--- NOTE | 2024-07-16 12:12 | PM.PN ---
Subjective Subjective: She does not seem to remember me from yesterday, states she has been a little bit hazy . States that it is not right , that her IVs are not working, and that she wants to get out of here. Vitals/I&O/Wt Last Vital Signs Temp 98.9 F 07/16/24 07:30 Pulse 129 H 07/16/24 09:56 Resp 18 07/16/24 09:56 BP 129/81 07/16/24 08:00 Pulse Ox 96 07/16/24 09:56 O2 Del Method Room Air 07/16/24 09:56 07/15/24 07/16/24 07/16/24 22:59 06:59 14:59 Intake Total 135.413 / 465.208 4649.021 / 1386.434 30 / 30 Output Total 275 / 700 600 / 1300 200 / 200 Balance -139.587 / -514.587 601.021 / 86.434 -170 / -170 Weight last 48 hrs Weight 43 kg Weight 42.5 kg Physical Exam Narrative: Accompanied by her stepdaughter. Const: COMMON NORMALS: alert GENERAL APPEARANCE: cooperative ORIENTATION/CONSCIOUSNESS: Yes awake HENMT: COMMON NORMALS: oropharynx normal Neck/C-Spine: COMMON NORMALS: no JVD Resp: COMMON NORMALS: normal respiratory effort and clear to auscultation bilaterally AUSCULTATION: clear to auscultation bilaterally Cardio: COMMON NORMALS: no JVD, regular rhythm, S1 normal heart sound present, S2 normal heart sound present and No murmurs present (Cardio) RHYTHM: regular rhythm HEART SOUNDS: S1 normal heart sound present and S2 normal heart sound present GI: COMMON NORMALS: Normal to inspection, nondistended, normoactive bowel sounds present and Soft to palpation PALPATION: Yes Soft to palpation and Yes Tenderness to palpation present (GI) Extremity: COMMON NORMALS: no joint enlargement and no pedal edema Neuro: COMMON NORMALS: moves all extremities SENSORIUM/ORIENTATION: Yes alert Psych: MOOD & AFFECT: Yes anxious Skin: COMMON NORMALS: no rashes or lesions noted GENERAL SKIN EXAM: no rashes or lesions noted Urinary Catheter Management: Silva: Cath Placed During This Visit: yes, but has since been removed by the nurse Reason for Continuing Indwelling Catheter: Acute Urinary Retention or Obstruction Urinary Catheter Date of Insertion: 07/07/24 Urinary Catheter Time of Insertion: 14:30 Date Urinary Catheter Removed: 07/10/24 Time Urinary Catheter Discontinued: 13:23 Data 07/16/24 05:37 07/16/24 05:37 Micro: Microbiology 07/14/24 18:54 Blood Culture - Preliminary Blood NEGATIVE TO DATE 07/14/24 18:52 Blood Culture - Preliminary Blood NEGATIVE TO DATE A&P Assessment and plan (1) Cholecystitis with cholelithiasis: Reviewed vitals, CBC, PTT, CMP. Noted some improvement in leukocytosis down to 13. She is having some tachycardia 100s. Afebrile. T. bili is without change at 1.6. Alk phos without elevation. Still some abdominal tenderness. Discussed with interventional radiologist, space is limited in the gallbladder by the large stone. But could attempt placement of pigtail catheter if it came to that. She has not been wanting to have surgery or any procedure. Continue IV antibiotics at this time. Transfer out of ICU. In case of need of procedure Eliquis for now switched over to heparin drip as per discussion with her and her daughter. Monitor for development of Mirizzi syndrome. Will need follow-up with surgery for consideration of cholecystectomy. Patient is on antibiotics. ursodiol. Monitor white count and biliary labs. Discussed with machine adjuster leader case trim. (2) Pulmonary embolism: Reviewed CBC, hemoglobin staying slightly. Noted tachycardia today heart rate in the low 100s. Reviewed PTT. Maintain heparin for now. Monitor for bleeding. Monitor PTT. Keep heparin for now in case further need for gallbladder drainage with IR. Switch to heparin drip. Monitor for risk of bleeding with therapeutic anticoagulation. Monitor PTT. Monitor oxygenation, blood pressures. Echocardiogram has been performed, pending. Reviewed. (3) Hypotension: Resumed on low rate of LR. Risk of fluid overload. Maintain MAP 65 mmHg or above. Attestations Medical Necessity Statement*: Continue admission for assessment and management of cholecystitis with large stone, limited goals of care in a lady with PE, on anticoagulation. and High MDM includes amount and/or complexity of data reviewed/ordered [ resulted lab(s)/test(s), ordered lab(s)/test(s) and other healthcare professional discussion] and described risk of complication, morbidity or mortality of management as documented Diagnoses Cholecystitis with cholelithiasis K80.10 Pulmonary embolism I26.99 Hypotension I95.9
[2024-07-16 13:35] LABS: Partial Thromboplastin Time 42.2 SECONDS (23.9-36.7)
--- NOTE | 2024-07-16 14:06 | PC.NURSE ---
PTT value finally resulted: 42.2. Rate increased per protocol, see MAR.
[2024-07-16 18:35] LABS: Partial Thromboplastin Time 55.8 SECONDS (23.9-36.7)
[2024-07-16] MEDS: heparin drip 25,000 UNIT/500 ML PREMIX 14.7 UNIT IV (18:59)
[2024-07-16] MEDS: OLANZapine 5 mg TABLET 2.5 MG PO (20:49)
[2024-07-16] MEDS: mirtazapine 15 mg Tablet 30 MG PO (20:49)
[2024-07-17] VITALS (11 sets, daily range): BP systolic 98–126; BP diastolic 42–74; PULSE 85–112; RESP 14–17; TEMP 36.9–37.4; O2SAT 94–96
[2024-07-17] MEDS: lactated ringers 1,000 ML 50 ML IV ×2 (00:05→23:08)
[2024-07-17 00:55] LABS: Basophils # 0.1 10^3/uL (0.0-0.1); Basophils % 0.3 %; Eosinophils # 0.2 10^3/uL (0.0-0.8); Eosinophils % 1.2 %; Lymphocytes # 0.8 10^3/uL (0.8-4.8); Lymphocytes % 5.7 %; Mean Corpuscular HGB Conc 33.7 g/dL (30-55); Mean Corpuscular Hemoglobin 30.9 pg (27-33); Mean Corpuscular Volume 91.6 fl (85-98); Mean Platelet Volume 12.3 fL (7.4-10.4); Monocytes # 0.8 10^3/uL (0.2-0.9); Monocytes % 5.8 %; Neutrophils % 86.4 %; Nucleated Red Blood Cells % 0 %; Platelet Count 182 10^3/cmm (157-399); Red Blood Count 3.82 10^6/uL (3.85-5.65); Red Cell Distribution Width 14.6 % (12.1-15.1); White Blood Count 14.48 10^3/uL (3.29-11.43)
[2024-07-17 01:08] LABS: Partial Thromboplastin Time 57.9 SECONDS (23.9-36.7)
[2024-07-17 01:15] LABS: Alanine Aminotransferase 20 U/L (0-33); Albumin Level 2.9 g/dL (3.5-5.2); Alkaline Phosphatase 63 U/L (35-105); Anion Gap 10.3 (5-19); Aspartate Amino Transferase 13 U/L (0-32); Blood Urea Nitrogen 7 mg/dL (8-23); Carbon Dioxide 27 mmol/L (22-29); Chloride 107 mmol/L (98-107); Creatinine Clr Calc Pharmacy 43.1493; Glucose 96 mg/dL (65-115); Osmolality Calculated 290 mOsm/kg (285-295); Potassium 3.3 mmol/L (3.5-5.1); Sodium 141 mmol/L (136-145); Total Bilirubin 1.4 mg/dL (0.15-1.2); Total Protein 4.9 g/dL (6.6-8.7)
[2024-07-17] MEDS: piperacillin-tazobactam 3.375 GM in sodium chloride 0.9% (plus) 50 ML IV ×3 (05:43→23:08)
[2024-07-17 07:55] LABS: Partial Thromboplastin Time 60.4 SECONDS (23.9-36.7)
[2024-07-17] MEDS: memantine 5 mg tablet 10 MG PO ×2 (08:37→17:05)
[2024-07-17] MEDS: tamsulosin 0.4 mg Capsule PO (08:37)
--- NOTE | 2024-07-17 08:50 | PC.SOCIAL ---
IMM Update Pg 2 of IMM Not updated w/ patient as guardianship and level 2 are pending @ this time.
[2024-07-17 14:23] LABS: Partial Thromboplastin Time 55.4 SECONDS (23.9-36.7)
--- NOTE | 2024-07-17 19:25 | P.PN_ITS ---
Subjective 2 Subjective: She states overall is okay but not feeling great. Has still been having abdominal pain. Vitals/I&O/Wt Last Vital Signs Temp 98.4 F 07/17/24 15:15 Pulse 100 07/17/24 15:15 Resp 16 07/17/24 15:15 BP 117/63 07/17/24 15:15 Pulse Ox 95 07/17/24 15:15 O2 Del Method Room Air 07/17/24 15:15 07/17/24 07/17/24 07/17/24 06:59 14:59 22:59 Intake Total 1058.492 / 1372.732 361.10 / 361.10 170 / 531.10 Balance 1058.492 / 1172.732 361.10 / 361.10 170 / 531.10 Weight last 48 hrs Weight 45.405 kg Weight 43 kg Physical Exam 2 Narrative: Accompanied by her stepdaughter. Const: COMMON NORMALS: patient oriented x3 and alert GENERAL APPEARANCE: c ooperative ORIENTATION/CONSCIOUSNESS: Yes awake HENMT: COMMON NORMALS: oropharynx normal Neck/C-Spine: COMMON NORMALS: no JVD Resp: COMMON NORMALS: normal respiratory effort and clear to auscultation bilaterally AUSCULTATION: clear to auscultation bilaterally Cardio: COMMON NORMALS: no JVD, regular rhythm, S1 normal heart sound present, S2 normal heart sound present and No murmurs present (Cardio) RHYTHM: regular rhythm HEART SOUNDS: S1 normal heart sound present and S2 normal heart sound present GI: COMMON NORMALS: Normal to inspection, nondistended, normoactive bowel sounds present and Soft to palpation PALPATION: Yes Soft to palpation and Yes Tenderness to palpation present (GI) Extremity: COMMON NORMALS: no joint enlargement and no pedal edema Neuro: COMMON NORMALS: patient oriented x3 and moves all extremities S ENSORIUM/ORIENTATION: Yes alert Psych: MOOD & AFFECT: Yes anxious Skin: COMMON NORMALS: no rashes or lesions noted GENERAL SKIN EXAM: no rashes or lesions noted Urinary Catheter Management: Silva: Cath Placed During This Visit: yes, but has since been removed by the nurse Reason for Continuing Indwelling Catheter: Acute Urinary Retention or Obstruction Urinary Catheter Date of Insertion: 07/07/24 Urinary Catheter Time of Insertion: 14:30 Date Urinary Catheter Removed: 07/10/24 Time Urinary Catheter Discontinued: 13:23 Data 07/17/24 00:47 07/17/24 00:47 A&P Assessment and plan (1) Cholecystitis with cholelithiasis: Reviewed vitals, CBC, CMP. Noted afebrile, but without further improvement leukocytosis, slight increase today up to 14.48. Discussed with her and her stepdaughter. He is noted to have some improvement in bilirubin down to 1.4. Alk phos is normal. Still has been having some right upper quadrant pain. Revisited again regarding consideration of catheter drainage of gallbladder. Continue to reassess, she has not been wanting to have a procedure, but in case of further worsening discussed and she may consider as it may help improve her condition and symptoms. Eventually would need cholecystectomy. Continue IV antibiotics at current time. Repeat blood counts. CMP. Reviewed blood culture, so far negative. Follow-up. At current time continue heparin drip with anticipation that she may end up requiring intervention. Discussed with nursing, discussed with family service caseworker. Trial of clear liquids. Patient is on antibiotics. ursodiol. Monitor white count and biliary labs. Discussed with her stepdaughter. She has overall not had good understanding of her condition. Has not been oriented from seeing her yesterday. With suspected dementia. Arrangements underway also for her stepdaughter to become her guardian as per discussion with case management. (2) Pulmonary embolism: Reviewed CBC, PTT. So far maintaining hemoglobin, platelets. Continue heparin drip for now, monitor for risk of bleeding with heparin drip. Continue drip in case we have to discontinue for an intervention. (3) Hypotension: Trial of clear liquids. Low rate of LR. Risk of fluid overload. Maintain MAP 65 mmHg or above. Attestations 2 Medical Necessity Statement*: Continue admission for assessment and management of cholecystitis with large stone, limited goals of care in a lady with PE, on anticoagulation. and High MDM includes amount and/or complexity of data reviewed/ordered [ resulted lab(s)/test(s), ordered lab(s)/test(s) and other healthcare professional discussion] and described risk of complication, morbidity or mortality of management as documented Diagnoses Cholecystitis with cholelithiasis K80.10 Pulmonary embolism I26.99 Hypotension I95.9
[2024-07-17 20:35] LABS: Partial Thromboplastin Time 64.6 SECONDS (23.9-36.7)
[2024-07-17] MEDS: OLANZapine 5 mg TABLET 2.5 MG PO (20:51)
[2024-07-17] MEDS: mirtazapine 15 mg Tablet 30 MG PO (20:51)
[2024-07-17] MEDS: lactulose oral liq 20 gm/30 mL UDC PO (20:52)
[2024-07-17] MEDS: sodium chloride 0.9% 500 ML 999 ML IV (20:52)
[2024-07-18] VITALS (11 sets, daily range): BP systolic 119–135; BP diastolic 65–77; PULSE 85–108; RESP 12–18; TEMP 36.7–37.5; O2SAT 93–97; BMI 17.4
[2024-07-18 01:39] LABS: Basophils % 0.2 %; Eosinophils # 0.2 10^3/uL (0.0-0.8); Eosinophils % 1.2 %; Hematocrit 30.1 % (36-47); Lymphocytes # 0.9 10^3/uL (0.8-4.8); Lymphocytes % 6.3 %; Mean Corpuscular HGB Conc 33.9 g/dL (30-55); Mean Corpuscular Hemoglobin 31.1 pg (27-33); Mean Corpuscular Volume 91.8 fl (85-98); Mean Platelet Volume 11.8 fL (7.4-10.4); Monocytes # 0.9 10^3/uL (0.2-0.9); Monocytes % 5.7 %; Neutrophils # 12.92 10^3/uL (1.8-7.7); Nucleated Red Blood Cells % 0 %; Platelet Count 189 10^3/cmm (157-399); Red Blood Count 3.28 10^6/uL (3.85-5.65); Red Cell Distribution Width 14.6 % (12.1-15.1); White Blood Count 15.01 10^3/uL (3.29-11.43)
[2024-07-18 01:56] LABS: Alanine Aminotransferase 12 U/L (0-33); Albumin Level 2.4 g/dL (3.5-5.2); Alkaline Phosphatase 57 U/L (35-105); Aspartate Amino Transferase 12 U/L (0-32); Blood Urea Nitrogen 8 mg/dL (8-23); Calcium 7.4 mg/dL (8.5-10.5); Carbon Dioxide 23 mmol/L (22-29); Chloride 108 mmol/L (98-107); Creatinine Clr Calc Pharmacy 45.5627; Globulin 2.3 g/dL (1.3-4.6); Glucose 75 mg/dL (65-115); Osmolality Calculated 291 mOsm/kg (285-295); Sodium 142 mmol/L (136-145); Total Protein 4.7 g/dL (6.6-8.7)
[2024-07-18] MEDS: heparin drip 25,000 UNIT/500 ML PREMIX 14.7 UNIT IV (02:04)
[2024-07-18 02:12] LABS: Partial Thromboplastin Time 67.9 SECONDS (23.9-36.7)
[2024-07-18] MEDS: piperacillin-tazobactam 3.375 GM in sodium chloride 0.9% (plus) 50 ML IV ×3 (06:38→22:06)
[2024-07-18] MEDS: lactulose oral liq 20 gm/30 mL UDC PO (08:28)
[2024-07-18] MEDS: tamsulosin 0.4 mg Capsule PO (08:29)
[2024-07-18] MEDS: memantine 5 mg tablet 10 MG PO ×2 (08:30→17:29)
[2024-07-18] MEDS: megestrol 400 mg/10 mL UDC PO (08:31)
[2024-07-18] MEDS: cyanocobalamin 1,000 mcg Tablet 1000 MCG PO (08:32)
[2024-07-18 08:33] LABS: Partial Thromboplastin Time 50.5 SECONDS (23.9-36.7)
[2024-07-18] MEDS: sennosides-docusate Tablet 1 TAB PO (08:33)
[2024-07-18] MEDS: potassium chloride ER 20 mEq Tablet 40 MEQ PO (09:39)
[2024-07-18 10:54] LABS: Magnesium 1.8 mg/dL (1.7-2.3)
--- NOTE | 2024-07-18 11:58 | P.PN_ITS ---
Subjective 2 Subjective: She is not sure how she is doing. She is not able to tell me any information about her medical condition. Vitals/I&O/Wt Last Vital Signs Temp 98.6 F 07/18/24 11:38 Pulse 104 H 07/18/24 11:38 Resp 16 07/18/24 11:38 BP 124/69 07/18/24 11:38 Pulse Ox 95 07/18/24 11:38 O2 Del Method Room Air 07/18/24 11:38 07/17/24 07/18/24 07/18/24 22:59 06:59 14:59 Intake Total 1264.325 / 1625.425 636.583 / 2262.008 240.895 / 240.895 Output Total 600 / 600 300 / 900 Balance 664.325 / 1025.425 336.583 / 1362.008 240.895 / 240.895 Weight last 48 hrs Weight 46 kg Weight 45.405 kg Physical Exam 2 Const: COMMON NORMALS: patient oriented x3 and alert GENERAL APPEARANCE: c ooperative ORIENTATION/CONSCIOUSNESS: Yes awake HENMT: COMMON NORMALS: oropharynx normal Neck/C-Spine: COMMON NORMALS: no JVD Resp: COMMON NORMALS: normal respiratory effort and clear to auscultation bilaterally AUSCULTATION: clear to auscultation bilaterally Cardio: COMMON NORMALS: no JVD, regular rhythm, S1 normal heart sound present, S2 normal heart sound present and No murmurs present (Cardio) RHYTHM: regular rhythm HEART SOUNDS: S1 normal heart sound present and S2 normal heart sound present GI: COMMON NORMALS: Normal to inspection, nondistended, normoactive bowel sounds present, Soft to palpation and non-tender PALPATION: Yes Soft to palpation Extremity: COMMON NORMALS: no joint enlargement and no pedal edema Neuro: COMMON NORMALS: patient oriented x3 and moves all extremities S ENSORIUM/ORIENTATION: Yes alert Psych: MOOD & AFFECT: Yes anxious Skin: COMMON NORMALS: no rashes or lesions noted GENERAL SKIN EXAM: no rashes or lesions noted Urinary Catheter Management: Silva: Cath Placed During This Visit: yes, but has since been removed by the nurse Reason for Continuing Indwelling Catheter: Acute Urinary Retention or Obstruction Urinary Catheter Date of Insertion: 07/07/24 Urinary Catheter Time of Insertion: 14:30 Date Urinary Catheter Removed: 07/10/24 Time Urinary Catheter Discontinued: 13:23 Data 07/18/24 01:32 07/18/24 01:32 A&P Assessment and plan (1) Cholecystitis with cholelithiasis: Blood pressure became soft overnight, she received fluid boluses. Oral intake is not good per history obtained from nursing staff, continue IV fluid hydration for now. Reassess vitals, CBC, PTT, CMP, magnesium. She is afebrile, leukocytosis with some worsening up to 15. She is noted to have improvement in bilirubin down to normal today down to 1. Alk phos reviewed and is normal. As are AST and ALT. Continue IV antibiotics at current time. Continue to reassess, she has not been wanting to have a procedure, but in case of further worsening discussed and she may consider as it may help improve her condition and symptoms. Eventually would need cholecystectomy. Repeat blood counts. CMP. Reviewed blood culture, so far negative. Follow-up. At current time continue heparin drip with anticipation that she may end up requiring intervention. Monitor for risk of bleeding with IV anticoagulation, monitor blood counts, PTT. Discussed with nursing, discussed with pillowcase sewer. Trial of clear liquids. Patient is on antibiotics. ursodiol. Monitor white count and biliary labs. Hold lactulose. She has overall not had good understanding of her condition. Has not been oriented from seeing her yesterday. With suspected dementia. Arrangements underway also for her stepdaughter to become her guardian as per discussion with case management. Discussed with pillowcase sewer, we are filling out application for guardianship. (2) Pulmonary embolism: Reviewed CBC, PTT. So far maintaining hemoglobin, platelets. Continue heparin drip for now, monitor for risk of bleeding with heparin drip. Continue drip in case we have to discontinue for an intervention. (3) Hypotension: Received fluid boluses overnight. Hold lactulose. Trial of clear liquids. Continue gentle IV fluid hydration. Switch fluids to normal saline for compatibility. Monitor for risk of fluid overload. Maintain MAP 65 mmHg or above. Plan Hypokalemia: Replace. Repeat chemistry. Hypomagnesemia: Replace, recheck. Attestations 2 Medical Necessity Statement*: Continue admission for assessment and management of cholecystitis with large stone, limited goals of care in a lady with PE, on anticoagulation. and High MDM includes amount and/or complexity of data reviewed/ordered [ resulted lab(s)/test(s), ordered lab(s)/test(s), independent historian and other healthcare professional discussion] and described risk of complication, morbidity or mortality of management as documented Diagnoses Cholecystitis with cholelithiasis K80.10 Pulmonary embolism I26.99 Hypotension I95.9
[2024-07-18 15:42] LABS: Partial Thromboplastin Time 53.6 SECONDS (23.9-36.7)
[2024-07-18] MEDS: sodium chloride 0.9% 1,000 ML 50 ML IV (17:29)
[2024-07-18] MEDS: OLANZapine 5 mg TABLET 2.5 MG PO (22:06)
[2024-07-18] MEDS: mirtazapine 15 mg Tablet 30 MG PO (22:06)
[2024-07-18 22:13] LABS: Partial Thromboplastin Time 61.6 SECONDS (23.9-36.7)
--- NOTE | 2024-07-18 23:36 | ECG_ITS ---
[facility] Test Date: 2024-07-18 Pat Name: Monica Taylor Department: Room: 279 Gender: Female Corporate Officer: : 1950 Requested By: Blanca Niño Order Number: [id number] Reading MD: BLANCA DELGADO Measurements Intervals [place] Rate: 137 P: 47 DE: 113 QRS: -5 QRSD: 78 T: 50 QT: 318 QTc: 481 Interpretive Statements SINUS TACHYCARDIA WITH SHORT DE INTERVAL WITH FREQUENT SUPRAVENTRICULAR PREMATURE COMPLEXES MINIMAL ST DEPRESSION [0.025+ mV ST DEPRESSION] ABNORMAL RHYTHM ECG Compared to ECG 06/09/2024 12:07:23 Short DE interval now present ST (T wave) deviation now present Sinus rhythm no longer present Sinus arrhythmia no longer present Electronically Signed On 07-19-2024 00:21:48 GRAD INTERN by BLANCA DELGADO [email or web address]
[2024-07-19] VITALS (9 sets, daily range): BP systolic 99–110; BP diastolic 50–66; PULSE 19–111; RESP 14–19; TEMP 36.4–37.2; O2SAT 91–94
[2024-07-19] MEDS: amiodarone 150 MG/100 ML PREMIX 400 MG IV (00:12)
[2024-07-19 04:07] LABS: Basophils % 0.1 %; Eosinophils % 0.2 %; Lymphocytes # 0.5 10^3/uL (0.8-4.8); Lymphocytes % 2.7 %; Mean Corpuscular HGB Conc 34.5 g/dL (30-55); Mean Corpuscular Hemoglobin 31.4 pg (27-33); Mean Corpuscular Volume 90.9 fl (85-98); Mean Platelet Volume 11.3 fL (7.4-10.4); Monocytes # 1.2 10^3/uL (0.2-0.9); Monocytes % 6.3 %; Neutrophils % 90.1 %; Nucleated Red Blood Cells % 0 %; Platelet Count 216 10^3/cmm (157-399); Red Blood Count 3.41 10^6/uL (3.85-5.65); Red Cell Distribution Width 14.7 % (12.1-15.1); White Blood Count 19.19 10^3/uL (3.29-11.43)
[2024-07-19 04:31] LABS: Alanine Aminotransferase 11 U/L (0-33); Albumin Level 2.5 g/dL (3.5-5.2); Alkaline Phosphatase 64 U/L (35-105); Aspartate Amino Transferase 13 U/L (0-32); Blood Urea Nitrogen 5 mg/dL (8-23); Calcium 7.4 mg/dL (8.5-10.5); Carbon Dioxide 22 mmol/L (22-29); Chloride 107 mmol/L (98-107); Creatinine Clr Calc Pharmacy 51.9417; Globulin 2.5 g/dL (1.3-4.6); Glucose 116 mg/dL (65-115); Magnesium 1.6 mg/dL (1.7-2.3); Osmolality Calculated 286 mOsm/kg (285-295); Sodium 139 mmol/L (136-145); Total Bilirubin 0.8 mg/dL (0.15-1.2)
[2024-07-19] MEDS: heparin drip 25,000 UNIT/500 ML PREMIX 17 UNIT IV ×2 (06:23→09:40)
[2024-07-19] MEDS: piperacillin-tazobactam 3.375 GM in sodium chloride 0.9% (plus) 50 ML IV ×3 (06:24→22:48)
[2024-07-19] MEDS: magnesium sulfate premix 2 GM/50 ML PIGGYBACK IV (09:30)
[2024-07-19] MEDS: megestrol 400 mg/10 mL UDC PO (09:30)
[2024-07-19] MEDS: memantine 5 mg tablet 10 MG PO ×2 (09:31→17:37)
[2024-07-19] MEDS: ALPRAZolam 0.5 mg Tablet PO (09:31)
[2024-07-19] MEDS: cyanocobalamin 1,000 mcg Tablet 1000 MCG PO (09:31)
[2024-07-19] MEDS: tamsulosin 0.4 mg Capsule PO (09:31)
[2024-07-19 09:38] LABS: Partial Thromboplastin Time 65.8 SECONDS (23.9-36.7)
--- NOTE | 2024-07-19 11:06 | CT_ITS ---
WS: [id number] CT abdomen pelvis w con* [id number] REASON FOR EXAM: improved bili but rising leukocytosis after IV CONTRAST ADMINISTERED: 70 mL of Omnipaque 350. TOTAL EXAM DLP: 388.[address] scans at [facility] use at least one of these dose optimization techniques: automat ed exposure control; mA and/or kV adjustment per patient size (includes targeted exams where dose is matched to clinical indication); or iterative reconstruction. FINDINGS: Compared to the previous CT scan (unenhanced) 07/14/2024, there are now consolidative changes in the l roya bases which may represent atelectasis secondary to the bilateral pleural effusions which have als o developed since the previous examination. There is a lucency along the portal triads in the liver which usually represent edema secondary intra hepatic or perihepatic inflammation. Nonspecific. Again is noted the significantly enlarged gallbladder with a large calculus impacted in the neck of t he gallbladder with additional small stones in the fundus. The wall of the gallbladder is significantly thickened and irregular and shows increased enhancement. There are also areas of thinning without enhancement which may indicate mural necrosis. There is a moderate amount of pericholecystic fluid which is not readily identifiable on the previous examination of 07/14/2024. There is no significant free fluid beyond the gallbladder fossa or within the dependent pelvis. There appears to be delayed secretion of contrast from the kidneys bilaterally without obstruction. There is now noted to be significant subcutaneous edema in the abdominal wall and over the pelvis whi ch was not present on the previous examination. CT/CT abdomen pelvis w con* [id number] IMPRESSION: Interval development of presumed atelectasis in the lower lungs secondary to de velopment of bilateral pleural effusions. Interval development of a significant amount of pericholecystic fluid. Severely inflamed gallbladder wall with areas suspicious for necrosis. Delayed renal excretion of contrast. Interval development of anasarca.
--- NOTE | 2024-07-19 11:06 | XR_ITS ---
WS: [id number] XR chest 1V portable [id number] REASON FOR EXAM: rising leukocytosis FINDINGS: Compared to the previous examination of 06/27/2024, there are interstitial reticular interstitial and groundglass densities in the right lower lung with peribronchial cuffing. On the left the diaphragm is obscured and the costophrenic angle is blunted. The CT scan of 07/14/2024 of the abdomen and pelvis demonstrated no abnormality in the lower hemithoraces. XR/XR chest 1V portable [id number] IMPRESSION: Interval abnormality developing in the lower lung conrad which may represent co ngestive heart failure with atelectasis in the left lower lobe and left pleural effusion. A pneumonitis would need to be considered as well. The changes in the chest are likely related to the hydrops of the gallbladder a nd the acute cholecystitis demonstrated on the recent MRCP.
--- NOTE | 2024-07-19 11:13 | P.PN_ITS ---
Vitals/I&O/Wt Last Vital Signs Temp 98.1 F 07/19/24 11:11 Pulse 85 07/19/24 11:11 Resp 14 07/19/24 11:11 BP 102/61 07/19/24 11:11 Pulse Ox 94 07/19/24 11:11 O2 Del Method Room Air 07/19/24 11:11 07/18/24 07/19/24 07/19/24 22:59 06:59 14:59 Intake Total 1235.233 / 1476.128 278.350 / 1754.478 105.817 / 105.817 Balance 1235.233 / 1476.128 278.350 / 1754.478 105.817 / 105.817 Weight last 48 hrs Weight 47.355 kg Weight 46 kg Physical Exam 2 Narrative: Accompanied by her stepdaughter. Const: COMMON NORMALS: patient oriented x3 and alert GENERAL APPEARANCE: c ooperative ORIENTATION/CONSCIOUSNESS: Yes awake HENMT: COMMON NORMALS: oropharynx normal Neck/C-Spine: COMMON NORMALS: no JVD Resp: COMMON NORMALS: normal respiratory effort and clear to auscultation bilaterally AUSCULTATION: clear to auscultation bilaterally Cardio: COMMON NORMALS: no JVD, regular rhythm, S1 normal heart sound present, S2 normal heart sound present and No murmurs present (Cardio) RHYTHM: regular rhythm HEART SOUNDS: S1 normal heart sound present and S2 normal heart sound present GI: COMMON NORMALS: Normal to inspection, nondistended, normoactive bowel sounds present, Soft to palpation and non-tender PALPATION: Yes Soft to palpation and Yes Tenderness to palpation present (GI) Extremity: COMMON NORMALS: no joint enlargement and no pedal edema Neuro: COMMON NORMALS: patient oriented x3 and moves all extremities S ENSORIUM/ORIENTATION: Yes alert Psych: MOOD & AFFECT: Yes anxious Skin: COMMON NORMALS: no rashes or lesions noted GENERAL SKIN EXAM: no rashes or lesions noted Urinary Catheter Management: Silva: Cath Placed During This Visit: yes, but has since been removed by the nurse Reason for Continuing Indwelling Catheter: Acute Urinary Retention or Obstruction Urinary Catheter Date of Insertion: 07/07/24 Urinary Catheter Time of Insertion: 14:30 Date Urinary Catheter Removed: 07/10/24 Time Urinary Catheter Discontinued: 13:23 Data 07/19/24 11:33 07/19/24 03:35 A&P Assessment and plan (1) Leukocytosis: Rising leukocytosis today noted on review, WBC up to 19.9, neutrophils noted increased up to 17.3. Reviewed liver parameters, these have normalized, T. bili is down to 0.8. She states that her stomach still feels funny . Denies respiratory, urinary, integumentary or other symptoms. Per history obtained from nursing staff had a bowel movement, will request for C. difficile testing. Additionally discussed with her and her daughter reassessment with contrast- enhanced CT. Will additionally obtain chest x-ray, urinalysis. (2) Cholecystitis with cholelithiasis: Reviewed vitals, CMP, noted resolution of hyperbilirubinemia. Normal transaminases and alk phos. Calcium is not elevated. Patient Noted worsening leukocytosis up to 19. Additional reassessment with contrast- enhanced CT, reevaluate gallbladder, surroundings, or any other problem in the abdomen. Monitor for risk of contrast-induced nephropathy. Reassess chemistry. Blood pressure became soft overnight, she received fluid boluses. Oral intake is not good per history obtained from nursing staff, continue IV fluid hydration for now. Reassess vitals, CBC, PTT, CMP, magnesium. She is afebrile, leukocytosis with some worsening up to 15. She is noted to have improvement in bilirubin down to normal today down to 1. Alk phos reviewed and is normal. As are AST and ALT. Continue IV antibiotics at current time. Continue to reassess, she has not been wanting to have a procedure, but in case of further worsening discussed and she may consider as it may help improve her condition and symptoms. Eventually would need cholecystectomy. Repeat blood counts. CMP. Reviewed blood culture, so far negative. Follow-up. At current time continue heparin drip with anticipation that she may end up requiring intervention. Monitor for risk of bleeding with IV anticoagulation, monitor blood counts, PTT. Discussed with nursing, discussed with correctional case manager. Trial of clear liquids. Patient is on antibiotics. ursodiol. Monitor white count and biliary labs. Hold lactulose. She has overall not had good understanding of her condition. Has not been oriented from seeing her yesterday. With suspected dementia. Arrangements underway also for her stepdaughter to become her guardian as per discussion with case management. Discussed with correctional case manager, we are filling out application for guardianship. (3) Pulmonary embolism: Continue heparin drip. Reviewed hemoglobin, platelets. PTT. So far maintaining hemoglobin, platelets. Continue heparin drip for now, monitor for risk of bleeding with heparin drip. Continue drip in case we have to discontinue for an intervention. (4) Hypotension: Received fluid boluses overnight. Hold lactulose. Trial of clear liquids. Continue gentle IV fluid hydration. Switch fluids to normal saline for compatibility. Monitor for risk of fluid overload. Maintain MAP 65 mmHg or above. Plan Dementia: Has been lacking understanding of her medical condition. Deemed lacking decisional capacity on psychiatric assessment on review of psychiatrist note. Mini-Mental state exam score of 23. Continue memantine, mirtazapine, olanzapine, cyanocobalamin, megestrol. Discussed with correctional case manager. We are filling out application for guardianship. Hypokalemia: Replace. Repeat chemistry. Hypomagnesemia: Replace, recheck. Attestations 2 Medical Necessity Statement*: Continue admission for assessment and management of rising leukocytosis after cholecystitis with a large gall stone, limited goals of care in a lady with PE, on anticoagulation. and High MDM includes amount and/or complexity of data reviewed/ordered [ previous or external records, resulted lab(s)/test(s), ordered lab(s)/test(s), independent historian and other healthcare professional discussion] and described risk of complication, morbidity or mortality of management as documented Diagnoses Leukocytosis D72.829 Cholecystitis with cholelithiasis K80.10 Pulmonary embolism I26.99 Hypotension I95.9
[2024-07-19 11:47] LABS: Basophils % 0.2 %; Eosinophils # 0.1 10^3/uL (0.0-0.8); Eosinophils % 0.4 %; Lymphocytes % 5.9 %; Mean Corpuscular HGB Conc 33.4 g/dL (30-55); Mean Corpuscular Volume 92.7 fl (85-98); Mean Platelet Volume 11.7 fL (7.4-10.4); Monocytes % 5.7 %; Neutrophils # 15.33 10^3/uL (1.8-7.7); Neutrophils % 87.3 %; Nucleated Red Blood Cells % 0 %; Platelet Count 210 10^3/cmm (157-399); Red Blood Count 3.13 10^6/uL (3.85-5.65); Red Cell Distribution Width 14.9 % (12.1-15.1); White Blood Count 17.57 10^3/uL (3.29-11.43)
[2024-07-19] MEDS: sodium chloride 0.9% 1,000 ML 50 ML IV (13:08)
[2024-07-19 13:16] LABS: Bacteria Urine None Seen /hpf; RBC Urine 0-2 /hpf (0-2); Squamous Epithelial Cell Urine 0-5 /hpf (0-5); WBC Urine 0-5 /hpf (0-5)
[2024-07-19 13:21] LABS: Urine Appearance Clear (CLEAR); Urine Color Yellow (Yellow)
[2024-07-19 13:22] LABS: Add Urine Microscopic? YES; Bilirubin Urine Neg (Negative); Blood Urine Neg (Negative); Glucose Urine UA Norm (Normal); Ketones Urine 1+ (Negative); Leukocyte Esterase Urine Trace (Negative); Nitrate Urine Negative (Negative); Protein Urine Trace (Negative); Urobilinogen Urine Norm (Negative); pH Urine 6 (5-7)
--- NOTE | 2024-07-19 13:41 | PC.SOCIAL ---
IMM Update Pg 2 of IMM Not updated w/ patient as guardianship and level 2 are pending @ this time.
[2024-07-19] MEDS: iohexol 350 mg/mL 500 mL Btl (per mL) IV (15:26)
[2024-07-19 16:29] LABS: Partial Thromboplastin Time 48.1 SECONDS (23.9-36.7)
--- NOTE | 2024-07-19 16:55 | P.CONIM_ITS ---
Providers/Reason For Consult 2 Consulting Physician/Specialty*: Dr. Zepeda general surgery Reason for Consult*: Necrotic gallbladder Attending Physician: Josemanuel Eng History of Present Illness History of Present Illness Monica Taylor is a 74 year old female on anticoagulation whom surgery, consulted for a necrotic gallbladder. Patient presented with failure to thrive. Initially treated with antibiotics however her white count has been trending up. History of DVTs and PEs. Poor surgical candidate. Medications/Allergies Home Medications Medication Instructions Recorded Confirmed Last Taken Type No Known Home Medications 06/27/24 06/27/24 Unknown History Allergies Allergy/AdvReac Type Severity Reaction Status Date / Time diphenhydramine Allergy ADR-Anxiety Verified 06/09/24 09:24 [From Ronaldl] Current Medications Generic Name Dose Route Start Last Admin Trade Name Freq PRN Reason Stop Dose Admin Cyanocobalamin 1,000 mcg 07/05/24 09:00 07/19/24 09:31 Cyanocobalamin 1,000 Mcg Tablet PO 1,000 mcg DAILY CIARA Administration Piperacillin Sod/Tazobactam 50 mls @ 12.5 mls/hr 07/14/24 14:30 07/19/24 14:40 Sod 3.375 gm/ Sodium Chloride IV 12.5 mls/hr Q8H CIARA Administration Protocol Heparin Sodium/Sodium Chloride 25,000 unit in 500 mls @ 0 mls/hr 07/15/24 10:15 07/19/24 09:40 Heparin Drip IV 19.79 unit/kg/hr CONT CIARA 17 mls/hr Administration Protocol Per Protocol Lactulose 20 gm 07/08/24 09:00 07/18/24 08:28 Lactulose Oral Liq 20 Gm/30 Ml Udc PO 20 gm Q12H CIARA Administration Megestrol Acetate 400 mg 07/10/24 11:00 07/19/24 09:30 Megestrol 400 Mg/10 Ml Udc PO 400 mg DAILY CIARA Administration Memantine 10 mg 07/08/24 18:00 07/19/24 09:31 Memantine 5 Mg Tablet PO 10 mg BID CIARA Administration Mirtazapine 30 mg 07/10/24 21:00 07/18/24 22:06 Mirtazapine 15 Mg Tablet PO 30 mg BEDTIME CIARA Administration Olanzapine 2.5 mg 07/13/24 22:17 07/18/24 22:06 Olanzapine 5 Mg Tablet PO 2.5 mg BEDTIME CIARA Administration Tamsulosin HCl 0.4 mg 07/09/24 09:00 07/19/24 09:31 Tamsulosin 0.4 Mg Capsule PO 0.4 mg DAILY CIARA Administration Vitals/I&O/Wt Last Vital Signs Temp 98.1 F 07/19/24 15:09 Pulse 84 07/19/24 15:09 Resp 14 07/19/24 15:09 BP 101/62 07/19/24 15:09 Pulse Ox 94 07/19/24 15:09 O2 Del Method Room Air 07/19/24 15:09 07/19/24 07/19/24 07/19/24 06:59 14:59 22:59 Intake Total 278.350 / 0261.347 1537.317 / 1188.317 Output Total 300 / 300 Balance 278.350 / 1754.478 888.317 / 888.317 Weight last 48 hrs Weight 104 lb 6.4 oz Weight 101 lb 6.602 oz Physical Exam 2 Narrative: Chest: Unlabored breathing room air. No lymphadenopathy. Heart: Regular rate and rhythm. Abdomen: Soft, tender RUQ, nondistended. No masses or lymphadenopathy. Urinary Catheter Management: Silva: Cath Placed During This Visit: yes, but has since been removed by the nurse Reason for Continuing Indwelling Catheter: Acute Urinary Retention or Obstruction Urinary Catheter Date of Insertion: 07/07/24 Urinary Catheter Time of Insertion: 14:30 Date Urinary Catheter Removed: 07/10/24 Time Urinary Catheter Discontinued: 13:23 Data 07/19/24 11:33 07/19/24 03:35 A&P Assessment and plan (1) Gallbladder necrosis: Plan 74-year-old female who surgery got consulted for necrotic gallbladder. Poor surgical candidate. Patient on anticoagulation. Next step would be IR percutaneous cholecystostomy tube. Coding Level of Care Code 95134 Diagnoses Gallbladder necrosis K81.0 Time Spent (min) 30
[2024-07-19] MEDS: AA-Dex 4.25%-5% w/Lytes 1,000 ML with multivitamin inj 10 ML 42 ML IV (17:36)
--- NOTE | 2024-07-19 17:41 | PC.NURSE ---
Started PPN at 42ml/hr at 1745 on 07/19/24.
--- NOTE | 2024-07-19 19:25 | PM.TDS ---
Transfer Summary Providers Date of Admission: 06/27/24 15:44 Date of Discharge/Transfer: 07/19/24 Attending Provider at Admission: Blanca Niño MD Attending Provider at Transfer: Josemanuel Eng Transfer Plans: Anticipated date of transfer: 07/19/24. Diagnoses at Discharge Discharge Diagnosis (1) Gallbladder necrosis: Status: Acute Reason for Visit Reason for Visit eval Hospital Course Hospital Course Very pleasant 74-year-old lady was admitted due to failure to thrive, generalized weakness, poor appetite and oral intake, intermittent confusion, on admission also found to have left lower extremity DVT, as well as multiple right lung PEs, started on anticoagulation. Workup revealed B12 deficiency for which she has been receiving replacement. Head MRI showed no evidence of restricted diffusion to suggest acute ischemia. No intracranial pathology. Chronic senescent changes. Scattered paranasal sinus mucosal disease. On assessment by psychiatry was not found to be capable of making decisions. Patient has been asking her stepdaughter to make decisions for her. Guardianship, level 2 and [facility] placement have been pursued (accepted to [facility]). During hospitalization she also developed right upper quadrant pain, nausea, vomiting, assessment by abdominal CT with finding of distended gallbladder with large stone of 4.2 cm in proximal gallbladder, additional smaller stones, wall appearing thickened and edematous. Additionally assessed by MRCP which found cholelithiasis similar to prior with pericholecystic fluid suspicious for acute cholecystitis, mass effect on common bile duct at the level of gallbladder neck containing large gallstone with no obstruction. Common bile duct above and below the level of the gallbladder neck of normal caliber. She was not found to be a good surgical candidate. On further discussion of IR intervention at that time she was reluctant to pursue additional procedure unless there was absolutely no way around it. Anticipation of possibly needing intervention anticoagulation was switched from Eliquis to heparin drip. Subsequent workup was showing improvement with decreasing liver parameters, with eventual normalization of T. bili, transaminases. Improving leukocytosis, however, with some persistence of abdominal discomfort, right upper quadrant pain, persisting leukocytosis, still poor oral intake. Worsening leukocytosis today up to 19,000 revisited again with her and her daughter and further imaging was obtained to reassess gallbladder and exclude other sources of infection. Chest x-ray with atelectasis, could not exclude pneumonia bilateral lower lungs, small effusion of the left moderate, has not had respiratory symptoms, saturating well on room air. Possibly atelectasis, incentive spirometer is requested. Urinalysis unremarkable. Does not have any other integumentary symptoms. Had a bowel movement yesterday which was soft, C. difficile requested, although so far no additional bowel movement. Has continued on Zosyn. Has been started on PPN. With repeat CT abdomen pelvis with contrast does show, however, as discussed with her and her stepdaughter large amount of inflammation of the gallbladder with area suspicious for necrosis, significant amount of pericholecystic fluid. Per consultation with surgery discussed with them further recommendation for IR drainage which is unavailable at this facility. She is currently excepted to [facility] after discussion with hospitalist team for further assessment and management with consideration of possibly if needed return to our facility after the issue being addressed in case further hospitalization was required. Physical Exam Narrative: Accompanied by her stepdaughter. Const: COMMON NORMALS: patient oriented x3 and alert GENERAL APPEARANCE: cooperative ORIENTATION/CONSCIOUSNESS: Yes awake HENMT: COMMON NORMALS: oropharynx normal Neck/C-Spine: COMMON NORMALS: no JVD Resp: COMMON NORMALS: normal respiratory effort and clear to auscultation bilaterally AUSCULTATION: clear to auscultation bilaterally Cardio: COMMON NORMALS: no JVD, regular rhythm, S1 normal heart sound present, S2 normal heart sound present and No murmurs present (Cardio) RHYTHM: regular rhythm HEART SOUNDS: S1 normal heart sound present and S2 normal heart sound present GI: COMMON NORMALS: Normal to inspection, nondistended, normoactive bowel sounds present and Soft to palpation PALPATION: Yes Soft to palpation and Yes Tenderness to palpation present (GI) Extremity: COMMON NORMALS: no joint enlargement and no pedal edema Neuro: COMMON NORMALS: patient oriented x3 and moves all extremities SENSORIUM/ORIENTATION: Yes alert Psych: MOOD & AFFECT: Yes anxious Skin: COMMON NORMALS: no rashes or lesions noted GENERAL SKIN EXAM: no rashes or lesions noted Urinary Catheter Management: Silva: Cath Placed During This Visit: yes, but has since been removed by the nurse Reason for Continuing Indwelling Catheter: Acute Urinary Retention or Obstruction Urinary Catheter Date of Insertion: 07/07/24 Urinary Catheter Time of Insertion: 14:30 Date Urinary Catheter Removed: 07/10/24 Time Urinary Catheter Discontinued: 13:23 TS Data Studies Completed and Pending Pending at discharge Category Date Time Status C.Diff PCR (Lab) Routine Lab 07/19/24 11:15 Uncollected Complete Blood Count w/Auto AM LABS Lab 07/20/24 04:00 Ordered Complete Blood Count w/Auto AM LABS Lab 07/21/24 04:00 Ordered Comprehensive Metabolic Panel AM LABS Lab 07/20/24 04:00 Ordered Comprehensive Metabolic Panel AM LABS Lab 07/21/24 04:00 Ordered Magnesium AM LABS Lab 07/20/24 04:00 Ordered Occult Blood Stool [Immunochemical Fecal OCB] Routine Lab 07/18/24 08:48 Uncollected PTT [Partial Thromboplastin Time] Timed Lab 07/19/24 22:00 Ordered Phosphorus AM LABS Lab 07/20/24 04:00 Ordered CV. echo complete* [id number] Routine Ultrasound 07/15/24 01:16 Taken Completed Studies During Hospitalization Category Date Time Status CT abdomen pelvis w con* [id number] Routine Cat Scan 07/19/24 11:[address] abdomen pelvis wo con [id number] Routine Cat Scan 07/14/24 11:[address] head wo con* [id number] Stat Cat Scan 06/27/24 11:45 Completed CTA PE [CT angio chest PE protcl [id number]] Routine Cat Scan 06/27/24 17:42 Completed CXRP [XR chest 1V portable [id number]] Routine Exams 07/19/24 11:06 Completed XR KUB portable [id number] Routine Exams 07/07/24 15:58 Completed XR chest 1V portable [id number] Stat Exams 06/27/24 11:45 Completed XR foot LT min 3V* [id number] Stat Exams 06/27/24 11:45 Completed XR foot RT min 3V* [id number] Stat Exams 06/27/24 11:45 Completed MR MRCP [id number] Stat MRI 07/14/24 14:25 Completed MR head wo con* [id number] Routine MRI 06/29/24 15:42 [place] [id number] Routine Ultrasound 06/27/24 17:42 Completed Laboratory Last Values WBC 17.57 10^3/uL (3.29-11.43) H 07/19/24 11:33 RBC 3.13 10^6/uL (3.85-5.65) L 07/19/24 11:33 Hgb 9.70 g/dL (11.27-16.99) L 07/19/24 11:33 Hct 29.0 % (36-47) L 07/19/24 11:33 MCV 92.7 fl (85-98) 07/19/24 11:33 MCH 31.0 pg (27-33) 07/19/24 11:33 MCHC 33.4 g/dL (30-55) 07/19/24 11:33 RDW 14.9 % (12.1-15.1) 07/19/24 11:33 Plt Count 210 10^3/cmm (157-399) 07/19/24 11:33 MPV 11.7 fL (7.4-10.4) H 07/19/24 11:33 Neut % (Auto) 87.3 % 07/19/24 11:33 Lymph % (Auto) 5.9 % 07/19/24 11:33 [place] % (Auto) 5.7 % 07/19/24 11:33 Eos % (Auto) 0.4 % 07/19/24 11:33 Baso % (Auto) 0.2 % 07/19/24 11:33 Neut # (Auto) 15.33 10^3/uL (1.8-7.7) H 07/19/24 11:33 Lymph # (Auto) 1.0 10^3/uL (0.8-4.8) 07/19/24 11:33 [place] # (Auto) 1.0 10^3/uL (0.2-0.9) H 07/19/24 11:33 Eos # (Auto) 0.1 10^3/uL (0.0-0.8) 07/19/24 11:33 Baso # (Auto) 0.0 10^3/uL (0.0-0.1) 07/19/24 11:33 Nucleated RBC % (auto) 0 % 07/19/24 11:33 Nucleated RBCs # 0.0 /100WBC 07/19/24 11:33 ESR 5 mm/hr (0-15) 06/27/24 13:17 APTT 48.1 SECONDS (23.9-36.7) H 07/19/24 15:55 D-Dimer 3.13 ug/mLFEU (0-0.59) H 06/27/24 13:17 Sodium 139 mmol/L (136-145) 07/19/24 03:35 Potassium 3.0 mmol/L (3.5-5.1) L 07/19/24 03:35 Chloride 107 mmol/L (98-107) 07/19/24 03:35 Carbon Dioxide 22 mmol/L (22-29) 07/19/24 03:35 Anion Gap 13.0 (5-19) 07/19/24 03:35 BUN 5 mg/dL (8-23) L 07/19/24 03:35 Creatinine 0.5 mg/dL (0.5-0.9) 07/19/24 03:35 GFR Calculation Not Reportable 07/19/24 03:35 Glucose 116 mg/dL (65-115) H 07/19/24 03:35 Estimat Average Glucose 120 06/27/24 13:17 Hemoglobin A1c 5.8 % (4.0-6.0) 06/27/24 13:17 Calculated Osmolality 286 mOsm/kg (285-295) 07/19/24 03:35 Lactate 2.3 mmol/L (0.5-2.2) H 07/15/24 02:30 Calcium 7.4 mg/dL (8.5-10.5) L 07/19/24 03:35 Magnesium 1.6 mg/dL (1.7-2.3) L 07/19/24 03:35 Iron 72 ug/dL (37-145) 07/08/24 12:52 TIBC 163 mcg/dl 07/08/24 12:52 % Saturation 44.1 % (20-50) 07/08/24 12:52 Unsat Iron Binding 91 ug/dL (112-347) L 07/08/24 12:52 Total Bilirubin 0.8 mg/dL (0.15-1.2) 07/19/24 03:35 AST 13 U/L (0-32) 07/19/24 03:35 ALT 11 U/L (0-33) 07/19/24 03:35 Alkaline Phosphatase 64 U/L (35-105) 07/19/24 03:35 C-Reactive Protein 7.3 mg/L (0.0-4.9) H 06/27/24 13:17 Total Protein 5.0 g/dL (6.6-8.7) L 07/19/24 03:35 Albumin 2.5 g/dL (3.5-5.2) L 07/19/24 03:35 Globulin 2.5 g/dL (1.3-4.6) 07/19/24 03:35 Vitamin B12 199 pg/mL (232-1245) L 06/27/24 13:17 Procalcitonin 0.06 ng/mL (0-0.5) 06/27/24 13:17 TSH 2.44 uIU/mL (0.27-4.20) 06/27/24 13:17 Random Cortisol 10.88 ug/dL (2.47-19.5) 07/09/24 05:38 Urine Color Yellow (Yellow) 07/19/24 13:00 Urine Appearance Clear (CLEAR) 07/19/24 13:00 Urine pH 6 (5-7) 07/19/24 13:00 Ur Specific [place] 1.010 (1.005-1.030) 07/19/24 13:00 Urine Protein Trace (Negative) 07/19/24 13:00 Urine Glucose (UA) Norm (Normal) 07/19/24 13:00 Urine Ketones 1+ (Negative) H 07/19/24 13:00 Urine Blood Neg (Negative) 07/19/24 13:00 Urine Nitrate Negative (Negative) 07/19/24 13:00 Urine Bilirubin Neg (Negative) 07/19/24 13:00 Urine Urobilinogen Norm mg/dL (Negative) 07/19/24 13:00 Ur Leukocyte Esterase Trace (Negative) H 07/19/24 13:00 Urine RBC 0-2 /hpf (0-2) 07/19/24 13:00 Urine WBC 0-5 /hpf (0-5) 07/19/24 13:00 Ur Squamous Epith Cells 0-5 /hpf (0-5) 07/19/24 13:00 Amorphous Sediment Not Reportable 07/19/24 13:00 Urine Bacteria None seen /hpf (NONE) 07/19/24 13:00 Hyaline Casts 0.40 /lpf 07/19/24 13:00 Urine Mucus 2+ /hpf 07/07/24 00:15 Radiology Impressions Foot X-Ray 06/27/24 11:45 Impression: Negative left foot. Head CT 06/27/24 11:45 IMPRESSION: 1. No acute intracranial hemorrhage or edema. 2. Mild atrophy and mild small vessel disease. Chest CTA 06/27/24 17:42 IMPRESSION: 1. Right upper lobe posterior segmental, right lower lobar, and right lower posterior segmental pulmonary emboli. 2. No right heart strain. ADDENDUM: 06/28/24 0206 THIS REPORT CONTAINS FINDINGS THAT MAY BE CRITICAL TO PATIENT CARE. The findings were verbally communicated via telephone conference with Charge Nurse Irene Quintero at 2:03 AM CDT on 06/28/2024. The findings were acknowledged and understood. Venous Duplex 06/27/24 17:42 IMPRESSION: 1. Acute deep venous thrombosis is noted extending from the left popliteal vein through the left posterior tibial and peroneal veins. 2. No DVT in the right lower extremity. ADDENDUM: 06/27/24 2337 THIS REPORT CONTAINS FINDINGS THAT MAY BE CRITICAL TO PATIENT CARE. The findings were verbally communicated via telephone conference with Dr. Ray at 11:35 PM CDT on 06/27/2024. The findings were acknowledged and understood. Head MRI 06/29/24 15:42 IMPRESSION: 1. No evidence of restricted diffusion to suggest acute ischemia. No acute intracranial pathology is seen. 2. Chronic senescent changes as above. 3. Scattered paranasal sinus mucosal disease. KUB X-Ray 07/07/24 15:58 IMPRESSION: 1. Cholelithiasis 2. Findings consistent with a history of constipation. Cholangiopancreatography MRI 07/14/24 14:25 IMPRESSION: Cholelithiasis including the largest 4 cm gallstone in the anti dependent area within the gallbladder adjacent to the neck. Pericholecystic fluid suspicious for acute cholecystitis. There is mass effect on the common bile duct at the level of the gallbladder neck containing a large gallstone with no obstruction. The common bile duct both above and below the level of the gallbladder neck is of normal caliber. No choledocholithiasis. Abdomen/Pelvis CT 07/19/24 11:06 IMPRESSION: Interval development of presumed atelectasis in the lower lungs secondary to development of bilateral pleural effusions. Interval development of a significant amount of pericholecystic fluid. Severely inflamed gallbladder wall with areas suspicious for necrosis. Delayed renal excretion of contrast. Interval development of anasarca. Chest X-Ray 07/19/24 11:06 IMPRESSION: Interval abnormality developing in the lower lung conrad which may represent congestive heart failure with atelectasis in the left lower lobe and left pleural effusion. A pneumonitis would need to be considered as well. The changes in the chest are likely related to the hydrops of the gallbladder and the acute cholecystitis demonstrated on the recent MRCP. Recent Clincial Data Last Vital Signs Temp 98.1 F 07/19/24 15:09 Pulse 84 07/19/24 15:09 Resp 14 07/19/24 15:09 BP 101/62 07/19/24 15:09 Pulse Ox 94 07/19/24 15:09 O2 Del Method Room Air 07/19/24 15:09 Vital Signs Temp Pulse Resp BP Pulse Ox O2 Del Method 07/19/24 15:09 98.1 F 84 14 101/62 94 Room Air 07/19/24 11:11 98.1 F 85 14 102/61 94 Room Air 07/19/24 07:29 98.3 F 98 14 109/65 93 Room Air Intake & Output/Weight 07/17/24 07/18/24 07/19/24 07/20/24 06:59 06:59 06:59 06:59 Intake Total 1372.732 / 3337.117 4004.008 / 2262.008 1754.478 / 7311.706 1416.633 / 1626.633 Output Total 200 / 200 900 / 900 300 / 300 Balance 1172.732 / 7980.204 0158.008 / 2686.299 2627.478 / 8481.766 2360.633 / 1326.633 Weight 45.405 kg 46 kg 47.355 kg Vitals Last Vital Signs Temp 98.1 F 07/19/24 15:09 Pulse 84 07/19/24 15:09 Resp 14 07/19/24 15:09 BP 101/62 07/19/24 15:09 Pulse Ox 94 07/19/24 15:09 O2 Del Method Room Air 07/19/24 15:09 TS Medications Medications Alprazolam (Alprazolam 0.5 Mg Tablet) 0.25 mg PO TID PRN PRN Reason: ANXIETY Cyanocobalamin (Cyanocobalamin 1,000 Mcg Tablet) 1,000 mcg PO DAILY [facility] Last Admin: 07/19/24 09:31 Dose: 1,000 mcg Piperacillin Sod/Tazobactam (Sod 3.375 gm/ Sodium Chloride) 50 mls @ 12.5 mls/hr IV Q8H [facility]; Protocol Last Infusion: 07/19/24 18:47 Dose: Infused Heparin Sodium/Sodium Chloride (Heparin Drip) 25,000 unit in 500 mls @ 0 mls/hr IV CONT [facility]; Protocol Last Titration: 07/19/24 18:47 Dose: 20.95 unit/kg/hr, 18 mls/hr Multivitamins 10 ml/ Amino (Acids/Electrolytes/Dextrose) 1,010 mls @ 42 mls/hr IV .Q24H [facility] Last Admin: 07/19/24 17:36 Dose: 42 mls/hr Lactulose (Lactulose Oral Liq 20 Gm/30 Ml Udc) 20 gm PO Q12H [facility] Last Admin: 07/18/24 08:28 Dose: 20 gm Megestrol Acetate (Megestrol 400 Mg/10 Ml Udc) 400 mg PO DAILY [facility] Last Admin: 07/19/24 09:30 Dose: 400 mg Memantine (Memantine 5 Mg Tablet) 10 mg PO BID [facility] Last Admin: 07/19/24 17:37 Dose: 10 mg Mirtazapine (Mirtazapine 15 Mg Tablet) 30 mg PO BEDTIME [facility] Last Admin: 07/18/24 22:06 Dose: 30 mg Morphine Sulfate (Morphine 4 Mg/Ml Sdv 1 Ml) 1 mg IVP Q4H PRN PRN Reason: SEVERE PAIN Olanzapine (Olanzapine 5 Mg Tablet) 2.5 mg PO BEDTIME [facility] Last Admin: 07/18/24 22:06 Dose: 2.5 mg Tamsulosin HCl (Tamsulosin 0.4 Mg Capsule) 0.4 mg PO DAILY [facility] Last Admin: 07/19/24 09:31 Dose: 0.4 mg Discontinued Medications Acetaminophen (Acetaminophen 500 Mg Tablet) 500 mg PO Q4H PRN PRN Reason: fever Albuterol/Ipratropium (Ipratropium-Albuterol 3 Ml Neb) 3 ml INHALATION Q6H PRN PRN Reason: SHORTNESS OF BREATH Alprazolam (Alprazolam 0.5 Mg Tablet) 0.5 mg PO TID PRN PRN Reason: ANXIETY Last Admin: 07/19/24 09:31 Dose: 0.5 mg Amiodarone HCl (Amiodarone 50 Mg/Ml Sdv 3 Ml) 150 mg IVP ONCE ONE Stop: 07/18/24 23:45 Last Admin: 07/19/24 00:32 Dose: Not Given Amlodipine Besylate (Amlodipine 10 Mg Tablet) 10 mg PO DAILY [facility] Last Admin: 07/09/24 09:20 Dose: Not Given Amlodipine Besylate (Amlodipine 5 Mg Tablet) 10 mg PO ONCE ONE Stop: 07/08/24 11:16 Last Admin: 07/08/24 11:36 Dose: 10 mg Apixaban (Apixaban 5 Mg Tablet) 10 mg PO BID@0900,2100 [facility] Stop: 07/05/24 20:59 Last Admin: 07/05/24 08:48 Dose: 10 mg Apixaban (Apixaban 5 Mg Tablet) 5 mg PO BID@0900,2100 [facility] Last Admin: 07/15/24 08:22 Dose: 5 mg Ceftriaxone Sodium (Ceftriaxone 1,000 Mg Sdv) 1,000 mg IVP Q24H [facility] Stop: 06/30/24 03:00 Last Admin: 06/29/24 18:34 Dose: Not Given Cyanocobalamin (Cyanocobalamin 1,000 Mcg/Ml Sdv) 1,000 mcg IM DAILY [facility] Last Admin: 06/28/24 11:07 Dose: Not Given Cyanocobalamin (Cyanocobalamin 1,000 Mcg Tablet) 1,000 mcg PO DAILY [facility] Last Admin: 06/29/24 09:10 Dose: 1,000 mcg Cyanocobalamin (Cyanocobalamin 1,000 Mcg/Ml Sdv) 1,000 mcg IM DAILY [facility] Last Admin: 07/04/24 10:55 Dose: 1,000 mcg Donepezil HCl (Donepezil 5 Mg Tablet) 10 mg PO BEDTIME [facility] Last Admin: 07/13/24 20:22 Dose: 10 mg Enoxaparin Sodium (Enoxaparin 40 Mg/0.4 Ml Syringe) 40 mg SUBCUT Q24H [facility] Last Admin: 06/27/24 17:46 Dose: Not Given Enoxaparin Sodium (Enoxaparin 40 Mg/0.4 Ml Syringe) 40 mg SUBCUT Q12H [facility] Last Admin: 06/28/24 11:42 Dose: 40 mg Enoxaparin Sodium (Enoxaparin 40 Mg/0.4 Ml Syringe) 40 mg SUBCUT Q12H [facility] Last Admin: 07/13/24 00:08 Dose: 40 mg Escitalopram Oxalate (Escitalopram 10 Mg Tablet) 10 mg PO DAILY [facility] Last Admin: 07/08/24 09:12 Dose: 10 mg Haloperidol Lactate (Haloperidol Inj 5 Mg/Ml Inj 1 Ml) 2 mg IVP ONCE ONE Stop: 07/07/24 01:43 Last Admin: 07/07/24 02:14 Dose: 2 mg Haloperidol Lactate (Haloperidol Inj 5 Mg/Ml Inj 1 Ml) 2 mg IVP ONCE ONE Stop: 07/08/24 04:46 Last Admin: 07/08/24 04:52 Dose: 2 mg Haloperidol Lactate (Haloperidol Inj 5 Mg/Ml Inj 1 Ml) 2 mg IVP ONCE ONE Stop: 07/14/24 14:58 Last Admin: 07/14/24 15:13 Dose: 2 mg Sodium Chloride (Sodium Chloride 0.9%) 1,000 mls @ 75 mls/hr IV .[id number] [facility] Stop: 06/27/24 23:00 Last Infusion: 06/28/24 07:14 Dose: Infused Sodium Chloride (Sodium Chloride 0.9%) 1,000 mls @ 100 mls/hr IV .Q10H [facility] Last Infusion: 07/08/24 11:18 Dose: Infused Sodium Chloride (Sodium Chloride 0.9%) 500 mls @ 999 mls/hr IV .Q31M ONE Stop: 07/09/24 12:56 Last Infusion: 07/09/24 14:05 Dose: Infused Sodium Chloride (Sodium Chloride 0.9%) 1,000 mls @ 50 mls/hr IV .Q20H [facility] Last Infusion: 07/14/24 20:30 Dose: 0 mls/hr Sodium Chloride (Sodium Chloride 0.9%) 500 mls @ 999 mls/hr IV .Q31M ONE Stop: 07/14/24 17:02 Last Infusion: 07/14/24 17:17 Dose: Infused Lactated Ringer's (Lactated Ringers) 1,000 mls @ 999 mls/hr IV .Q1H1M ONE Stop: 07/15/24 01:01 Last Infusion: 07/15/24 01:45 Dose: Infused Lactated Ringer's (Lactated Ringers) 1,000 mls @ 999 mls/hr IV .Q1H1M ONE Stop: 07/15/24 02:15 Last Infusion: 07/15/24 02:43 Dose: Infused Magnesium Sulfate (Magnesium Sulfate Premix) 2 gm in 50 mls @ 50 mls/hr IV ONCE ONE Stop: 07/15/24 02:53 Last Infusion: 07/15/24 03:15 Dose: Infused Lactated Ringer's (Lactated Ringers) 1,000 mls @ 50 mls/hr IV .Q20H [facility] Last Infusion: 07/18/24 19:14 Dose: Infused Sodium Chloride (Sodium Chloride 0.9%) 500 mls @ 999 mls/hr IV .Q31M ONE Stop: 07/17/24 20:55 Last Infusion: 07/18/24 00:09 Dose: Infused Sodium Chloride (Sodium Chloride 0.9%) 1,000 mls @ 50 mls/hr IV .Q20H [facility] Last Infusion: 07/19/24 17:48 Dose: Infused Amiodarone HCl/Dextrose (Nexterone) 150 mg in 100 mls @ 400 mls/hr IV ONCE ONE Stop: 07/19/24 00:12 Last Infusion: 07/19/24 00:32 Dose: Infused Magnesium Sulfate (Magnesium Sulfate Premix) 2 gm in 50 mls @ 50 mls/hr IV ONCE ONE Stop: 07/19/24 10:08 Last Infusion: 07/19/24 11:31 Dose: Infused Iohexol (Iohexol 350 Mg/Ml 500 Ml Btl (Per Ml)) 0 ml IV ONCE ONE Stop: 06/28/24 00:54 Last Admin: 06/28/24 00:53 Dose: 75 ml Iohexol (Iohexol 350 Mg/Ml 500 Ml Btl (Per Ml)) 0 ml IV ONCE ONE Stop: 07/19/24 15:27 Last Admin: 07/19/24 15:26 Dose: 70 ml Lactulose (Lactulose Oral Liq 20 Gm/30 Ml Udc) 10 gm PO ONCE ONE Stop: 07/02/24 09:11 Last Admin: 07/02/24 09:34 Dose: 10 gm Lactulose (Lactulose Oral Liq 20 Gm/30 Ml Udc) 20 gm PO Q12H [facility] Last Admin: 07/07/24 17:15 Dose: 20 gm Levofloxacin (Levofloxacin 750 Mg Tablet) 750 mg PO DAILY@0600 [facility]; Protocol Last Admin: 07/02/24 04:47 Dose: 750 mg Levofloxacin (Levofloxacin 750 Mg Tablet) 750 mg PO Q48H [facility]; Protocol Lisinopril (Lisinopril 10 Mg Tablet) 10 mg PO DAILY [facility] Last Admin: 07/08/24 09:12 Dose: 10 mg Lorazepam (Lorazepam 0.5 Mg Tablet) 0.5 mg PO TID PRN PRN Reason: AGITATION Last Admin: 07/05/24 08:48 Dose: 0.5 mg Mirtazapine (Mirtazapine 15 Mg Tablet) 15 mg PO BEDTIME [facility] Last Admin: 07/09/24 21:02 Dose: 15 mg Morphine Sulfate (Morphine Ir 15 Mg Tablet) 15 mg PO Q6H PRN PRN Reason: MODERATE PAIN Non-Formulary Medication (Ursodiol) 300 mg PO BID [facility] Olanzapine (Olanzapine 5 Mg Tablet) 2.5 mg PO Q12H [facility] Last Admin: 06/30/24 15:52 Dose: 2.5 mg Olanzapine (Olanzapine 5 Mg Tablet) 2.5 mg PO Q12H [facility] Last Admin: 07/08/24 09:12 Dose: 2.5 mg Olanzapine (Olanzapine 5 Mg Odt) 2.5 mg PO BEDTIME [facility] Ondansetron HCl (Ondansetron 2 Mg/Ml Sdv 2 Ml) 4 mg IVP Q6H PRN PRN Reason: NAUSEA AND VOMITING Last Admin: 07/14/24 23:02 Dose: 4 mg Potassium Chloride (Potassium Chloride Er 20 Meq Tablet) 40 meq PO ONCE ONE Stop: 07/18/24 08:49 Last Admin: 07/18/24 09:39 Dose: 40 meq Senna/Docusate Sodium (Sennosides-Docusate Tablet) 1 tab PO DAILY [facility] Last Admin: 07/18/24 08:33 Dose: 1 tab Allergies diphenhydramine [From Benadryl] Allergy (Verified 06/09/24 09:24) ADR-Anxiety Home Medications No Known Home Medications 06/27/24 [History Confirmed 06/27/24] Discharge Plan Discharge Patient Disposition: Xfer Short-Term Hosp Condition: Stable Prescriptions: No Action No Known Home Medications Patient Instructions: Altered Mental Status (ED), Opioid Safety Transfer Attestations Time Spent in Transfer Care: greater than 30 min Quality Metrics Clinical Quality Measures [ No reported AMI, CVA or VTE this stay] Coding Level of Care Code 86220 Total time (in minutes) for Discharge: 75 Diagnoses Gallbladder necrosis K81.0
[2024-07-19] MEDS: ALPRAZolam 0.5 mg Tablet 0.25 MG PO (19:39)
--- NOTE | 2024-07-19 20:04 | PC.NURSE ---
Report called to TARYN Arroyo at [facility] at 1945 by TARYN Rai.
[2024-07-19 22:15] LABS: Partial Thromboplastin Time 60.5 SECONDS (23.9-36.7)
--- NOTE | 2024-07-19 22:56 | PC.NURSE ---
Patient is not arousable enough for 2100 medications, after recieving Xanax at shift change. Zyprexa and Remeron not administered by this nurse and physician was notified. Physician ordered for PPN to be on hold at this time prior to transfer.
[2024-07-20 00:41] VITALS: BP 97/57; PULSE 101; RESP 16; TEMP 36.8; O2SAT 90
--- NOTE | 2024-07-20 00:41 | PC.NURSE ---
Addendum entered by Jina Chavez RN 07/20/24 00:45: Krissy Leslie called at 0045 and spoke with Boogie, to inform that patient has left the facility via EMS.. Original Note: Patient taken via EMS at 0041 and stable for transfer. All questions by EMS answered at this time by this nurse. Physician gave orders via phone to this nurse to discontinue Heparin drip prior to transfer. EMS personnel given appropriate paperwork and patient belongings for transfer.
[2024-07-20 00:48] VITALS: BP 97/57; PULSE 101; O2SAT 90
== END 2024-07-20 00:45 | disposition short-term general hospital (02) | DRG 299 ==
LOC: ER 15:32 → MEDSURG 15:45 → ICU 07-14 19:44 → MEDSURG 07-16 17:27
PROVIDERS: Internal Medicine; Psychiatry & Neurology Psychiatry; Student in an Organized Health Care Education/Training Program; Admitting Provider Internal Medicine; Emergency Provider Emergency Medicine; Visit Provider Internal Medicine
DX: I82.432 Acute embolism and thrombosis of left popliteal vein (principal); G93.41 Metabolic encephalopathy; I26.99 Other pulmonary embolism without acute cor pulmonale; J18.9 Pneumonia, unspecified organism; K80.10 Calculus of gallbladder with chronic cholecystitis without obstruction; E46 Unspecified protein-calorie malnutrition; Z68.1 Body mass index [BMI] 19.9 or less, adult; J98.11 Atelectasis; I82.442 Acute embolism and thrombosis of left tibial vein; I82.452 Acute embolism and thrombosis of left peroneal vein; E86.0 Dehydration; F41.8 Other specified anxiety disorders; E53.8 Deficiency of other specified B group vitamins; K59.00 Constipation, unspecified; R33.9 Retention of urine, unspecified; F03.90 Unspecified dementia, unspecified severity, without behavioral disturbance, psychotic disturbance, mood disturbance, and anxiety; I95.9 Hypotension, unspecified; Z75.1 Person awaiting admission to adequate facility elsewhere
CPT/HCPCS: 36415; 51702; 70450; 70551; 71045; 71275; 73630; 74018; 74176; 74177; 74181; 80048; 80053; 81001; 82533; 82607; 83036; 83540; 83550; 83605; 83735; 84145; 84443; 85025; 85378; 85651; 85730; 86140; 87040; 87086; 92507; 92523; 92526; 92610; 93005; 93306; 93970; 96372; 96374; 96376; 97110; 97116; 97161; 97530; 99285; A4222; J0283; J0696; J1630; J1644; J1650; J2405; J2543; J3420; J3475; J7030; J7040; J7120